=== PATIENT | female | born 1980 | race Caucasian/White ===

== ENCOUNTER 2018-02-09 11:40 | Emergency (ER) | payer SELFPAY ==
[2018-02-09 12:33] LABS: Urine Blood NEGATIVE (NEG); Urine Glucose NEGATIVE (NEG); Urine Protein NEGATIVE (NEG); Urine Specific Gravity 1.015 (1.005-1.030); Urine pH 7.5 (5.0-7.0)
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
[2018-02-09 14:04] VITALS: TEMP 98.4
[2018-02-09 14:05] VITALS: BP 117/82; O2SAT 99
== END 2018-02-09 13:46 | disposition home or self-care (01) ==
LOC: ER 11:40
DX: S60.222A Contusion of left hand, initial encounter (principal); V49.49XA Driver injured in collision with other motor vehicles in traffic accident, initial encounter; Z72.0 Tobacco use; F32.9 Major depressive disorder, single episode, unspecified
CPT/HCPCS: 72125; 81003; 81025; 99284

== ENCOUNTER 2018-03-13 16:04 | Emergency (ER) | payer SELFPAY ==
[2018-03-13 17:08] LABS: Barbiturates NEGATIVE (NEGATIVE); Benzodiazepines POSITIVE (NEGATIVE); Cocaine NEGATIVE (NEGATIVE); METHAMPHETAM NEGATIVE (NEGATIVE); Methadone NEGATIVE (NEGATIVE); Opiates NEGATIVE (NEGATIVE); Phencyclidine NEGATIVE (NEGATIVE); THC Cannibis POSITIVE (NEGATIVE)
[2018-03-13 17:32] LABS: Absolute Monocytes 0.4 K/uL (0.1-1.3); Absolute Neutrophil 3.7 K/uL (1.8-8.0); Basophils % 0.6 % (0-1.3); Eosinophils % 3.9 % (0-4.4); Hematocrit 41.6 % (36.0-45.0); Lymphocytes % 30.8 % (15.3-44.8); MCV 92.9 fL (80-100); MPV 9.8 fL (7.6-11.3); Monocytes % 6.5 % (3.3-12.3); RBC Red Blood Cell Count 4.48 M/uL (3.86-4.86)
[2018-03-13 17:37] LABS: Protime INR 1.02
[2018-03-13 18:15] LABS: ALT/SGPT 25 U/L (12-78); AST/SGOT 23 U/L (15-37); Albumin 4.2 g/dL (3.4-5.0); Alkaline Phosphatase 60 U/L (45-117); BUN Blood Urea Nitrogen 9 mg/dL (7-18); Bicarbonate 25 mmol/L (21-32); Bilirubin Direct 0.1 mg/dL (0-0.2); Bilirubin Total 0.6 mg/dL (0.2-1.0); CKMB Creatine Kinase MB < 1.0 ng/mL (0.3-3.6); Creatine Phosphokinase 166 U/L (26-192); Glucose Level 86 mg/dL (74-106); Magnesium 1.9 mg/dL (1.8-2.4); NT PRO-BNP 13 pg/mL (<125); Potassium 3.8 mmol/L (3.5-5.1); Protein, Total 8.1 g/dL (6.4-8.2); Sodium Level 133 mmol/L (136-145); Troponin (Emerg Dept Use Only) < 0.02 ng/mL (0.0-0.045)
[2018-03-13] MEDS ORDERED: ASPIRIN 81 MG CHEWABLE TABLET ONE (18:31)
[2018-03-13] MEDS ORDERED: NA CHLORIDE 0.9% 500 ML ONE (18:31)
--- NOTE | 2018-03-13 18:42 | ER ---
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 Transition of care: patient was not received from another setting of care. Onset of symptoms was March 13, 2018. Risk Assessment: Do you want to hurt yourself or someone else? Patient reports no desire to harm self or others. Initial Sepsis Screen: Does the patient meet any 2 criteria? No. Patient's initial sepsis screen is negative. Does the patient have a suspected source of infection? No. Patient's initial sepsis screen is negative. Care prior to arrival: None. 16:10 Method Of Arrival: Ambulatory aj 16:10 Acuity: CHARLEEN 3 aj Triage Assessment: 16:12 General: Appears in no apparent distress. comfortable, Behavior is calm, cooperative, aj appropriate for age. Pain: Complains of pain in left trapezius, right trapezius, left scapular area, right scapular area, left subscapular area, right subscapular area and thoracic area. Neuro: Level of Consciousness is awake, alert, obeys commands, Oriented to person, place, time, situation, Appropriate for age. Cardiovascular: Capillary refill < 3 seconds in bilateral fingers Patient's skin is warm and dry. Respiratory: Airway is patent Respiratory effort is even, unlabored, Respiratory pattern is regular, symmetrical. Derm: Skin is intact, is healthy with good turgor, Skin is pink, warm \\T\\ dry. normal. Musculoskeletal: Reports pain in back. 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 - Social history:: Smoking status: Patient uses tobacco products, smokes one-half pack cigarettes per day. - Ebola Screening: : Patient negative for fever greater than or equal to 101.5 degrees Fahrenheit, and additional compatible Ebola Virus Disease symptoms Patient denies exposure to infectious person Patient denies travel to an Ebola-affected area in the 21 days before illness onset No symptoms or risks identified at this time. - Family history:: not pertinent. Screenin:30 Abuse screen: Denies threats or abuse. Denies injuries from another. Nutritional jl7 screening: No deficits noted. Tuberculosis screening: No symptoms or risk factors identified. Fall Risk None identified. Assessment: 16:30 General: Appears in no apparent distress. uncomfortable, Behavior is cooperative, jl7 anxious. Pain: Complains of pain in mid-sternal area Pain radiates to right jaw, left jaw and back Pain currently is 4 out of 10 on a pain scale. at worst was 10 out of 10 on a pain scale. Quality of pain is described as squeezing, Pain began "I've always had chest pain with my period but it goes away and this is not going away and I'm not on my period." Is intermittent. Neuro: Level of Consciousness is awake, alert, obeys commands, Oriented to person, place, time, situation. Cardiovascular: Heart tones present Patient's skin is warm and dry. Respiratory: Airway is patent Respiratory effort is even, unlabored, Respiratory pattern is regular, symmetrical, Breath sounds are clear bilaterally. GI: Reports diarrhea, nausea, since X 1 month Patient currently denies vomiting. : No signs and/or symptoms were reported regarding the genitourinary system. EENT: No signs and/or symptoms were reported regarding the EENT system. Derm: Skin is pink, warm \\T\\ dry. Musculoskeletal: No signs and/or symptoms reported regarding the musculoskeletal system. 17:30 Reassessment: No changes from previously documented assessment. Patient and/or family jl7 updated on plan of care and expected duration. Pain level reassessed. Patient is alert, oriented x 3, equal unlabored respirations, skin warm/dry/pink. 18:30 Reassessment: Patient appears in no apparent distress at this time. Patient and/or jl7 family updated on plan of care and expected duration. Pain level reassessed. Patient is alert, oriented x 3, equal unlabored respirations, skin warm/dry/pink. 19:00 Reassessment: RECD REPORT FROM VINNY HODGE. 37YO WF P/W CP AND ANXIETY. INITIAL CARDIAC bp ENZYMES AND EKG NEGATIVE, REPEAT RESULTS PENDING. VS STABLE ON MONITOR. 19:47 Reassessment: Patient appears in no apparent distress at this time. Patient and/or tl2 family updated on plan of care and expected duration. Pain level reassessed. Patient is alert, oriented x 3, equal unlabored respirations, skin warm/dry/pink. Pt verbalized understanding of discharge instructions, need for follow up and prescription usage Patient states feeling better. Vital Signs: 16:12 BP 100 / 66; Pulse 83; Resp 15; Temp 98.4; Pulse Ox 100% on R/A; Weight 90.72 kg; aj Height 5 ft. 6 in. (167.64 cm); 17:25 BP 129 / 72; Pulse 76; Resp 16 S; Pulse Ox 100% on R/A; Pain 4/10; jl7 18:45 BP 110 / 73; Pulse 68; Resp 16; Pulse Ox 100% ; jl7 19:15 BP 111 / 72; Pulse 55; Resp 14; Pulse Ox 99% ; bp 19:47 BP 111 / 72; Pulse 65; Resp 18; Pulse Ox 99% on R/A; tl2 16:12 Body Mass Index 32.28 (90.72 kg, 167.64 cm) ED Course: 16:06 Patient arrived in ED. mr 16:06 Akiko Fraser DO is Private Physician. mr 16:11 Triage completed. 16:12 Arm band placed on right wrist. Patient placed in waiting room, Patient notified of wait time. 16:14 Dixon Donald MD is Attending Physician. [facility] 16:23 EKG done, by order entry technician. reviewed by Dixon Donald MD. 3 16:24 Vinny Taylor, NAVEEN is Primary Nurse. jl7 16:30 Patient has correct armband on for positive identification. Placed in gown. Bed in low jl7 position. Call light in reach. Side rails up X 1. conveyor monitor on. Pulse ox on. NIBP on. 16:30 Urine collected: clean catch specimen, clear. Patient maintains SpO2 saturation greater jl7 than 95% on room air. 17:22 Initial lab(s) drawn, by me, sent to lab. Inserted saline lock: 22 gauge in left wrist, jl7 using aseptic technique. Blood collected. 18:41 Akiko Fraser DO is Referral Physician. [facility] 19:10 Primary Nurse role handed off by Vinny Taylor RN jl7 19:10 Report given to NAVEEN Bailon. jl7 19:14 Uvaldo Ledesma RN is Primary Nurse. bp 19:47 No provider procedures requiring assistance completed. IV discontinued, intact, tl2 bleeding controlled, No redness/swelling at site. Pressure dressing applied. Administered Medications: 18:00 Drug: Aspirin Chewable Tablet 324 mg Route: PO; jl7 19:09 Follow up: Response: No adverse reaction jl7 18:00 Drug: NS 0.9% 500 ml Route: IV; Rate: bolus; Site: left wrist; jl7 19:19 Follow up: IV Status: Completed infusion; IV Intake: 500ml bp Intake: 19:19 IV: 500ml; Total: 500ml. bp Outcome: 18:42 Discharge ordered by . bailey 19:47 Discharged to home ambulatory, with family. tl2 19:47 Condition: stable 19:47 Discharge instructions given to patient, family, Instructed on discharge instructions, follow up and referral plans. medication usage, Demonstrated understanding of instructions, follow-up care, medications, Prescriptions given X 2. 19:52 Patient left the ED. tl2 Signatures: Herminia Barrow RN RN aj Anderson, Corey, MD MD cha Rivera, Maria mr Knox, Taylor, RN RN tl2 Vinny Taylor RN RN jl7 Peltier, Brian, RN RN bp Montes, Shakira 3 Corrections: (The following items were deleted from the chart) 19:10 18:30 Report given to NAVEEN Bailon7
--- NOTE | 2018-03-13 18:42 | EDPHYS ---
Physician Documentation [facility] Name: Minesh Hanley Age: 37 yrs Sex: Female : 1980 Arrival Date: 03/13/2018 Time: 16:06 Bed 6 Private MD: Akiko Fraser H ED Physician Dixon Donald HPI: 03/13 17:07 This 37 yrs old Female presents to ER via Ambulatory with complaints of Chest bailey Pain. 17:07 The patient or guardian reports chest pain that is located primarily in the anterior bailey chest wall. The pain radiates to. Associated signs and symptoms: Pertinent positives: shortness of breath. The chest pain is described as a pressure, squeezing. Duration: The patient or guardian reports multiple episodes, with no pattern. Modifying factors: The symptoms are alleviated by nothing. the symptoms are aggravated by nothing. Severity of pain: At its worst the pain was moderate in the emergency department the pain has improved mildly. The patient has not experienced similar symptoms in the past. 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 - Social history:: Smoking status: Patient uses tobacco products, smokes one-half pack cigarettes per day. - Ebola Screening: : Patient negative for fever greater than or equal to 101.5 degrees Fahrenheit, and additional compatible Ebola Virus Disease symptoms Patient denies exposure to infectious person Patient denies travel to an Ebola-affected area in the 21 days before illness onset No symptoms or risks identified at this time. - Family history:: not pertinent. ROS: 17:07 Constitutional: Negative for fever, chills, and weight loss, Eyes: Negative for injury, bailey pain, redness, and discharge, ENT: Negative for injury, pain, and discharge, Neck: Negative for injury, pain, and swelling, Respiratory: Negative for shortness of breath, cough, wheezing, and pleuritic chest pain, Abdomen/GI: Negative for abdominal pain, nausea, vomiting, diarrhea, and constipation, Back: Negative for injury and pain, : Negative for injury, bleeding, discharge, and swelling, MS/Extremity: Negative for injury and deformity, Skin: Negative for injury, rash, and discoloration, Neuro: Negative for headache, weakness, numbness, tingling, and seizure, Psych: Negative for depression, anxiety, suicide ideation, homicidal ideation, and hallucinations, Allergy/Immunology: Negative for hives, rash, and allergies, Endocrine: Negative for neck swelling, polydipsia, polyuria, polyphagia, and marked weight changes, Hematologic/Lymphatic: Negative for swollen nodes, abnormal bleeding, and unusual bruising. 17:07 Cardiovascular: Positive for chest pain, of the chest. Exam: 17:07 Constitutional: This is a well developed, well nourished patient who is awake, alert, bailey and in no acute distress. Head/Face: Normocephalic, atraumatic. Eyes: Pupils equal round and reactive to light, extra-ocular motions intact. Lids and lashes normal. Conjunctiva and sclera are non-icteric and not injected. Cornea within normal limits. Periorbital areas with no swelling, redness, or edema. ENT: Nares patent. No nasal discharge, no septal abnormalities noted. Tympanic membranes are normal and external auditory canals are clear. Oropharynx with no redness, swelling, or masses, exudates, or evidence of obstruction, uvula midline. Mucous membranes moist. Neck: Trachea midline, no thyromegaly or masses palpated, and no cervical lymphadenopathy. Supple, full range of motion without nuchal rigidity, or vertebral point tenderness. No Meningismus. Chest/axilla: Normal chest wall appearance and motion. Nontender with no deformity. No lesions are appreciated. Cardiovascular: Regular rate and rhythm with a normal S1 and S2. No gallops, murmurs, or rubs. Normal PMI, no JVD. No pulse deficits. Respiratory: Lungs have equal breath sounds bilaterally, clear to auscultation and percussion. No rales, rhonchi or wheezes noted. No increased work of breathing, no retractions or nasal flaring. Abdomen/GI: Soft, non-tender, with normal bowel sounds. No distension or tympany. No guarding or rebound. No evidence of tenderness throughout. Back: No spinal tenderness. No costovertebral tenderness. Full range of motion. Skin: Warm, dry with normal turgor. Normal color with no rashes, no lesions, and no evidence of cellulitis. MS/ Extremity: Pulses equal, no cyanosis. Neurovascular intact. Full, normal range of motion. Neuro: Awake and alert, GCS 15, oriented to person, place, time, and situation. Cranial nerves II-XII grossly intact. Motor strength 5/5 in all extremities. Sensory grossly intact. Cerebellar exam normal. Normal gait. Psych: Awake, alert, with orientation to person, place and time. Behavior, mood, and affect are within normal limits. 17:07 Musculoskeletal/extremity: DVT Exam: No signs of deep vein thrombosis. no pain, no swelling, no tenderness, negative Homans' sign noted on exam, no appreciated bluish discoloration, no erythema, no increased warmth. Vital Signs: 16:12 BP 100 / 66; Pulse 83; Resp 15; Temp 98.4; Pulse Ox 100% on R/A; Weight 90.72 kg; aj Height 5 ft. 6 in. (167.64 cm); 17:25 BP 129 / 72; Pulse 76; Resp 16 S; Pulse Ox 100% on R/A; Pain 4/10; jl7 18:45 BP 110 / 73; Pulse 68; Resp 16; Pulse Ox 100% ; jl7 19:15 BP 111 / 72; Pulse 55; Resp 14; Pulse Ox 99% ; bp 19:47 BP 111 / 72; Pulse 65; Resp 18; Pulse Ox 99% on R/A; tl2 16:12 Body Mass Index 32.28 (90.72 kg, 167.64 cm) MDM: 16:14 Patient medically screened. [facility] 17:09 Data reviewed: vital signs, nurses notes, lab test result(s), EKG. [facility] 03/13 16:17 Order name: Urine Culture [facility] 03/13 16:17 Order name: UDS; Complete Time: 18:20 [facility] 03/13 16:37 Order name: Urine Dipstick--Ancillary (enter results) 03/13 17:05 Order name: Test, Serum; Complete Time: 19:20 [facility] 03/13 17:07 Order name: Basic Metabolic Panel; Complete Time: 18:20 03/13 17:07 Order name: CBC with Diff; Complete Time: 18:20 03/13 17:07 Order name: Ckmb; Complete Time: 18:20 03/13 17:07 Order name: CPK; Complete Time: 18:20 03/13 17:07 Order name: LFT's; Complete Time: 18:20 03/13 17:07 Order name: Magnesium; Complete Time: 18:20 03/13 17:07 Order name: NT PRO-BNP; Complete Time: 18:20 03/13 17:07 Order name: PT-INR; Complete Time: 18:20 03/13 17:07 Order name: Ptt, Activated; Complete Time: 18:20 03/13 17:07 Order name: Troponin (emerg Dept Use Only); Complete Time: 18:20 03/13 16:17 Order name: Urine Dipstick-Ancillary (obtain specimen); Complete Time: 16:37 03/13 16:17 Order name: Urine Test (obtain specimen); Complete Time: 19:05 03/13 16:17 Order name: EKG; Complete Time: 16:17 03/13 16:17 Order name: EKG - Nurse/Tech; Complete Time: 16:38 03/13 17:07 Order name: Cardiac monitoring; Complete Time: 17:21 03/13 17:07 Order name: IV Saline Lock; Complete Time: 17:21 03/13 17:07 Order name: Labs collected and sent; Complete Time: 17:21 03/13 17:07 Order name: O2 Per Protocol; Complete Time: 17:21 03/13 17:07 Order name: O2 Sat Monitoring; Complete Time: 17:21 03/13 17:07 Order name: D-Dimer; Complete Time: 18:20 03/13 18:40 Order name: Ckmb; Complete Time: 19:41 03/13 18:40 Order name: Creatine Phosphokinase; Complete Time: 19:41 03/13 18:40 Order name: Troponin (emerg Dept Use Only); Complete Time: 19:41 03/13 18:40 Order name: Repeat Cardiac Enzymes at; Complete Time: 19:05 [facility] Administered Medications: 18:00 Drug: Aspirin Chewable Tablet 324 mg Route: PO; [facility] 19:09 Follow up: Response: No adverse reaction [facility] 18:00 Drug: NS 0.9% 500 ml Route: IV; Rate: bolus; Site: left wrist; [facility] 19:19 Follow up: IV Status: Completed infusion; IV Intake: 500ml bp Disposition: 03/13/18 18:42 Discharged to Home. Impression: Chest pain, unspecified. - Condition is Stable. - Discharge Instructions: Nonspecific Chest Pain, Nonspecific Chest Pain, [id number]. - Prescriptions for Pepcid 20 mg Oral Tablet - take 1 tablet by ORAL route every 12 hours for 10 days; 20 tablet. Motrin IB 200 mg Oral Tablet - take 2 tablet by ORAL route every 6 hours As needed as needed with food; 30 tablet. - Medication Reconciliation Form, Thank You Letter, Antibiotic Education, Prescription Opioid Use form. - Follow up: Akiko Fraser DO; When: 1 - 2 days; Reason: Recheck today's complaints, Continuance of care, Re-evaluation by your physician. - Problem is new. - Symptoms have improved. Signatures: Dispatcher [employer] EDHerminia Galan, RN RN Dixon Dietz MD MD cha Knox, Taylor, RN RN tl2 Calin Taylor RN RN jl7 Uvaldo Ledesma RN bp Corrections: (The following items were deleted from the chart) 19:52 18:42 03/13/2018 18:42 Discharged to Home. Impression: Chest pain, unspecified. tl2 Condition is Stable. Forms are Medication Reconciliation Form, Thank You Letter, Antibiotic Education, Prescription Opioid Use. Follow up: Akiko Fraser; When: 1 - 2 days; Reason: Recheck today's complaints, Continuance of care, Re-evaluation by your physician. Problem is new. Symptoms have improved. bailey
[2018-03-13 19:26] LABS: CKMB Creatine Kinase MB < 1.0 ng/mL (0.3-3.6); Creatine Phosphokinase 126 U/L (26-192); Troponin (Emerg Dept Use Only) < 0.02 ng/mL (0.0-0.045)
[2018-03-13 20:06] VITALS: TEMP 98.4
[2018-03-13 20:08] VITALS: BP 111/72; O2SAT 99
[2018-03-13 20:31] LABS: Urine Blood TRACE (NEG); Urine Glucose NEGATIVE (NEG); Urine Protein NEGATIVE (NEG); Urine Specific Gravity 1.005 (1.005-1.030); Urine pH 5.5 (5.0-7.0)
--- NOTE | 2018-03-14 12:10 | EKG ---
Test Date: 2018-03-13 Test Time: 16:19:00 Fish Technologist: ANDRADE MEASUREMENT RESULTS: Intervals: Rate: 90 MD: 114 QRSD: 74 QT: 344 QTc: 420 [place]: P: 72 MD: 114 QRS: 66 T: 45 INTERPRETIVE STATEMENTS: Normal sinus rhythm with sinus arrhythmia Nonspecific T wave abnormality Abnormal ECG Compared to ECG 01/21/2016 11:43:36 T-wave abnormality now present Electronically Signed On 03-14-18 12:07:37 CDT by Víctor Putnam
== END 2018-03-13 19:52 | disposition home or self-care (01) ==
LOC: ER 16:04
DX: R07.9 Chest pain, unspecified (principal); F17.210 Nicotine dependence, cigarettes, uncomplicated; F32.9 Major depressive disorder, single episode, unspecified; F41.9 Anxiety disorder, unspecified
CPT/HCPCS: 36415; 80048; 80076; 80307; 81003; 82550; 82553; 83735; 83880; 84484; 84703; 85025; 85379; 85610; 85730; 87086; 87088; 93005; 96360; 99285

== ENCOUNTER 2018-09-25 23:03 | Emergency (ER) | payer SELFPAY ==
[2018-09-25 23:41] LABS: Barbiturates NEGATIVE (NEGATIVE); Benzodiazepines NEGATIVE (NEGATIVE); Cocaine NEGATIVE (NEGATIVE); METHAMPHETAM NEGATIVE (NEGATIVE); Methadone NEGATIVE (NEGATIVE); Opiates NEGATIVE (NEGATIVE); Phencyclidine NEGATIVE (NEGATIVE); THC Cannibis POSITIVE (NEGATIVE)
[2018-09-25 23:47] LABS: Urine Blood 1+ (NEG); Urine Glucose NEGATIVE (NEG); Urine Protein NEGATIVE (NEG); Urine Specific Gravity <1.005 (1.005-1.030); Urine pH 5.5 (5.0-7.0)
[2018-09-25 23:59] LABS: Absolute Lymphocytes (CBC) 2.3 K/uL (0.7-4.9); Absolute Monocytes 0.4 K/uL (0.1-1.3); Absolute Neutrophil 2.9 K/uL (1.8-8.0); Basophils % 0.3 % (0-1.3); Eosinophils % 2.4 % (0-4.4); Hematocrit 40.5 % (36.0-45.0); Lymphocytes % 39.9 % (15.3-44.8); MPV 10.2 fL (7.6-11.3); Monocytes % 6.8 % (3.3-12.3); RBC Red Blood Cell Count 4.35 M/uL (3.86-4.86)
[2018-09-26 00:04] LABS: Protime INR 1.06
[2018-09-26 00:21] LABS: ALT/SGPT 28 U/L (12-78); AST/SGOT 19 U/L (15-37); Albumin 3.9 g/dL (3.4-5.0); Alkaline Phosphatase 60 U/L (45-117); BUN Blood Urea Nitrogen 5 mg/dL (7-18); Bicarbonate 24 mmol/L (21-32); Bilirubin Direct 0.1 mg/dL (0-0.2); Bilirubin Total 0.4 mg/dL (0.2-1.0); Glucose Level 97 mg/dL (74-106); Potassium 3.4 mmol/L (3.5-5.1); Protein, Total 7.5 g/dL (6.4-8.2); Sodium Level 142 mmol/L (136-145)
[2018-09-26] MEDS ORDERED: ONDANSETRON 4 MG/2 ML VIAL ONE (00:32)
[2018-09-26] MEDS ORDERED: TETANUS & DIPHTHERIA TOX,ADULT 0.5 ML VIAL ONE (00:39)
[2018-09-26] MEDS ORDERED: THIAMINE 200 MG/2 ML INJ ONE (00:39)
[2018-09-26] MEDS ORDERED: NA CHLORIDE 0.9% 1,000 ML ONE (00:39)
[2018-09-26] MEDS ORDERED: D5.45NS W/KCL 20MEQ 1,000 ML IV ONE (01:53)
[2018-09-26] MEDS ORDERED: LIDOCAINE 1% W/EPI 1:100,000 MDV 50 ML VIAL ONE (06:07)
--- NOTE | 2018-09-26 06:32 | ER ---
Nurse's Notes [facility] Name: Minesh Hanley Age: 37 yrs Sex: Female : 1980 Arrival Date: 09/25/2018 Time: 23:07 Bed 17 Private MD: Diagnosis: Suicidal ideations;Suicide attempt;Major depressive disorder, recurrent;Alcohol abuse with intoxication;Hypokalemia;Laceration without foreign body of abdominal wall, epigastric region without penetration into peritoneal cavity-superficial Presentation: 09/25 23:13 Presenting complaint: Patient states: she was upset because her significant other left aa1 her yesterday and took their kids with him and wanted to hurt herself. Pt has multiple self-inflicted lacerations to abdomen from a razor blade with no active bleeding. Reports she has made previous attempts to harm herself in the past as well. Transition of care: patient was not received from another setting of care. Onset of symptoms was September 25, 2018. Risk Assessment: Do you want to hurt yourself or someone else? Patient reports desire/thoughts of hurting themselves or someone else. Provider notified. Initial Sepsis Screen: Does the patient meet any 2 criteria? No. Patient's initial sepsis screen is negative. Does the patient have a suspected source of infection? Yes: Skin breakdown/wound. Care prior to arrival: None. 23:13 Method Of Arrival: EMS: [facility] aa1 23:13 Acuity: CHARLEEN 2 aa1 Triage Assessment: 23:18 General: Appears in no apparent distress. comfortable, Behavior is calm, cooperative, aa1 appropriate for age. Pain: Denies pain. Historical: - Allergies: 23:18 No Known Allergies; aa1 - Home Meds: 23:18 Cymbalta 60 mg Oral cpDR 1 cap once daily [Active]; Klonopin 2 mg Oral tab 1 tab 2 aa1 times per day [Active]; - PMHx: 23:18 Anxiety; psy cutter-depression; Ovarian cyst; aa1 - PSHx: 23:18 Cholecystectomy; Appendectomy; aa1 - Immunization history:: Last tetanus immunization: < 5 years ago. - Social history:: Smoking status: Patient/guardian denies using tobacco, Patient uses alcohol. - Ebola Screening: : No symptoms or risks identified at this time. - Family history:: not pertinent. Screenin:29 Abuse screen: Denies threats or abuse. Denies injuries from another. Nutritional ed1 screening: No deficits noted. Tuberculosis screening: No symptoms or risk factors identified. Fall Risk No fall in past 12 months (0 pts). No secondary diagnosis (0 pts). IV access (20 points). Ambulatory Aid- None/Bed Rest/Nurse Assist (0 pts). Gait- Normal/Bed Rest/Wheelchair (0 pts) Mental Status- Oriented to own ability (0 pts). Total Nye Fall Scale indicates No Risk (0-24 pts). Assessment: 23:29 General: Appears distressed, Behavior is cooperative, crying, Smells of alcohol. Pain: ed1 Denies pain. Neuro: Level of Consciousness is awake, alert, obeys commands, Oriented to person, place, time, situation. Cardiovascular: Denies chest pain, Heart tones S1 S2 present. Respiratory: Airway is patent Respiratory effort is even, unlabored, Respiratory pattern is regular, symmetrical, Breath sounds are clear bilaterally. GI: Abdomen is non-distended, Bowel sounds present X 4 quads. Abd is soft and non tender X 4 quads. Patient currently denies diarrhea, nausea, vomiting. : No signs and/or symptoms were reported regarding the genitourinary system. EENT: No signs and/or symptoms were reported regarding the EENT system. Derm: Skin is healthy with good turgor, Skin is dry, Skin is normal, Skin temperature is warm Wound noted abdomen Wound is lacerations made with razorblade. Musculoskeletal: Circulation, motion, and sensation intact. Range of motion: intact in all extremities. 09/26 00:15 Reassessment: Patient appears in no apparent distress at this time. No changes from ed1 previously documented assessment. Patient and/or family updated on plan of care and expected duration. Pain level reassessed. Patient is alert, oriented x 3, equal unlabored respirations, skin warm/dry/pink. 00:25 GI: Pt is actively vomiting clear fluid, undigested food. ed1 01:20 Reassessment: Patient appears in no apparent distress at this time. Respiratory: Airway ed1 is patent Respiratory effort is even, unlabored, Respiratory pattern is regular, symmetrical. 02:13 Reassessment: Patient appears in no apparent distress at this time. No changes from ed1 previously documented assessment. 04:00 Reassessment: Patient appears in no apparent distress at this time. Patient and/or tl2 family updated on plan of care and expected duration. Pain level reassessed. pt appears to be sleeping at this time, RR even and unlabored. Awaiting lab results. 06:40 Reassessment: MD at bedside with pt speaking about plan of care. Pt stated she would tl2 like to follow up outpatient. MD explained risks of leaving and when it is appropriate to return to ER. Family at bedside with patient and verbalized understanding. Mental health resources provided to pt. Pt verbalized understanding of discharge instructions and need for follow up with psychiatry. Psych: 09/25 23:33 Subjective: Patient's mood is sad, hopeless, Delusions are denied, Hallucinations are ed1 denied Having thoughts of suicide. Plan for suicide is cut self. Objective: Patient is cooperative, Speech is normal, Affect is appropriate, Patient has mutilated themselves by cutting abdomen with razor blade. Interventions: Removed personal items and placed in bag. Patient placed in hospital gown. Searched person for dangerous items. Urine collected and sent for urine drug test. Belonging list filled out. Patient reassessed during use of restraints. Patient is physically safe. Patient's cardiac status is stable. Patient's respirations are even and unlabored. Patient has good circulation in all extremities as indicated by capillary refill < 3 seconds. Patient's ROM assessed and is intact. Patient nutrition and hydration needs will continue to be monitored and addressed. Patient hygiene and elimination needs met. Patient assessed for signs of distress. Patient remains reasonably comfortable at this time. Suicide Risk Assessment: Sad Person Scale: Sex of patient: Female: Score 0 points. Age of patient: Score 0 point if patient falls outside of specified age parameters. Depression: Score 1 point if signs of depression are present. Previous Attempt: Score 1 point if patient has previously attempted suicide. Substance Abuse: Score 1 point if patient abuses alcohol or drugs. Rational Thinking: Score 1 point if patient is lacking rational thinking. Social Support: Score 1 point if social support is lacking and/or unavailable. Organized Plan: Score 1 point if patient had a plan in place. Relationship: Score 1 point if patient is , , , or for a single male Chronic Sickness: Score 0 point if patient does not have a chronic illness, debilitating, or severe disorder. TOTAL POINTS: If total points are 7-10, the proposed clinical action is to hospitalize or commit. Implement suicide precautions. Safety Checks: Personal items have been removed. Door is open. No visitors are present at this time. Patient uses 1 bottle of wine, monthly Last use was 2 hours ago. Patient does not have a history of DTs. Commitment: Patient will be a voluntary commitment. Vital Signs: 23:18 BP 116 / 86; Pulse 87; Resp 16; Temp 98.0; Pulse Ox 97% on R/A; Weight 95.25 kg; Height aa1 5 ft. 6 in. (167.64 cm); Pain 0/10; 09/26 01:20 BP 124 / 76; Pulse 79; Resp 19; Pulse Ox 100% on R/A; Pain 0/10; ed1 05:27 BP 126 / 76; Pulse 78; Resp 18; Temp 97.8(O); Pulse Ox 100% on R/A; oe 09/25 23:18 Body Mass Index 33.89 (95.25 kg, 167.64 cm) aa1 ED Course: 09/25 23:07 Patient arrived in ED. tl2 23:17 Triage completed. aa1 23:18 Arm band placed on right wrist. Patient placed in an exam room, on a stretcher, in view aa1 of staff members. 23:25 Safety checks: Items removed: yes. Door open/sign placed on door: yes. Family/friend oe present: no. Sitter present: Yes. 23:28 Hina Hay, RN is Primary Nurse. ed1 23:29 Patient has correct armband on for positive identification. Placed in gown. Bed in low ed1 position. Side rails up X2. Valuables inventory done. Locked in safe. See valuables checklist. 23:29 Initial lab(s) drawn, by me, sent to lab. Urine collected: clean catch specimen, clear, ed1 EKG done, by ED staff, reviewed by Dixon Donald MD. Inserted saline lock: 22 gauge in right forearm, using aseptic technique. Blood collected. 23:45 Safety checks: Items removed: yes. Door open/sign placed on door: yes. Family/friend oe present: no. Sitter present: Yes. 09/26 00:00 Safety checks: Items removed: yes. Door open/sign placed on door: yes. Family/friend oe present: yes. Sitter present: Yes. 00:15 Safety Checks: Personal items have been removed. The door is open or patient has been ed1 placed in a hallway bed/chair. A family member and/or friend is present and encouraged to stay. Sitter present at this time. 00:15 Safety checks: Items removed: yes. Door open/sign placed on door: yes. Family/friend oe present: yes. Sitter present: Yes. 00:18 Dixon Donald MD is Attending Physician. [facility] 00:30 Safety Checks: Personal items have been removed. The door is open or patient has been ed1 placed in a hallway bed/chair. A family member and/or friend is present and encouraged to stay. Sitter present at this time. 00:30 Safety checks: Items removed: yes. Door open/sign placed on door: yes. Family/friend oe present: yes. Sitter present: Yes. 00:45 Safety Checks: Personal items have been removed. The door is open or patient has been ed1 placed in a hallway bed/chair. A family member and/or friend is present and encouraged to stay. Sitter present at this time. 00:45 Safety checks: Items removed: yes. Door open/sign placed on door: yes. Family/friend oe present: yes. Sitter present: Yes. 01:00 Safety Checks: Personal items have been removed. The door is open or patient has been ed1 placed in a hallway bed/chair. A family member and/or friend is present and encouraged to stay. Sitter present at this time. 01:00 Safety checks: Items removed: yes. Door open/sign placed on door: yes. Family/friend oe present: yes. Sitter present: Yes. 01:15 Safety Checks: Personal items have been removed. The door is open or patient has been ed1 placed in a hallway bed/chair. A family member and/or friend is present and encouraged to stay. Sitter present at this time. 01:15 Safety checks: Items removed: yes. Door open/sign placed on door: yes. Family/friend oe present: yes. Sitter present: Yes. 01:20 Appears to be sleeping. ed1 01:30 Safety Checks: Personal items have been removed. The door is open or patient has been ed1 placed in a hallway bed/chair. A family member and/or friend is present and encouraged to stay. Sitter present at this time. 01:30 Safety checks: Items removed: yes. Door open/sign placed on door: yes. Family/friend oe present: yes. Sitter present: Yes. 01:45 Safety Checks: Personal items have been removed. The door is open or patient has been ed1 placed in a hallway bed/chair. A family member and/or friend is present and encouraged to stay. Sitter present at this time. 01:45 Safety checks: Items removed: yes. Door open/sign placed on door: yes. Family/friend oe present: yes. Sitter present: Yes. 02:00 Safety checks: Items removed: yes. Door open/sign placed on door: yes. Family/friend oe present: yes. Sitter present: Yes. 02:13 Appears to be sleeping. ed1 02:15 Safety checks: Items removed: yes. Door open/sign placed on door: yes. Family/friend oe present: yes. Sitter present: Yes. 02:30 Safety checks: Items removed: yes. Door open/sign placed on door: yes. Family/friend oe present: yes. Sitter present: Yes. 02:45 Safety checks: Items removed: yes. Door open/sign placed on door: yes. Family/friend oe present: yes. Sitter present: Yes. 03:00 Safety checks: Items removed: yes. Door open/sign placed on door: yes. Family/friend oe present: yes. Sitter present: Yes. 03:15 Safety checks: Items removed: yes. Door open/sign placed on door: yes. Family/friend oe present: yes. Sitter present: Yes. 03:19 Primary Nurse role handed off by Hina Hay RN ed1 03:30 Safety checks: Items removed: yes. Door open/sign placed on door: yes. Family/friend oe present: yes. Sitter present: Yes. 03:45 Safety checks: Items removed: yes. Door open/sign placed on door: yes. Family/friend oe present: yes. Sitter present: Yes. 04:00 Safety checks: Items removed: yes. Door open/sign placed on door: yes. Family/friend oe present: yes. Sitter present: Yes. 04:15 Safety checks: Items removed: yes. Door open/sign placed on door: yes. Family/friend oe present: yes. Sitter present: Yes. 04:30 Safety checks: Items removed: yes. Door open/sign placed on door: yes. Family/friend oe present: yes. Sitter present: Yes. 04:45 Safety checks: Items removed: yes. Door open/sign placed on door: yes. Family/friend oe present: yes. Sitter present: Yes. 05:00 Safety checks: Items removed: yes. Door open/sign placed on door: yes. Family/friend oe present: yes. Sitter present: Yes. 05:15 Safety checks: Items removed: yes. Door open/sign placed on door: yes. Family/friend oe present: yes. Sitter present: Yes. 05:30 Safety checks: Items removed: yes. Door open/sign placed on door: yes. Family/friend oe present: yes. Sitter present: Yes. 05:30 Wound care: to laceration located on epigastric area was cleaned with Hibiclens, tl2 dressed with steri strips, Patient tolerated well. 05:45 Safety checks: Items removed: yes. Door open/sign placed on door: yes. Family/friend oe present: yes. Sitter present: Yes. 06:00 Safety checks: Items removed: yes. Door open/sign placed on door: yes. Family/friend oe present: yes. Sitter present: Yes. 06:15 Safety checks: Items removed: yes. Door open/sign placed on door: yes. Family/friend oe present: yes. Sitter present: Yes. 06:20 Assist provider with laceration repair on epigastric area that was between 2.6 to 7.5 tl2 cm using arron. Set up tray. Performed by Dixon Donald MD Patient tolerated well. 06:30 Safety checks: Items removed: yes. Door open/sign placed on door: yes. Family/friend oe present: yes. Sitter present: Yes. 06:31 Rodrigo Vega MD is Referral Physician. [facility] 06:40 IV discontinued, intact, bleeding controlled, No redness/swelling at site. Pressure tl2 dressing applied. 06:45 Safety checks: Items removed: yes. Door open/sign placed on door: yes. Family/friend oe present: yes. Sitter present: Yes. 06:55 Lopez, Mariana, NAVEEN is Primary Nurse. tl2 Administered Medications: Discontinued: D5-1/2 NS with KCl 20 mEq/L 1000 ml IV at 125 ml/hr continuous 00:25 Drug: Zofran 4 mg Route: IVP; Site: right forearm; ed1 01:48 Follow up: Response: No adverse reaction; Nausea is decreased ed1 00:34 Drug: NS 0.9% 1000 ml Route: IV; Rate: 1 bolus; Site: right forearm; ed1 01:46 Follow up: IV Status: Completed infusion; IV Intake: 1000ml ed1 00:35 Drug: Tetanus-Diphtheria Toxoid Adult 0.5 ml {Health Insurance Assessor: [employer]. Exp: ed1 08/13/2020. Lot #: [id number]. } Route: IM; Site: right deltoid; 01:48 Follow up: Response: No adverse reaction ed1 00:35 Drug: Thiamine 100 mg Route: IV; Rate: bolus; Site: right forearm; ed1 01:48 Follow up: Response: No adverse reaction; IV Status: Completed infusion; IV Intake: 1ml ed1 01:50 Drug: D5-1/2 NS with KCl 20 mEq/L 1000 ml Route: IV; Rate: 125 ml/hr; Site: right ed1 forearm; 06:18 Drug: Lidocaine-Epinephrine -1%: (1:100,000) 6 ml Volume: 20 ml; Route: Infiltration; tl2 Intake: 01:46 IV: 1000ml; Total: 1000ml. ed1 01:48 IV: 1ml; Total: 1001ml. ed1 Outcome: 06:31 Discharge ordered by . [facility] 06:40 Discharged to home ambulatory, with family. tl2 06:40 Condition: stable 06:40 Discharge instructions given to patient, family, Instructed on discharge instructions, follow up and referral plans. Demonstrated understanding of instructions, follow-up care. 07:01 Patient left the ED. tl2 Signatures: Melanie Christian RN RN aa1 Dixon Donald MD MD cha Riggs, Erika RN RN ed1 Mariana Lopez RN RN tl2 Rajeev Thompson Corrections: (The following items were deleted from the chart) 05:31 05:29 Safety checks: Items removed: oe oe 06:22 05:30 Safety checks: Items removed: yes. Door open/sign placed on door: yes. oe Family/friend present: yes. Sitter present: Yes. oe 06:56 06:27 Safety checks: Items removed: yes. Door open/sign placed on door: yes. oe Family/friend present: yes. Sitter present: Yes. oe
--- NOTE | 2018-09-26 06:32 | EDPHYS ---
Physician Documentation [facility] Name: Minesh Hanley Age: 37 yrs Sex: Female : 1980 Arrival Date: 09/25/2018 Time: 23:07 Bed 17 Private MD: ED Physician Dixon Donald HPI: 09/26 00:26 This 37 yrs old Female presents to ER via EMS with complaints of Suicidal bailey Ideation. 00:26 The patient presents to the emergency department with depression, over a relationship, bailey has had a recent break-up. Onset: The symptoms/episode began/occurred 2 day(s) ago. Past psychiatric history: Prior diagnosis: depression. Associated signs and symptoms: The patient has no apparent associated signs or symptoms. Severity of symptoms: At their worst the symptoms were mild moderate in the emergency department the symptoms. The patient has experienced similar episodes in the past, several times. Historical: - Allergies: 09/25 23:18 No Known Allergies; aa1 - Home Meds: 23:18 Cymbalta 60 mg Oral cpDR 1 cap once daily [Active]; Klonopin 2 mg Oral tab 1 tab 2 aa1 times per day [Active]; - PMHx: 23:18 Anxiety; psy cutter-depression; Ovarian cyst; aa1 - PSHx: 23:18 Cholecystectomy; Appendectomy; aa1 - Immunization history:: Last tetanus immunization: < 5 years ago. - Social history:: Smoking status: Patient/guardian denies using tobacco, Patient uses alcohol. - Ebola Screening: : No symptoms or risks identified at this time. - Family history:: not pertinent. ROS: 09/26 00:26 Constitutional: Negative for fever, chills, and weight loss, Eyes: Negative for injury, bailey pain, redness, and discharge, ENT: Negative for injury, pain, and discharge, Neck: Negative for injury, pain, and swelling, Cardiovascular: Negative for chest pain, palpitations, and edema, Respiratory: Negative for shortness of breath, cough, wheezing, and pleuritic chest pain, Back: Negative for injury and pain, : Negative for injury, bleeding, discharge, and swelling, MS/Extremity: Negative for injury and deformity, Skin: Negative for injury, rash, and discoloration, Neuro: Negative for headache, weakness, numbness, tingling, and seizure, Psych: Negative for depression, anxiety, suicide ideation, homicidal ideation, and hallucinations, Allergy/Immunology: Negative for hives, rash, and allergies, Endocrine: Negative for neck swelling, polydipsia, polyuria, polyphagia, and marked weight changes, Hematologic/Lymphatic: Negative for swollen nodes, abnormal bleeding, and unusual bruising. Abdomen/GI: Positive for nausea and vomiting. Exam: 00:26 Constitutional: This is a well developed, well nourished patient who is awake, alert, bailey and in no acute distress. Head/Face: Normocephalic, atraumatic. Eyes: Pupils equal round and reactive to light, extra-ocular motions intact. Lids and lashes normal. Conjunctiva and sclera are non-icteric and not injected. Cornea within normal limits. Periorbital areas with no swelling, redness, or edema. ENT: Nares patent. No nasal discharge, no septal abnormalities noted. Tympanic membranes are normal and external auditory canals are clear. Oropharynx with no redness, swelling, or masses, exudates, or evidence of obstruction, uvula midline. Mucous membranes moist. Neck: Trachea midline, no thyromegaly or masses palpated, and no cervical lymphadenopathy. Supple, full range of motion without nuchal rigidity, or vertebral point tenderness. No Meningismus. Chest/axilla: Normal chest wall appearance and motion. Nontender with no deformity. No lesions are appreciated. Cardiovascular: Regular rate and rhythm with a normal S1 and S2. No gallops, murmurs, or rubs. Normal PMI, no JVD. No pulse deficits. Respiratory: Lungs have equal breath sounds bilaterally, clear to auscultation and percussion. No rales, rhonchi or wheezes noted. No increased work of breathing, no retractions or nasal flaring. Back: No spinal tenderness. No costovertebral tenderness. Full range of motion. MS/ Extremity: Pulses equal, no cyanosis. Neurovascular intact. Full, normal range of motion. Neuro: Awake and alert, GCS 15, oriented to person, place, time, and situation. Cranial nerves II-XII grossly intact. Motor strength 5/5 in all extremities. Sensory grossly intact. Cerebellar exam normal. Normal gait. Psych: Awake, alert, with orientation to person, place and time. Behavior, mood, and affect are within normal limits. 00:26 Skin: injury, laceration(s), multiple laceration, superficial; abdomen. Vital Signs: 09/25 23:18 BP 116 / 86; Pulse 87; Resp 16; Temp 98.0; Pulse Ox 97% on R/A; Weight 95.25 kg; Height aa1 5 ft. 6 in. (167.64 cm); Pain 0/10; 09/26 01:20 BP 124 / 76; Pulse 79; Resp 19; Pulse Ox 100% on R/A; Pain 0/10; ed1 05:27 BP 126 / 76; Pulse 78; Resp 18; Temp 97.8(O); Pulse Ox 100% on R/A; oe 09/25 23:18 Body Mass Index 33.89 (95.25 kg, 167.64 cm) aa1 Laceration: 06:44 Wound Repair of 6cm ( 2.4in ) subcutaneous laceration to epigastric area and abdomen. bailey Linear shaped.. Distal neuro/vascular/tendon intact. Anesthesia: Local anesthetic administered with 10 mls of 1% lidocaine w/ Epi. Wound prep: Moderate cleansing by me. Skin closed with 6 arron [place] using staple gun. Dressed with Neosporin. Patient tolerated well. MDM: 00:18 Patient medically screened. [facility] 00:26 Data reviewed: vital signs, nurses notes, lab test result(s), EKG, radiologic studies, [facility] plain films. 09/25 23:11 Order name: Acetaminophen; Complete Time: 00:24 09/25 23:11 Order name: Basic Metabolic Panel; Complete Time: 00:24 09/25 23:11 Order name: CBC with Diff; Complete Time: 00:24 09/25 23:11 Order name: ETOH Level; Complete Time: 01:14 09/25 23:11 Order name: Hepatic Function; Complete Time: 00:24 09/25 23:11 Order name: PT-INR; Complete Time: 00:24 09/25 23:11 Order name: Ptt, Activated; Complete Time: 00:24 09/25 23:11 Order name: Salicylate; Complete Time: 05:36 09/25 23:11 Order name: Urine Drug Screen; Complete Time: 00:24 09/25 23:24 Order name: Urine Dipstick--Ancillary (enter results); Complete Time: 00:24 ar5 09/25 23:11 Order name: Urine Test (obtain specimen); Complete Time: 23:24 09/25 23:11 Order name: EKG; Complete Time: 23:11 09/25 23:11 Order name: EKG - Nurse/Tech; Complete Time: 23:24 09/25 23:11 Order name: IV Saline Lock; Complete Time: 23:24 09/25 23:11 Order name: Labs collected and sent; Complete Time: 23:24 09/25 23:11 Order name: Urine Dipstick-Ancillary (obtain specimen); Complete Time: 23:24 09/26 00:24 Order name: Wound Care; Complete Time: 05:29 bailey 09/26 05:57 Order name: Dressing - Wound; Complete Time: 06:02 bailey 09/26 05:57 Order name: Gloves, Sterile; Complete Time: 06:02 bailey 09/26 05:57 Order name: Setup Suture Tray; Complete Time: 06:03 [facility] Administered Medications: Discontinued: D5-1/2 NS with KCl 20 mEq/L 1000 ml IV at 125 ml/hr continuous 00:25 Drug: Zofran 4 mg Route: IVP; Site: right forearm; ed1 01:48 Follow up: Response: No adverse reaction; Nausea is decreased ed1 00:34 Drug: NS 0.9% 1000 ml Route: IV; Rate: 1 bolus; Site: right forearm; ed1 01:46 Follow up: IV Status: Completed infusion; IV Intake: 1000ml ed1 00:35 Drug: Tetanus-Diphtheria Toxoid Adult 0.5 ml {Tube Closing Machine Operator: Xamplified. Exp: ed1 08/13/2020. Lot #: [id number]. } Route: IM; Site: right deltoid; 01:48 Follow up: Response: No adverse reaction ed1 00:35 Drug: Thiamine 100 mg Route: IV; Rate: bolus; Site: right forearm; ed1 01:48 Follow up: Response: No adverse reaction; IV Status: Completed infusion; IV Intake: 1ml ed1 01:50 Drug: D5-1/2 NS with KCl 20 mEq/L 1000 ml Route: IV; Rate: 125 ml/hr; Site: right ed1 forearm; 06:18 Drug: Lidocaine-Epinephrine -1%: (1:100,000) 6 ml Volume: 20 ml; Route: Infiltration; tl2 Disposition: 09/26/18 06:31 Discharged to Home. Impression: Suicidal ideations, Suicide attempt, Major depressive disorder, recurrent, Alcohol abuse with intoxication, Hypokalemia, Laceration without foreign body of abdominal wall, epigastric region without penetration into peritoneal cavity - superficial. - Condition is Stable. - Discharge Instructions: Alcohol Intoxication, Laceration Care, Adult, Suicidal Feelings: How to Help Yourself, Helping Someone Who is Suicidal, Alcohol Intoxication, Elny-rs-Knox, Laceration Care, Adult, [id number]-Hsdf, Stress and Stress Management, Hypokalemia. - Medication Reconciliation Form, Thank You Letter, Antibiotic Education, Prescription Opioid Use form. - Follow up: Private Physician; When: 2 - 3 days; Reason: Recheck today's complaints, Continuance of care, Re-evaluation by your physician. Follow up: Rodrigo Vega; When: 2 - 3 days; Reason: Recheck today's complaints, Continuance of care, Re-evaluation by your physician. - Problem is new. - Symptoms have improved. Signatures: Dispatcher [employer] EDMS Melanie Christian RN RN aa1 Dixon Donald MD MD cha Riggs, Erika, RN RN ed1 Mariana Lopez RN RN tl2 Corrections: (The following items were deleted from the chart) 07:01 06:31 09/26/2018 06:31 Discharged to Home. Impression: Suicidal ideations; Suicide tl2 attempt; Major depressive disorder, recurrent; Alcohol abuse with intoxication; Hypokalemia; Laceration without foreign body of abdominal wall, epigastric region without penetration into peritoneal cavity - superficial. Condition is Stable. Discharge Instructions: Alcohol Intoxication, Suicidal Feelings: How to Help Yourself, Helping Someone Who is Suicidal, Alcohol Intoxication, [id number]-Jrwp, Stress and Stress Management, Laceration Care, Adult, Laceration Care, Adult, Cdlc-up-Vwni, Hypokalemia. Forms are Medication Reconciliation Form, Thank You Letter, Antibiotic Education, Prescription Opioid Use. Follow up: Private Physician; When: 2 - 3 days; Reason: Recheck today's complaints, Continuance of care, Re-evaluation by your physician. Follow up: Rodrigo Vega; When: 2 - 3 days; Reason: Recheck today's complaints, Continuance of care, Re-evaluation by your physician. Problem is new. Symptoms have improved. bailey
[2018-09-26 07:12] VITALS: O2SAT 100
[2018-09-26 07:13] VITALS: BP 126/76; TEMP 97.8
== END 2018-09-26 07:01 | disposition home or self-care (01) ==
LOC: ER 23:03
PROC: 0JQ80ZZ Repair Abdomen Subcutaneous Tissue and Fascia, Open Approach (ICD-10-PCS; principal; 2018-09-26)
DX: S31.112A Laceration without foreign body of abdominal wall, epigastric region without penetration into peritoneal cavity, initial encounter (principal); F33.9 Major depressive disorder, recurrent, unspecified; F10.129 Alcohol abuse with intoxication, unspecified; E87.6 Hypokalemia; Z23 Encounter for immunization; F41.9 Anxiety disorder, unspecified
CPT/HCPCS: 36415; 80048; 80076; 80307; 80320; 80329; 81003; 85025; 85610; 85730; 90714; 93005; 96365; 96375; 99285; J2405; J3411; J7030

== ENCOUNTER 2019-02-12 20:18 | Emergency (ER) | payer SELFPAY ==
--- NOTE | 2019-02-12 21:25 | EDPHYS ---
Physician Documentation [facility] Name: Minesh Hanley Age: 38 yrs Sex: Female : 1980 Arrival Date: 02/12/2019 Time: 20:29 Bed Ultrasound Private MD: Akiko Fraser H ED Physician Dick Connors HPI: 02/12 21:15 This 38 yrs old Female presents to ER via Ambulatory with complaints of Arm jmm Pain. 21:15 The patient or guardian complains of pain, that is acute. Onset: The symptoms/episode jmm began/occurred today. Treatment prior to arrival includes: no previous treatment. Modifying factors: The symptoms are alleviated by nothing. the symptoms are aggravated by movement. Associated signs and symptoms: Pertinent negatives: erythema, fever. Patient complaints of left upper arm pain beginning earlier today. Denies injury. Denies fever. . 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 - Social history:: Smoking status: Patient/guardian denies using tobacco. - Ebola Screening: : Patient negative for fever greater than or equal to 101.5 degrees Fahrenheit, and additional compatible Ebola Virus Disease symptoms Patient denies exposure to infectious person Patient denies travel to an Ebola-affected area in the 21 days before illness onset. ROS: 21:15 Constitutional: Negative for fever, chills, and weight loss, Cardiovascular: Negative jmm for chest pain, palpitations, and edema, Respiratory: Negative for shortness of breath, cough, wheezing, and pleuritic chest pain. 21:15 MS/extremity: Positive for pain. 21:15 All other systems are negative. Exam: 21:15 Constitutional: This is a well developed, well nourished patient who is awake, alert, jmm and in no acute distress. Head/Face: atraumatic. Eyes: EOMI, no conjunctival erythema appreciated ENT: Moist Mucus Membranes Neck: Trachea midline, Supple Chest/axilla: Normal chest wall appearance and motion. Cardiovascular: Regular rate and rhythm. No edema appreciated Respiratory: Normal respirations, no respiratory distress appreciated Abdomen/GI: Non distended, soft 21:15 Musculoskeletal/extremity: pain elicited on palpation of the left forearm, no erythema or induration appreciated, compartments are soft, NVI. 21:15 Skin: Appearance: Color: normal in color. 21:15 Neuro: Orientation: is normal, Mentation: is normal, Memory: is normal. 21:15 Psych: Behavior/mood is pleasant, cooperative. Vital Signs: 20:30 BP 113 / 78; Pulse 89; Resp 18; Temp 98.1(O); Pulse Ox 99% on R/A; Weight 92.99 kg (R); fc Height 5 ft. 6 in. (167.64 cm) (R); Pain 8/10; 21:33 BP 119 / 50; Pulse 75; Resp 17; Pulse Ox 99% on R/A; rr5 20:30 Body Mass Index 33.09 (92.99 kg, 167.64 cm) fc MDM: 20:40 Patient medically screened. [facility] 21:17 Data reviewed: vital signs, nurses notes. Counseling: I had a detailed discussion with katie the patient and/or guardian regarding: the historical points, exam findings, and any diagnostic results supporting the discharge/admit diagnosis, radiology results, the need for outpatient follow up, to return to the emergency department if symptoms worsen or persist or if there are any questions or concerns that arise at home. ED course: US negative. Pain appear most likely musculoskeletal. Patient advised to closely follow up with PCP or return to the ED if she develops fever, redness, or increased swelling to the area. Patient understood and agrees with the plan of care. . 02/12 20:43 Order name: US Extremity Venous Unilateral Ltd [facility] Administered Medications: No medications were administered Disposition: 02/13 04:37 Co-signature as Attending Physician, Dick Connors MD I agree with the assessment and tw4 plan of care. Disposition: 02/12/19 21:23 Discharged to Home. Impression: Pain in forearm. - Condition is Stable. - Discharge Instructions: Muscle Pain, Adult. - Prescriptions for orphenadrine citrate 100 mg Oral Tablet Sustained Release - take 1 tablet by ORAL route 2 times per day As needed; 20 tablet. - Medication Reconciliation Form, Thank You Letter, Antibiotic Education, Prescription Opioid Use form. - Follow up: Private Physician; When: 2 - 3 days; Reason: Recheck today's complaints, Continuance of care, Re-evaluation by your physician. Signatures: Dispatcher [employer] EDMS Devin Julio PA PA jmm Chretien, Felicia, RN RN Dick Connors MD MD tw4 Skip Hurtado RN RN rr5 Corrections: (The following items were deleted from the chart) 02/12 21:36 21:23 02/12/2019 21:23 Discharged to Home. Impression: Pain in forearm. Condition is rr5 Stable. Forms are Medication Reconciliation Form, Thank You Letter, Antibiotic Education, Prescription Opioid Use. Follow up: Private Physician; When: 2 - 3 days; Reason: Recheck today's complaints, Continuance of care, Re-evaluation by your physician. katie
--- NOTE | 2019-02-12 21:25 | ER ---
Nurse's Notes [facility] Name: Minesh Hanley Age: 38 yrs Sex: Female : 1980 Arrival Date: 02/12/2019 Time: 20:29 Bed Ultrasound Private MD: Akiko Fraser H Diagnosis: Pain in forearm Presentation: 02/12 20:30 Presenting complaint: Patient states: she was just sitting around and started to have fc left arm pain. States that she has a knot to inner left forearm. Also arm is weak. This is causing her to be very anxious. Positive ROM. Transition of care: patient was not received from another setting of care. Onset of symptoms was February 12, 2019 at 17:00. Risk Assessment: Do you want to hurt yourself or someone else? Patient reports no desire to harm self or others. Initial Sepsis Screen: Does the patient meet any 2 criteria? No. Patient's initial sepsis screen is negative. Does the patient have a suspected source of infection? No. Patient's initial sepsis screen is negative. Care prior to arrival: None. 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 - Social history:: Smoking status: Patient/guardian denies using tobacco. - Ebola Screening: : Patient negative for fever greater than or equal to 101.5 degrees Fahrenheit, and additional compatible Ebola Virus Disease symptoms Patient denies exposure to infectious person Patient denies travel to an Ebola-affected area in the 21 days before illness onset. Screenin:39 Abuse screen: Denies threats or abuse. Denies injuries from another. Nutritional rr5 screening: No deficits noted. Tuberculosis screening: No symptoms or risk factors identified. Fall Risk None identified. Total Nye Fall Scale indicates No Risk (0-24 pts). Assessment: 20:35 General: Appears in no apparent distress. uncomfortable, Behavior is calm, cooperative, rr5 appropriate for age. Pain: Complains of pain in left arm Pain does not radiate. Pain currently is 8 out of 10 on a pain scale. Quality of pain is described as aching, Pain began suddenly, Is intermittent. Neuro: Level of Consciousness is awake, alert, obeys commands, Oriented to person, place, time, situation, Appropriate for age. Cardiovascular: Capillary refill < 3 seconds Patient's skin is warm and dry. Respiratory: Airway is patent Respiratory effort is even, unlabored, Respiratory pattern is regular, symmetrical. GI: No signs and/or symptoms were reported involving the gastrointestinal system. : No signs and/or symptoms were reported regarding the genitourinary system. EENT: No signs and/or symptoms were reported regarding the EENT system. Derm: Skin is intact, Skin temperature is warm. Musculoskeletal: Capillary refill < 3 seconds, Range of motion: limited in left shoulder and left elbow Reports pain in left arm. 21:30 Reassessment: Patient appears in no apparent distress at this time. Patient is alert, rr5 oriented x 3, equal unlabored respirations, skin warm/dry/pink. discharge instruction given and explained to peer educator without complaints made. Vital Signs: 20:30 BP 113 / 78; Pulse 89; Resp 18; Temp 98.1(O); Pulse Ox 99% on R/A; Weight 92.99 kg (R); fc Height 5 ft. 6 in. (167.64 cm) (R); Pain 8/10; 21:33 BP 119 / 50; Pulse 75; Resp 17; Pulse Ox 99% on R/A; rr5 20:30 Body Mass Index 33.09 (92.99 kg, 167.64 cm) ED Course: 20:29 Patient arrived in ED. es 20:30 Arm band placed on Patient placed in an exam room, on a stretcher. fc 20:34 Akiko Fraser DO is Private Physician. es 20:38 Devin Julio PA is PHCP. jmm 20:38 Skip Hurtado, RN is Primary Nurse. rr5 20:39 Patient has correct armband on for positive identification. Bed in low position. Call rr5 light in reach. Pulse ox on. NIBP on. 20:40 Triage completed. fc 21:19 US Extremity Venous Unilateral Ltd In Process Unspecified. EDMS 21:25 Dick Connors MD is Attending Physician. [facility] 21:35 No provider procedures requiring assistance completed. Patient did not have IV access rr5 during this emergency room visit. Administered Medications: No medications were administered Outcome: 21:23 Discharge ordered by . jm 21:35 Discharged to home ambulatory. rr5 21:35 Discharge instructions given to patient, Instructed on discharge instructions, follow up and referral plans. medication usage, Demonstrated understanding of instructions, follow-up care, medications, Prescriptions given X 1. 21:35 Condition: stable rr5 21:36 Patient left the ED. rr5 Signatures: Dispatcher [employer] EDMS Devin Julio PA PA jmm Salyer, Edna es Chretien, Felicia, RN RN Skip Hurtado RN RN rr5
--- NOTE | 2019-02-12 21:57 | RAD REPORT ---
EXAM DESCRIPTION: US - Extremity Venous Uni Ltd - 02/12/2019 9:17 pm CLINICAL HISTORY: swelling, pain Arm pain and swelling COMPARISON: <Comparisons> FINDINGS: Left upper extremity venous system was interrogated with Doppler technique. Normal flow, c ompressibility and augmentation was noted. There is no DVT present. IMPRESSION: No evidence of left upper extremity deep venous thrombosis.
[2019-02-12 22:18] VITALS: TEMP 98.1; O2SAT 99
[2019-02-12 22:19] VITALS: BP 119/50
== END 2019-02-12 21:36 | disposition home or self-care (01) ==
LOC: ER 20:18
DX: M79.632 Pain in left forearm (principal); F32.9 Major depressive disorder, single episode, unspecified; F41.9 Anxiety disorder, unspecified
CPT/HCPCS: 93971; 99283

== ENCOUNTER 2019-12-19 21:39 | Emergency (ER) | payer SELFPAY ==
[2019-12-19 23:19] LABS: Absolute Lymphocytes (CBC) 1.6 K/uL (0.7-4.9); Basophils % 0.8 % (0-1.3); Hematocrit 40.7 % (36.0-45.0); MPV 10.1 fL (7.6-11.3); RBC Red Blood Cell Count 4.34 M/uL (3.86-4.86)
[2019-12-19 23:32] LABS: Protime INR 1.08
[2019-12-20 00:11] LABS: ALT/SGPT 21 U/L (12-78); AST/SGOT 16 U/L (15-37); Albumin 3.5 g/dL (3.4-5.0); Alkaline Phosphatase 47 U/L (45-117); BUN Blood Urea Nitrogen 10 mg/dL (7-18); Bicarbonate 26 mmol/L (21-32); Bilirubin Direct 0.2 mg/dL (0-0.2); Bilirubin Total 0.7 mg/dL (0.2-1.0); Glucose Level 100 mg/dL (74-106); Magnesium 1.9 mg/dL (1.8-2.4); NT PRO-BNP 13 pg/mL (<125); Potassium 3.9 mmol/L (3.5-5.1); Protein, Total 6.8 g/dL (6.4-8.2); Sodium Level 140 mmol/L (136-145); Troponin (Emerg Dept Use Only) < 0.02 ng/mL (0.0-0.045)
[2019-12-20 00:24] LABS: Urine Blood NEGATIVE (NEG); Urine Glucose NEGATIVE (NEG); Urine Protein NEGATIVE (NEG); Urine Specific Gravity 1.015 (1.005-1.030); Urine pH 5.5 (5.0-7.0)
--- NOTE | 2019-12-20 00:30 | ER ---
Nurse's Notes [facility] Name: Minesh Hanley Age: 39 yrs Sex: Female : 1980 Arrival Date: 12/19/2019 Time: 21:41 Bed 6 Private MD: Diagnosis: Chest pain, unspecified Presentation: 12/18 22:32 Chief complaint: Patient states: "I've had Chest pain on and off all day, it started vc Friday while I was moving stuff, so I figured it was from that but then it kept happening, I have felt dizzy, nauseous, and very sleepy for about a month.". Coronavirus screen: Proceed with normal triage. Patient denies a cough. Patient denies shortness of breath or difficulty breathing. Patient denies measured and/or subjective temperature greater than 100.4F prior to today's visit. Patient denies travel on a cruise ship or to a country [facility] currently lists as an affected area. Patient denies contact with known and/or suspected case of COVID-19. Ebola Screen: No symptoms or risks identified at this time. Onset of symptoms was December 16, 2019. 22:32 Method Of Arrival: Ambulatory vc 22:32 Acuity: CHARLEEN 3 vc 22:47 Initial Sepsis Screen: Does the patient meet any 2 criteria? No. Patient's initial vc sepsis screen is negative. Does the patient have a suspected source of infection? No. Patient's initial sepsis screen is negative. Risk Assessment: Do you want to hurt yourself or someone else? Patient reports no desire to harm self or others. 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 - Social history:: Smoking status: Patient denies any tobacco usage or history of. Screenin:30 Abuse screen: Denies threats or abuse. Nutritional screening: No deficits noted. vc Tuberculosis screening: No symptoms or risk factors identified. Fall Risk None identified. Assessment: 22:30 General: Appears in no apparent distress. comfortable, Behavior is calm, cooperative, vc appropriate for age. Pain: Complains of pain in anterior aspect of left upper chest Pain radiates to left arm and left lateral aspect of neck Pain currently is 3 out of 10 on a pain scale. at worst was 6 out of 10 on a pain scale. Quality of pain is described as sharp, stabbing, Pain began suddenly, Is intermittent, Alleviated by rest, Aggravated by increased activity, Also complains of nausea. Neuro: Level of Consciousness is awake, alert, obeys commands, Oriented to person, place, time. Cardiovascular: Reports chest pain, fatigue, nausea, Capillary refill < 3 seconds Patient's skin is warm and dry. Rhythm is sinus rhythm. Respiratory: Airway is patent Respiratory effort is even, unlabored, Respiratory pattern is regular, symmetrical. GI: No signs and/or symptoms were reported involving the gastrointestinal system. : No signs and/or symptoms were reported regarding the genitourinary system. Derm: Skin is intact, is healthy with good turgor, Skin temperature is warm. Musculoskeletal: Circulation, motion, and sensation intact. Range of motion: intact in all extremities. 23:21 Reassessment: Patient appears in no apparent distress at this time. Patient and/or vc family updated on plan of care and expected duration. Pain level reassessed. Patient is alert, oriented x 3, equal unlabored respirations, skin warm/dry/pink. 12/19 00:20 Reassessment: No changes from previously documented assessment. Patient and/or family vc updated on plan of care and expected duration. Pain level reassessed. Patient is alert, oriented x 3, equal unlabored respirations, skin warm/dry/pink. Patient states symptoms have improved. Vital Signs: 12/18 22:47 BP 112 / 82; Pulse 85; Resp 17; Temp 97.7; Pulse Ox 99% on R/A; Weight 90.72 kg; Height vc 5 ft. 6 in. (167.64 cm); Pain 3/10; 23:00 BP 116 / 79; Pulse 78; Resp 12; Pulse Ox 97% on R/A; vc 12/19 00:00 BP 102 / 66; Pulse 80; Resp 18; Pulse Ox 100% ; vc 12/18 22:47 Body Mass Index 32.28 (90.72 kg, 167.64 cm) vc ED Course: 12/18 21:41 Patient arrived in ED. ag3 22:25 [place] Parham NP is PHCP. pm1 22:25 Dixon Donald MD is Attending Physician. pm1 22:30 Arm band placed on right wrist. EKG completed in triage. Results shown to MD. vc 22:30 Patient has correct armband on for positive identification. Placed in gown. Bed in low vc position. Call light in reach. Side rails up X 1. Adult w/ patient. desk monitor on. Pulse ox on. NIBP on. 22:31 No Collazo, NAVEEN is Primary Nurse. vc 22:35 Triage completed. vc 22:50 XRAY Chest (1 view) In Process Unspecified. EDMS 23:00 Inserted saline lock: 20 gauge in right antecubital area, using aseptic technique. vc Blood collected. Patient maintains SpO2 saturation greater than 95% on room air. 12/19 00:51 No provider procedures requiring assistance completed. IV discontinued, intact, vc bleeding controlled, No redness/swelling at site. Pressure dressing applied. Administered Medications: No medications were administered Outcome: 00:29 Discharge ordered by . pm1 00:51 Discharged to home ambulatory, with significant other. vc 00:51 Condition: good 00:51 Condition: good 00:51 Discharge instructions given to patient, Instructed on discharge instructions, follow up and referral plans. medication usage, Demonstrated understanding of instructions, follow-up care, medications, Prescriptions given X 1. 00:57 Patient left the ED. vc Signatures: Dispatcher [employer] [facility] Berlin Parham NP PATIENT INTAKE REPRESENTATIVE pm1 Elif Hutchinson ag3 No Collazo, RN RN vc
--- NOTE | 2019-12-20 00:30 | EDPHYS ---
Physician Documentation [facility] Name: Minesh Hanley Age: 39 yrs Sex: Female : 1980 Arrival Date: 12/19/2019 Time: 21:41 Bed 6 Private MD: ED Physician Dixon Donald HPI: 12/18 22:30 This 39 yrs old Female presents to ER via Ambulatory with complaints of Chest pm1 Pain. 22:30 The patient or guardian reports chest pain that is located primarily in the anterior pm1 aspect of left upper chest. The pain does not radiate. Associated signs and symptoms: Pertinent positives: dizziness, fatigue for 1 month, Pertinent negatives: abdominal pain, cough, nausea, shortness of breath, vomiting. The chest pain is described as sharp. Duration: The patient or guardian reports multiple episodes, the episodes last approximately 10 minute(s). Modifying factors: The symptoms are alleviated by nothing. the symptoms are aggravated by deep breath, movement. Severity of pain: in the emergency department the pain has resolved. The patient has not experienced similar symptoms in the past. The patient has not recently seen a physician. Onset after moving. 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 - Social history:: Smoking status: Patient denies any tobacco usage or history of. ROS: 22:50 Neck: Negative for injury, pain, and swelling. pm1 22:50 Respiratory: Negative for shortness of breath, cough, wheezing, and pleuritic chest pain, Abdomen/GI: Negative for abdominal pain, nausea, vomiting, diarrhea, and constipation, Back: Negative for injury and pain, : Negative for injury, bleeding, discharge, and swelling, MS/Extremity: Negative for injury and deformity, Skin: Negative for injury, rash, and discoloration, Neuro: Negative for headache, weakness, numbness, tingling, and seizure. 22:50 Constitutional: Positive for fatigue, Negative for body aches, fever, poor PO intake. 22:50 Cardiovascular: Positive for chest pain, Negative for edema, palpitations. Exam: 22:50 Constitutional: This is a well developed, well nourished patient who is awake, alert, pm1 and in no acute distress. Head/Face: Normocephalic, atraumatic. Neck: Trachea midline, no thyromegaly or masses palpated, and no cervical lymphadenopathy. Supple, full range of motion without nuchal rigidity, or vertebral point tenderness. No Meningismus. 22:50 Abdomen/GI: Soft, non-tender, with normal bowel sounds. No distension or tympany. No guarding or rebound. No evidence of tenderness throughout. Back: No spinal tenderness. No costovertebral tenderness. Full range of motion. Skin: Warm, dry with normal turgor. Normal color with no rashes, no lesions, and no evidence of cellulitis. MS/ Extremity: Pulses equal, no cyanosis. Neurovascular intact. Full, normal range of motion. 22:50 Chest/axilla: Inspection: normal, Palpation: tenderness, that is mild, of the anterior aspect of left upper chest, focal point, that totally reproduces the patient's complaints, reproduced with deep breathing. 22:50 Cardiovascular: Exam negative for acute changes, Rate: normal, Rhythm: regular, Pulses: no pulse deficits are appreciated. 22:50 Respiratory: Exam negative for acute changes, respiratory distress, shortness of breath. 22:50 Neuro: Exam negative for acute changes, Orientation: is normal, Mentation: is normal, Motor: is normal, moves all fours, Sensation: is normal, no obvious gross deficits. Vital Signs: 22:47 BP 112 / 82; Pulse 85; Resp 17; Temp 97.7; Pulse Ox 99% on R/A; Weight 90.72 kg; Height vc 5 ft. 6 in. (167.64 cm); Pain 3/10; 23:00 BP 116 / 79; Pulse 78; Resp 12; Pulse Ox 97% on R/A; vc 12/19 00:00 BP 102 / 66; Pulse 80; Resp 18; Pulse Ox 100% ; vc 12/18 22:47 Body Mass Index 32.28 (90.72 kg, 167.64 cm) vc MDM: 12/18 22:30 Patient medically screened. pm1 12/19 00:28 Data reviewed: vital signs. Data interpreted: Pulse oximetry: on is 97 %. pm1 Interpretation: normal. Counseling: I had a detailed discussion with the patient and/or guardian regarding: the historical points, exam findings, and any diagnostic results supporting the discharge/admit diagnosis, lab results, radiology results, the need for outpatient follow up, a family practitioner, to return to the emergency department if symptoms worsen or persist or if there are any questions or concerns that arise at home. 12/18 22:30 Order name: Basic Metabolic Panel; Complete Time: 00:21 pm12/18 22:30 Order name: CBC with Diff; Complete Time: 23:23 pm12/18 22:30 Order name: LFT's; Complete Time: 00:21 pm12/18 22:30 Order name: Magnesium; Complete Time: 00:21 pm12/18 22:30 Order name: NT PRO-BNP; Complete Time: 00:21 pm12/18 22:30 Order name: PT-INR; Complete Time: 23:41 pm12/18 22:30 Order name: Troponin (emerg Dept Use Only); Complete Time: 00:21 pm12/18 22:30 Order name: XRAY Chest (1 view) pm12/18 22:30 Order name: EKG; Complete Time: 22:32 pm12/18 22:30 Order name: Cardiac monitoring; Complete Time: 23:14 pm12/18 22:30 Order name: EKG - Nurse/Tech; Complete Time: 23:14 pm12/18 22:30 Order name: IV Saline Lock; Complete Time: 23:14 pm12/19 00:12 Order name: Urine Dipstick--Ancillary (enter results); Complete Time: 00:28 mw12/19 00:12 Order name: Urine --Ancillary (enter results); Complete Time: 00:28 mw12/18 22:30 Order name: Labs collected and sent; Complete Time: 23:14 pm12/18 22:30 Order name: O2 Per Protocol; Complete Time: 23:14 pm12/18 22:30 Order name: O2 Sat Monitoring; Complete Time: 23:15 pm12/18 22:30 Order name: Urine Dipstick-Ancillary (obtain specimen); Complete Time: 00:02 pm12/18 22:30 Order name: Urine Test (obtain specimen); Complete Time: 00:02 pm1 Administered Medications: No medications were administered Disposition: 07:37 Co-signature as Attending Physician, Dixon Donald MD I agree with the assessment and [facility] plan of care. Disposition: 12/20/19 00:29 Discharged to Home. Impression: Chest pain, unspecified. - Condition is Stable. - Discharge Instructions: Nonspecific Chest Pain. - Prescriptions for Cyclobenzaprine 10 mg Oral Tablet - take 1 tablet by ORAL route every 8 hours As needed; 30 tablet. - Medication Reconciliation Form, Thank You Letter, Antibiotic Education, Prescription Opioid Use form. - Follow up: Emergency Department; When: As needed; Reason: Worsening of condition. Follow up: Private Physician; When: 2 - 3 days; Reason: Recheck today's complaints, Continuance of care, Re-evaluation by your physician. - Problem is new. - Symptoms have improved. Signatures: Dispatcher [employer] Dixon Robertson MD MD cha Marinas, Patrick, LOW HEEL BUILDER LOW HEEL BUILDER pm1 No Collazo RN RN vc Corrections: (The following items were deleted from the chart) 00:57 00:29 12/20/2019 00:29 Discharged to Home. Impression: Chest pain, unspecified. vc Condition is Stable. Forms are Medication Reconciliation Form, Thank You Letter, Antibiotic Education, Prescription Opioid Use. Follow up: Emergency Department; When: As needed; Reason: Worsening of condition. Follow up: Private Physician; When: 2 - 3 days; Reason: Recheck today's complaints, Continuance of care, Re-evaluation by your physician. Problem is new. Symptoms have improved. pm1
[2019-12-20 01:12] VITALS: TEMP 97.7
[2019-12-20 01:20] VITALS: BP 102/66; O2SAT 100
--- NOTE | 2019-12-20 07:55 | RAD REPORT ---
EXAM DESCRIPTION: Kerline Single View12/19/2019 10:50 pm CLINICAL HISTORY: Chest pain COMPARISON: 2014 FINDINGS: The lungs appear clear of acute infiltrate. The heart is normal size IMPRESSION: No acute abnormalities displayed
== END 2019-12-20 00:57 | disposition home or self-care (01) ==
LOC: ER 21:39
DX: R07.9 Chest pain, unspecified (principal)
CPT/HCPCS: 36415; 71045; 80048; 80076; 81003; 81025; 83735; 83880; 84484; 85025; 85610; 93005; 99285

== ENCOUNTER 2020-05-22 06:58 | Emergency (ER) | payer SELFPAY ==
[2020-05-22] MEDS ORDERED: MORPHINE 2 MG/ML SYR ONE ×2 (07:42→09:19)
[2020-05-22] MEDS ORDERED: FAMOTIDINE 20 MG/2 ML VIAL IV ONE (07:43)
[2020-05-22] MEDS ORDERED: NA CHLORIDE 0.9% 1,000 ML ONE (07:43)
[2020-05-22] MEDS ORDERED: ONDANSETRON 4 MG/2 ML VIAL ONE (07:43)
[2020-05-22 07:55] LABS: ALT/SGPT 17 U/L (12-78); AST/SGOT 16 U/L (15-37); Alkaline Phosphatase 50 U/L (45-117); BUN Blood Urea Nitrogen 4 mg/dL (7-18); Bicarbonate 23 mmol/L (21-32); Bilirubin Direct < 0.1 mg/dL (0-0.2); Bilirubin Total 0.4 mg/dL (0.2-1.0); Glucose Level 116 mg/dL (74-106); Lipase 173 U/L (73-393); Magnesium 1.9 mg/dL (1.8-2.4); NT PRO-BNP 63 pg/mL (<125); Potassium 3.6 mmol/L (3.5-5.1); Protein, Total 5.8 g/dL (6.4-8.2); Sodium Level 144 mmol/L (136-145); Troponin (Emerg Dept Use Only) < 0.02 ng/mL (0.0-0.045)
[2020-05-22 08:06] LABS: Urine Blood TRACE (NEG); Urine Glucose NEGATIVE (NEG); Urine Protein NEGATIVE (NEG); Urine pH 6.5 (5.0-7.0)
[2020-05-22 08:18] LABS: Absolute Lymphocytes (CBC) 0.4 K/uL (0.7-4.9); Basophils % 0.3 % (0-1.3); Hematocrit 34.7 % (36.0-45.0); Lymphocytes % 20.3 % (15.3-44.8); RBC Red Blood Cell Count 3.82 M/uL (3.86-4.86)
[2020-05-22 08:24] LABS: Barbiturates NEGATIVE (NEGATIVE); Benzodiazepines NEGATIVE (NEGATIVE); Cocaine NEGATIVE (NEGATIVE); METHAMPHETAM NEGATIVE (NEGATIVE); Methadone NEGATIVE (NEGATIVE); Opiates NEGATIVE (NEGATIVE); Phencyclidine NEGATIVE (NEGATIVE); THC Cannibis POSITIVE (NEGATIVE)
--- NOTE | 2020-05-22 08:41 | RAD REPORT ---
EXAM DESCRIPTION: CT - Angio Aorta For Dissection - 05/22/2020 8:08 am CLINICAL HISTORY: Chest pain radiating to the back. Chest pain;Dissection;PE COMPARISON: No comparisons TECHNIQUE: CT angiography of the aorta was performed with MIPs. All CT scans are performed using dose optimization technique as appropriate and may include automated exposure control or mA/KV adjustment according to patient size. FINDINGS: A left aortic arch is present with normal branching pattern of the great vessels.No acute aortic finding is seen such as aneurysm, penetrating ulcer or dissection. The celiac axis, SMA, ARMANDO and renal arteries are patent. No gross evidence of pulmonary embolism although contrast opacification is suboptimal. The lungs are clear. The liver demonstrates no focal mass or biliary dilatation.Cholecystectomy clips.The spleen, pancreas , adrenal glands and kidneys are within normal limits for arterial phase imaging. No bowel obstruction, free fluid or abscess.Appendectomy.No pathologic enlarged lymphadenopathy ident ified.Several mildly prominent lymph nodes in the small bowel mesenteries seen with mild fat strandin g suggests mild mesenteritis. No fracture or worrisome bone lesion seen. IMPRESSION: No acute aortic finding is demonstrated. Mild mesenteritis is suspected.
--- NOTE | 2020-05-22 08:42 | RAD REPORT ---
EXAM DESCRIPTION: RAD - Chest Single View - 05/22/2020 7:33 am CLINICAL HISTORY: CHEST PAIN Chest pain. COMPARISON: Chest Single View dated 12/19/2019; CHEST SINGLE VIEW dated 03/11/2015; CHEST PA AND LAT 2 VIEW dated 01/23/2014; CHEST SINGLE VIEW dated 10/01/2012 FINDINGS: Portable technique limits examination quality. The lungs are grossly clear. The heart is normal in size. No displaced fractures. IMPRESSION: No acute intrathoracic process suspected.
[2020-05-22] MEDS ORDERED: CEFTRIAXONE/SWI 1gm 1 GM/10 ML SYR ONE (09:19)
--- NOTE | 2020-05-22 11:09 | RAD REPORT ---
EXAM DESCRIPTION: US - Extrem Venous W Compress Mauri - 05/22/2020 10:51 am CLINICAL HISTORY: chest pain ,elevated ddimer Bilateral leg edema and swelling. COMPARISON: Extremity Venous Uni Ltd dated 02/12/2019 TECHNIQUE: Real-time sonographic interrogation of the left and right lower extremity deep venous sys tems was performed. FINDINGS: Normal compressibility, flow augmentation, phasic flow and spontaneous flow is identified in both the left and right lower extremity deep venous systems. IMPRESSION: No sonographic evidence of left or right lower extremity deep venous thrombosis.
--- NOTE | 2020-05-22 11:20 | RAD REPORT ---
EXAM DESCRIPTION: US - UPPER EXTREMITY VENOUS UNILATE - 05/22/2020 10:58 am CLINICAL HISTORY: r/o dvt Left upper extremity swelling. COMPARISON: Extrem Venous W Compress Mauri dated 05/22/2020 FINDINGS: Left upper extremity venous system was interrogated with Doppler technique. Normal flow, c ompressibility and augmentation was noted. There is no DVT present. IMPRESSION: No evidence of left upper extremity deep venous thrombosis.
--- NOTE | 2020-05-22 11:56 | EDPHYS ---
Physician Documentation [facility] Name: Minesh Hanley Age: 39 yrs Sex: Female : 1980 Arrival Date: 05/22/2020 Time: 07:00 Bed 18 Private MD: ED Physician Dixon Donald HPI: 05/22 07:19 This 39 yrs old Female presents to ER via EMS with complaints of Chest Pain. [facility] 07:19 The patient or guardian reports chest pain that is located primarily in the anterior [facility] chest wall, bilaterally. The pain radiates to Associated signs and symptoms: Pertinent positives: nausea. The chest pain is described as sharp. Duration: The patient or guardian reports a single episode, that is still ongoing. Modifying factors: The symptoms are alleviated by nothing. the symptoms are aggravated by nothing. Severity of pain: At its worst the pain was moderate in the emergency department the pain is unchanged. Historical: - Allergies: 08:49 No Known Allergies; ph - Home Meds: 07:07 Cymbalta 60 mg Oral cpDR 1 cap once daily [Active]; Klonopin 2 mg Oral tab 1 tab 2 ph times per day [Active]; - PMHx: 07:07 Anxiety; Depression; Ovarian cyst; psy cutter-depression; PTSD; ph - PSHx: 07:07 Cholecystectomy; Appendectomy; ph - Immunization history:: Adult Immunizations unknown. - Family history:: not pertinent. - Social history:: Smoking status: Patient denies any tobacco usage or history of. ROS: 07:19 Constitutional: Negative for fever, chills, and weight loss, Eyes: Negative for injury, bailey pain, redness, and discharge, ENT: Negative for injury, pain, and discharge, Neck: Negative for injury, pain, and swelling, Respiratory: Negative for shortness of breath, cough, wheezing, and pleuritic chest pain, Abdomen/GI: Negative for abdominal pain, nausea, vomiting, diarrhea, and constipation, Back: Negative for injury and pain, : Negative for injury, bleeding, discharge, and swelling, MS/Extremity: Negative for injury and deformity, Skin: Negative for injury, rash, and discoloration, Neuro: Negative for headache, weakness, numbness, tingling, and seizure. 07:19 Cardiovascular: Positive for chest pain. Exam: 07:19 Constitutional: This is a well developed, well nourished patient who is awake, alert, bailey and in no acute distress. Head/Face: Normocephalic, atraumatic. Eyes: Pupils equal round and reactive to light, extra-ocular motions intact. Lids and lashes normal. Conjunctiva and sclera are non-icteric and not injected. Cornea within normal limits. Periorbital areas with no swelling, redness, or edema. ENT: Nares patent. No nasal discharge, no septal abnormalities noted. Tympanic membranes are normal and external auditory canals are clear. Oropharynx with no redness, swelling, or masses, exudates, or evidence of obstruction, uvula midline. Mucous membranes moist. Neck: Trachea midline, no thyromegaly or masses palpated, and no cervical lymphadenopathy. Supple, full range of motion without nuchal rigidity, or vertebral point tenderness. No Meningismus. Chest/axilla: Normal chest wall appearance and motion. Nontender with no deformity. No lesions are appreciated. Cardiovascular: Regular rate and rhythm with a normal S1 and S2. No gallops, murmurs, or rubs. Normal PMI, no JVD. No pulse deficits. Respiratory: Lungs have equal breath sounds bilaterally, clear to auscultation and percussion. No rales, rhonchi or wheezes noted. No increased work of breathing, no retractions or nasal flaring. Abdomen/GI: Soft, non-tender, with normal bowel sounds. No distension or tympany. No guarding or rebound. No evidence of tenderness throughout. Back: No spinal tenderness. No costovertebral tenderness. Full range of motion. Skin: Warm, dry with normal turgor. Normal color with no rashes, no lesions, and no evidence of cellulitis. MS/ Extremity: Pulses equal, no cyanosis. Neurovascular intact. Full, normal range of motion. Neuro: Awake and alert, GCS 15, oriented to person, place, time, and situation. Cranial nerves II-XII grossly intact. Motor strength 5/5 in all extremities. Sensory grossly intact. Cerebellar exam normal. Normal gait. Psych: Awake, alert, with orientation to person, place and time. Behavior, mood, and affect are within normal limits. 07:19 Musculoskeletal/extremity: ROM: no acute changes, intact in all extremities, Circulation is intact in all extremities. Pulses: Sensation intact. Compartment Syndrome exam of affected extremity: is normal. DVT Exam: No signs of deep vein thrombosis. no pain, no swelling, no tenderness, negative Homans' sign noted on exam, no appreciated bluish discoloration, no erythema, no increased warmth. 07:27 ECG was reviewed by the Attending Physician. bailey Vital Signs: 07:02 BP 119 / 69; Pulse 90; Resp 18; Temp 98.4; Pulse Ox 100% on R/A; Weight 81.65 kg; ph Height 5 ft. 6 in. (167.64 cm); Pain 8/10; 08:49 BP 115 / 78; Pulse 72; Resp 16; Pulse Ox 100% on R/A; ph 10:00 BP 117 / 69; Pulse 77; Resp 18; Pulse Ox 100% on R/A; ph 11:00 ph 11:45 BP 115 / 70; Pulse 75; Resp 16; Temp 97.8; Pulse Ox 99% on R/A; ph 07:02 Body Mass Index 29.05 (81.65 kg, 167.64 cm) ph 11:00 pt in US ph MDM: 07:07 Patient medically screened. bailey 07:19 Differential diagnosis: abnormal EKG, coronary artery disease chest wall pain, bailey cholecystitis, Cholelithiasis pancreatitis, pleurisy, stable angina, unstable angina. HEART Score: History: Slightly Suspicious (0), ECG: Normal (0), Age: < or = 45 years (0), Risk Factors: No Risk Factors Known (0), Troponin: < or = 1 x Normal Limit (0). The patient's deep vein thrombosis risk score was calculated as follows: Total Score: 0. This patient was found to be at low risk for a deep vein thrombosis by using the Well's assessment criteria. The patient's pulmonary embolism risk score was calculated as follows: Total Score: 0-2 points. This patient was found to be at low risk for a pulmonary embolism by using the Well's assessment criteria. [place] Risk Score: TOTAL SCORE = 0. Data reviewed: vital signs, nurses notes, lab test result(s), EKG, radiologic studies, CT scan, plain films. Data interpreted: frame expander: rate is 90 beats/min, rhythm is regular. Test interpretation: by ED physician or midlevel provider: ECG, plain radiologic studies. Counseling: I had a detailed discussion with the patient and/or guardian regarding: the historical points, exam findings, and any diagnostic results supporting the discharge/admit diagnosis, the presence of at least one elevated blood pressure reading (>120/80) during this emergency department visit, lab results, radiology results, the need for outpatient follow up. 05/22 07:18 Order name: Basic Metabolic Panel; Complete Time: 09:06 bailey 05/22 07:18 Order name: CBC with Diff; Complete Time: 09:06 bailey 05/22 07:18 Order name: LFT's; Complete Time: 09:06 bailey 05/22 07:18 Order name: Magnesium; Complete Time: 09:06 bailey 05/22 07:18 Order name: NT PRO-BNP; Complete Time: 09:06 bailey 05/22 07:18 Order name: Troponin (emerg Dept Use Only); Complete Time: 09:06 bailey 05/22 07:18 Order name: XRAY Chest (1 view); Complete Time: 09:06 bailey 05/22 07:18 Order name: Lipase; Complete Time: 09:06 bailey 05/22 07:18 Order name: D-Dimer; Complete Time: 09:06 bailey 05/22 07:18 Order name: UDS; Complete Time: 09:06 bailey 05/22 08:00 Order name: Urine Dipstick--Ancillary (enter results); Complete Time: 09:06 bd 05/22 08:55 Order name: Urine Culture ph 05/22 09:58 Order name: Troponin (emerg Dept Use Only): 10 am; Complete Time: 11:55 bailey 05/22 11:46 Order name: CREATININE WHOLE BLOOD; Complete Time: 11:52 EDMS 05/22 07:18 Order name: EKG; Complete Time: 07:20 bailey 05/22 07:18 Order name: Cardiac monitoring; Complete Time: 07:26 bailey 05/22 07:18 Order name: EKG - Nurse/Tech; Complete Time: 07:26 bailey 05/22 07:24 Order name: CT Aorta for Dissection; Complete Time: 09:06 bailey 05/22 09:00 Order name: Extremity Venous W Compression Bilateral US: lower ext; Complete Time: 11:30bd 05/22 09:56 Order name: UPPER EXTREMITY VENOUS UNILATE; Complete Time: 11:30 EDMS 05/22 10:42 Order name: EKG; Complete Time: 10:43 [facility] 05/22 07:18 Order name: IV Saline Lock; Complete Time: : [facility] 05/22 07:18 Order name: Labs collected and sent; Complete Time: : [facility] 05/22 07:18 Order name: O2 Per Protocol; Complete Time: 07: [facility] 05/22 07:18 Order name: O2 Sat Monitoring; Complete Time: 07: [facility] 05/22 07:18 Order name: Urine Dipstick-Ancillary (obtain specimen); Complete Time: 08: [facility] 05/22 07:18 Order name: Urine Test (obtain specimen); Complete Time: 08: [facility] 05/22 10:42 Order name: EKG - Nurse/Tech; Complete Time: 11:14 [facility] EC:27 Rate is 87 beats/min. Rhythm is regular. QRS [place] is Normal. [place] interval is normal. QRS bailey interval is normal. QT interval is prolonged at 474 msec. No Q waves. T waves are Normal. No ST changes noted. Clinical impression: NSR w/ Non-specific ST/T Changes and No evidence of ischemia. Interpreted by me. Reviewed by me. Administered Medications: 07:35 Drug: Pepcid 20 mg Route: IVP; Site: right wrist; ph 08:00 Follow up: Response: No adverse reaction ph 07:35 Drug: NS 0.9% 500 ml Route: IV; Rate: bolus; Site: right wrist; ph 08:45 Follow up: Response: No adverse reaction; IV Status: Completed infusion; IV Intake: ph 500ml 07:50 Drug: morphine 2 mg Route: IVP; Site: right wrist; ph 08:45 Drug: NS 0.9% 1000 ml Route: IV; Rate: 125 ml/hr; Site: right wrist; ph 09:28 Drug: Zofran (Ondansetron) 4 mg Route: IVP; Site: right wrist; ph 09:45 Follow up: Response: No adverse reaction; Nausea is decreased ph 09:30 Drug: morphine 2 mg Route: IVP; Site: right wrist; ph 10:00 Follow up: Response: No adverse reaction; Pain is decreased; RASS: Alert and Calm (0) ph 09:30 Drug: Rocephin 1 grams Route: IV; Rate: calculated rate; Site: right wrist; ph 09:45 Follow up: Response: No adverse reaction; IV Status: Completed infusion ph 10:59 Not Given (Given by EMS): Aspirin Chewable Tablet 324 mg PO once; 81 mg tablets x 4 ph 19:38 Not Given (Patient Refused): ToPROL XL 25 mg PO once ph Disposition: 05/22/20 11:55 Discharged to Home. Impression: Chest pain, unspecified, Urinary tract infection, site not specified. - Condition is Stable. - Discharge Instructions: Nonspecific Chest Pain, Dysuria, Urinary Tract Infection, Adult, Aspirin and Your Heart. - Prescriptions for Pepcid 20 mg Oral Tablet - take 1 tablet by ORAL route every 12 hours for 10 days; 20 tablet. Bentyl 20 mg Oral Tablet - take 1 tablet by ORAL route every 6 hours As needed; 20 tablet. Cipro 250 mg Oral Tablet - take 1 tablet by ORAL route every 12 hours; 14 tablet. Toprol XL 25 mg Oral Tablet - take 1 tablet by ORAL route once daily; 20 tablet. - Medication Reconciliation Form, Thank You Letter, Antibiotic Education, Prescription Opioid Use form. - Follow up: Private Physician; When: 2 - 3 days; Reason: Recheck today's complaints, Continuance of care, Re-evaluation by your physician. Follow up: Víctor Putnam; When: 2 - 3 days; Reason: Recheck today's complaints, Re-evaluation by your physician. - Problem is new. - Symptoms have improved. Signatures: Dispatcher [employer] [facility] Dixon Donald MD MD cha Hall, Patricia RN RN ph Corrections: (The following items were deleted from the chart) 09:56 09:52 Extremity Venous Uni Ltd+[email or web address] ordered. [facility] 12:05 11:55 05/22/2020 11:55 Discharged to Home. Impression: Chest pain, unspecified; Urinary ph tract infection, site not specified. Condition is Stable. Discharge Instructions: Nonspecific Chest Pain, Aspirin and Your Heart, Dysuria, Urinary Tract Infection, Adult. Prescriptions for Pepcid 20 mg Oral Tablet - take 1 tablet by ORAL route every 12 hours for 10 days; 20 tablet, Bentyl 20 mg Oral Tablet - take 1 tablet by ORAL route every 6 hours As needed; 20 tablet, Cipro 250 mg Oral Tablet - take 1 tablet by ORAL route every 12 hours; 14 tablet, Toprol XL 25 mg Oral Tablet - take 1 tablet by ORAL route once daily; 20 tablet. and Forms are Medication Reconciliation Form, Thank You Letter, Antibiotic Education, Prescription Opioid Use. Follow up: Private Physician; When: 2 - 3 days; Reason: Recheck today's complaints, Continuance of care, Re-evaluation by your physician. Follow up: Víctor Putnam; When: 2 - 3 days; Reason: Recheck today's complaints, Re-evaluation by your physician. Problem is new. Symptoms have improved. bailey
--- NOTE | 2020-05-22 11:56 | ER ---
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 Coronavirus screen: Client denies travel out of the [place] in the last 14 days. Ebola Screen: No symptoms or risks identified at this time. Initial Sepsis Screen: Does the patient meet any 2 criteria? No. Patient's initial sepsis screen is negative. Does the patient have a suspected source of infection? No. Patient's initial sepsis screen is negative. Risk Assessment: Do you want to hurt yourself or someone else? Patient reports no desire to harm self or others. Onset of symptoms was May 22, 2020. 07:02 Method Of Arrival: EMS: [facility] ph 07:02 Acuity: CHARLEEN 3 ph 07:05 Care prior to arrival: Medication(s) given: ASA, 325 mg, Normal saline infusion, 250 mL ph zofran 4 mg. Historical: - Allergies: 08:49 No Known Allergies; ph - Home Meds: 07:07 Cymbalta 60 mg Oral cpDR 1 cap once daily [Active]; Klonopin 2 mg Oral tab 1 tab 2 ph times per day [Active]; - PMHx: 07:07 Anxiety; Depression; Ovarian cyst; psy cutter-depression; PTSD; ph - PSHx: 07:07 Cholecystectomy; Appendectomy; ph - Immunization history:: Adult Immunizations unknown. - Family history:: not pertinent. - Social history:: Smoking status: Patient denies any tobacco usage or history of. Screenin:02 Abuse screen: Denies threats or abuse. Denies injuries from another. Nutritional ph screening: No deficits noted. Tuberculosis screening: No symptoms or risk factors identified. Fall Risk None identified. Assessment: 07:48 General: Appears in no apparent distress. uncomfortable, Behavior is calm, cooperative, ph appropriate for age, Denies fever, feeling ill. Pain: Complains of pain in mid-sternal chest, L arm, head, and jaw Quality of pain is described as squeezing, Pain began suddenly, 1 hour ago. Neuro: Level of Consciousness is awake, alert, obeys commands, Oriented to person, place, time, situation, Reports headache Denies weakness blurred vision dizziness. Cardiovascular: Reports chest pain, nausea, Denies lightheadedness, vomiting, Capillary refill < 3 seconds in bilateral fingers Patient's skin is warm and dry. Rhythm is sinus rhythm Chest pain quality is sharp, squeezing, is located in substernal area radiates to left arm(s) jaw(s). Respiratory: Airway is patent Respiratory effort is even, unlabored, Respiratory pattern is regular, symmetrical. GI: Reports nausea, Patient currently denies abdominal pain, vomiting. : No signs and/or symptoms were reported regarding the genitourinary system. Derm: Skin is intact, is healthy with good turgor, Skin is pink, warm \T\ dry. Musculoskeletal: Circulation, motion, and sensation intact. Range of motion: intact in all extremities. 08:00 Reassessment: Patient appears in no apparent distress at this time. Patient and/or ph family updated on plan of care and expected duration. Pain level reassessed. Patient is alert, oriented x 3, equal unlabored respirations, skin warm/dry/pink. Pt taken to CT via stretcher. 08:50 Reassessment: Patient appears in no apparent distress at this time. Patient and/or ph family updated on plan of care and expected duration. Pain level reassessed. Patient is alert, oriented x 3, equal unlabored respirations, skin warm/dry/pink. 10:20 Reassessment: Pt in US. ph 11:45 Reassessment: Patient appears in no apparent distress at this time. Patient and/or ph family updated on plan of care and expected duration. Pain level reassessed. Patient is alert, oriented x 3, equal unlabored respirations, skin warm/dry/pink. Patient denies pain at this time. Patient states feeling better. Vital Signs: 07:02 BP 119 / 69; Pulse 90; Resp 18; Temp 98.4; Pulse Ox 100% on R/A; Weight 81.65 kg; ph Height 5 ft. 6 in. (167.64 cm); Pain 8/10; 08:49 BP 115 / 78; Pulse 72; Resp 16; Pulse Ox 100% on R/A; ph 10:00 BP 117 / 69; Pulse 77; Resp 18; Pulse Ox 100% on R/A; ph 11:00 ph 11:45 BP 115 / 70; Pulse 75; Resp 16; Temp 97.8; Pulse Ox 99% on R/A; ph 07:02 Body Mass Index 29.05 (81.65 kg, 167.64 cm) ph 11:00 pt in US ph ED Course: 07:00 Patient arrived in ED. ph 07:01 Kimberley Peña, RN is Primary Nurse. ph 07:05 Triage completed. ph 07:07 Dixon Donald MD is Attending Physician. bailey 07:34 XRAY Chest (1 view) In Process Unspecified. EDMS 07:34 Radiology exam delayed due to test not completed at this time. IV insertion sw attempt and/or patient not having appropriate IV at this time. 07:50 Arm band placed on. ph 07:50 Patient has correct armband on for positive identification. Placed in gown. Bed in low ph position. Call light in reach. Side rails up X 1. ekg monitor tech on. Pulse ox on. NIBP on. Door closed. Noise minimized. Warm blanket given. Head of bed elevated. 07:59 No provider procedures requiring assistance completed. Initial lab(s) drawn, by ky, ph sent to lab. Urine collected: clean catch specimen, EKG done. Maintain EMS IV. Dressing intact. Good blood return noted. Site clean \T\ dry. Gauge \T\ site: 18 R wrist. IV is patent, is intact, with fluids infusing freely, with good blood return, Flushed with 5 ml normal saline. Patient maintains SpO2 saturation greater than 95% on room air. 08:02 UDS Sent. ph 08:08 CT Aorta for Dissection In Process Unspecified. EDMS 10:51 Extremity Venous W Compression Bilateral US: lower ext In Process Unspecified. EDMS 10:51 UPPER EXTREMITY VENOUS UNILATE In Process Unspecified. EDMS 11:55 Víctor Putnam MD is Referral Physician. bailey 12:00 IV discontinued, intact, bleeding controlled, No redness/swelling at site. Pressure ph dressing applied. Administered Medications: 07:35 Drug: Pepcid 20 mg Route: IVP; Site: right wrist; ph 08:00 Follow up: Response: No adverse reaction ph 07:35 Drug: NS 0.9% 500 ml Route: IV; Rate: bolus; Site: right wrist; ph 08:45 Follow up: Response: No adverse reaction; IV Status: Completed infusion; IV Intake: ph 500ml 07:50 Drug: morphine 2 mg Route: IVP; Site: right wrist; ph 08:45 Drug: NS 0.9% 1000 ml Route: IV; Rate: 125 ml/hr; Site: right wrist; ph 09:28 Drug: Zofran (Ondansetron) 4 mg Route: IVP; Site: right wrist; ph 09:45 Follow up: Response: No adverse reaction; Nausea is decreased ph 09:30 Drug: morphine 2 mg Route: IVP; Site: right wrist; ph 10:00 Follow up: Response: No adverse reaction; Pain is decreased; RASS: Alert and Calm (0) ph 09:30 Drug: Rocephin 1 grams Route: IV; Rate: calculated rate; Site: right wrist; ph 09:45 Follow up: Response: No adverse reaction; IV Status: Completed infusion ph 10:59 Not Given (Given by EMS): Aspirin Chewable Tablet 324 mg PO once; 81 mg tablets x 4 ph 19:38 Not Given (Patient Refused): ToPROL XL 25 mg PO once ph Intake: 08:45 IV: 500ml; Total: 500ml. ph Outcome: 11:55 Discharge ordered by . bailey 12:05 Patient left the ED. ph 12:05 Discharged to home ambulatory, with significant other. ph 12:05 Condition: good 12:05 Discharge instructions given to patient, Instructed on discharge instructions, follow up and referral plans. medication usage, Demonstrated understanding of instructions, follow-up care, medications, Prescriptions given X 4. Signatures: Dispatcher [employer] Dixon Tran MD MD cha Hall, Patricia, RN RN Mary Velarde
[2020-05-22 15:10] VITALS: O2SAT 100
[2020-05-22 15:13] VITALS: BP 117/69
[2020-05-22 15:27] VITALS: TEMP 97.8
--- NOTE | 2020-05-23 18:15 | EKG ---
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
== END 2020-05-22 12:05 | disposition home or self-care (01) ==
LOC: ER 06:58
DX: N39.0 Urinary tract infection, site not specified (principal); F41.8 Other specified anxiety disorders
CPT/HCPCS: 36415; 71045; 71275; 74175; 80048; 80076; 80307; 81003; 82565; 83690; 83735; 83880; 84484; 85025; 85379; 87077; 87086; 87088; 87186; 93005; 93970; 93971; 96361; 96374; 96375; 99285; J0696; J2270; J2405; J7030; Q9967

== ENCOUNTER 2020-08-24 01:10 | Emergency (ER) | payer SELFPAY ==
[2020-08-24] MEDS ORDERED: ONDANSETRON 4 MG/2 ML VIAL ONE (02:38)
[2020-08-24] MEDS ORDERED: NA CHLORIDE 0.9% 1,000 ML ONE (02:38)
[2020-08-24] MEDS ORDERED: MORPHINE 4 MG/ML SYR ONE (02:38)
[2020-08-24 02:46] LABS: Urine Blood NEGATIVE (NEG); Urine Glucose NEGATIVE (NEG); Urine Protein NEGATIVE (NEG)
[2020-08-24 02:55] LABS: Absolute Lymphocytes (CBC) 2.1 K/uL (0.7-4.9); Basophils % 0.4 % (0-1.3); Hematocrit 37.3 % (36.0-45.0); Lymphocytes % 36.7 % (15.3-44.8); MPV 9.8 fL (7.6-11.3); RBC Red Blood Cell Count 3.98 M/uL (3.86-4.86)
[2020-08-24 03:07] LABS: ALT/SGPT 18 U/L (12-78); AST/SGOT 16 U/L (15-37); Albumin 3.5 g/dL (3.4-5.0); Alkaline Phosphatase 46 U/L (45-117); BUN Blood Urea Nitrogen 7 mg/dL (7-18); Bicarbonate 27 mmol/L (21-32); Bilirubin Direct 0.1 mg/dL (0-0.2); Bilirubin Total 0.7 mg/dL (0.2-1.0); Glucose Level 89 mg/dL (74-106); Lipase 113 U/L (73-393); Potassium 3.8 mmol/L (3.5-5.1); Protein, Total 6.6 g/dL (6.4-8.2); Sodium Level 141 mmol/L (136-145)
[2020-08-24] MEDS ORDERED: KETOROLAC 30 MG/ML INJ ONE (03:56)
--- NOTE | 2020-08-24 04:15 | ER ---
Nurse's Notes [facility] Name: Minesh Hanley Age: 39 yrs Sex: Female : 1980 Arrival Date: 08/24/2020 Time: 01:15 Bed 5 Private MD: Diagnosis: Low back pain;Spondylolysis, lumbar region Presentation: 08/24 01:42 Chief complaint: Patient states: reports having mid back pain for several day, sg worsening this AM. 01:42 Acuity: CHARLEEN 3 sg 01:42 Coronavirus screen: Client denies travel out of the [place] in the last 14 days. Ebola sg Screen: Patient negative for fever greater than or equal to 101.5 degrees Fahrenheit, and additional compatible Ebola Virus Disease symptoms Patient denies exposure to infectious person. Patient denies travel to an Ebola-affected area in the 21 days before illness onset. No symptoms or risks identified at this time. Initial Sepsis Screen: Does the patient meet any 2 criteria? No. Patient's initial sepsis screen is negative. Does the patient have a suspected source of infection? Yes: Dysuria/Frequency/Urgency/UTI. Risk Assessment: Do you want to hurt yourself or someone else? Patient reports no desire to harm self or others. Onset of symptoms was August 24, 2020. Care prior to arrival: None. Transition of care: patient was not received from another setting of care. 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 - Social history:: Smoking status: Patient denies any tobacco usage or history of. - Family history:: not pertinent. Screenin:42 Abuse screen: Denies threats or abuse. Nutritional screening: No deficits noted. ea Tuberculosis screening: No symptoms or risk factors identified. Fall Risk None identified. Assessment: 02:41 General: Appears uncomfortable, Behavior is appropriate for age. Pain: Complains of ea pain in lumbar area. Neuro: Level of Consciousness is awake, alert, obeys commands, Oriented to person, place, time. Cardiovascular: Patient's skin is warm and dry. Respiratory: Airway is patent Respiratory effort is even, unlabored, Respiratory pattern is regular, symmetrical. Derm: Skin is pink, warm \T\ dry. 03:30 Reassessment: Patient appears in no apparent distress at this time. Patient and/or rr5 family updated on plan of care and expected duration. Pain level reassessed. Patient is alert, oriented x 3, equal unlabored respirations, skin warm/dry/pink. 04:25 Reassessment: Patient appears in no apparent distress at this time. Patient is alert, rr5 oriented x 3, equal unlabored respirations, skin warm/dry/pink. discharge instruction given and explained without complaints made. Vital Signs: 02:42 BP 109 / 71; Pulse 80; Resp 18; Pulse Ox 98% on R/A; ea 03:11 BP 115 / 78; Pulse 54; Resp 18; Pulse Ox 98% on R/A; ea 04:20 BP 123 / 69; Pulse 55; Resp 17; Temp 98; Pulse Ox 99% ; rr5 ED Course: 01:15 Patient arrived in ED. am4 01:23 Arm band placed on. sg 01:31 Dixon Donald MD is Attending Physician. bailey 02:10 Triage completed. sg 02:15 Amanda Meredith, NAVEEN is Primary Nurse. ea 02:41 Inserted saline lock: 20 gauge in right antecubital area, using aseptic technique. ea Blood collected. 02:42 Patient has correct armband on for positive identification. Bed in low position. Call ea light in reach. Side rails up X2. 03:47 CT Stone Protocol In Process Unspecified. EDMS 04:20 No provider procedures requiring assistance completed. IV discontinued, intact, rr5 bleeding controlled, No redness/swelling at site. Pressure dressing applied. Administered Medications: 02:40 Drug: NS 0.9% 1000 ml Route: IV; Rate: 1 bolus; Site: right antecubital; ea 03:40 Follow up: Response: No adverse reaction; IV Status: Completed infusion; IV Intake: rr5 1000ml 02:40 Drug: morphine 2 mg Route: IVP; Site: right antecubital; ea 02:40 Drug: Zofran (Ondansetron) 4 mg Route: IVP; Site: right antecubital; ea 03:52 Follow up: Response: No adverse reaction ea 03:00 Drug: morphine 2 mg Route: IVP; Site: right antecubital; ea 03:52 Follow up: Response: No adverse reaction ea 03:52 Drug: TORadol 30 mg Route: IVP; Site: right antecubital; ea 04:25 Follow up: Response: No adverse reaction rr5 Intake: 03:40 IV: 1000ml; Total: 1000ml. rr5 Outcome: 04:14 Discharge ordered by MD. avalos 04:20 Discharged to home ambulatory. rr5 04:20 Condition: stable 04:20 Discharge instructions given to patient, Instructed on discharge instructions, follow up and referral plans. medication usage, Demonstrated understanding of instructions, follow-up care, medications, Prescriptions given X 2. 04:27 Patient left the ED. rr5 Signatures: Dispatcher [employer] EDMS Sandro Moy RN RN sg Anderson, Corey, MD MD cha Antunez, Elena, RN RN ea Roque, Raymond RN NAVEEN rr5 Emily Link
--- NOTE | 2020-08-24 04:16 | EDPHYS ---
Physician Documentation [facility] Name: Minesh Hanley Age: 39 yrs Sex: Female : 1980 Arrival Date: 08/24/2020 Time: 01:15 Bed 5 Private MD: GREGORIO Physician Dixon Donald HPI: 08/24 02:11 This 39 yrs old Female presents to ER via Ambulatory with complaints of Back bailey Pain. 02:11 The patient presents with pain that is acute, with no known mechanism of injury. The bailey symptoms are located in the lumbar area and left mid back. Onset: The symptoms/episode began/occurred 2 day(s) ago. The pain does not radiate. Associated signs and symptoms: The patient has no apparent associated signs or symptoms. The problem was sustained from unknown cause. Modifying factors: The patient symptoms are alleviated by nothing, the patient symptoms are aggravated by nothing. Severity of symptoms: At their worst the symptoms were mild, moderate, in the emergency department the symptoms are unchanged. The patient has not experienced similar symptoms in the past. 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 - Social history:: Smoking status: Patient denies any tobacco usage or history of. - Family history:: not pertinent. ROS: 02:11 Constitutional: Negative for fever, chills, and weight loss, Eyes: Negative for injury, bailey pain, redness, and discharge, ENT: Negative for injury, pain, and discharge, Neck: Negative for injury, pain, and swelling, Cardiovascular: Negative for chest pain, palpitations, and edema, Respiratory: Negative for shortness of breath, cough, wheezing, and pleuritic chest pain, Abdomen/GI: Negative for abdominal pain, nausea, vomiting, diarrhea, and constipation, : Negative for injury, bleeding, discharge, and swelling, MS/Extremity: Negative for injury and deformity, Skin: Negative for injury, rash, and discoloration, Neuro: Negative for headache, weakness, numbness, tingling, and seizure, Psych: Negative for depression, anxiety, suicide ideation, homicidal ideation, and hallucinations, Allergy/Immunology: Negative for hives, rash, and allergies, Endocrine: Negative for neck swelling, polydipsia, polyuria, polyphagia, and marked weight changes, Hematologic/Lymphatic: Negative for swollen nodes, abnormal bleeding, and unusual bruising. 02:11 Back: Positive for decreased range of motion, pain at rest, pain with movement, flank pain, on the left, of the lumbar area and left mid back. Exam: 02:11 Constitutional: This is a well developed, well nourished patient who is awake, alert, bailey and in no acute distress. Head/Face: Normocephalic, atraumatic. Eyes: Pupils equal round and reactive to light, extra-ocular motions intact. Lids and lashes normal. Conjunctiva and sclera are non-icteric and not injected. Cornea within normal limits. Periorbital areas with no swelling, redness, or edema. ENT: Nares patent. No nasal discharge, no septal abnormalities noted. Tympanic membranes are normal and external auditory canals are clear. Oropharynx with no redness, swelling, or masses, exudates, or evidence of obstruction, uvula midline. Mucous membranes moist. Neck: Trachea midline, no thyromegaly or masses palpated, and no cervical lymphadenopathy. Supple, full range of motion without nuchal rigidity, or vertebral point tenderness. No Meningismus. Chest/axilla: Normal chest wall appearance and motion. Nontender with no deformity. No lesions are appreciated. Cardiovascular: Regular rate and rhythm with a normal S1 and S2. No gallops, murmurs, or rubs. Normal PMI, no JVD. No pulse deficits. Respiratory: Lungs have equal breath sounds bilaterally, clear to auscultation and percussion. No rales, rhonchi or wheezes noted. No increased work of breathing, no retractions or nasal flaring. Abdomen/GI: Soft, non-tender, with normal bowel sounds. No distension or tympany. No guarding or rebound. No evidence of tenderness throughout. Back: No spinal tenderness. No costovertebral tenderness. Full range of motion. Pelvic Exam: Normal external genitalia. Speculum exam with closed cervical os, no discharge or bleeding noted. Bimanual exam with normal adnexa, no adnexal or cervical motion tenderness. Normal uterus. Skin: Warm, dry with normal turgor. Normal color with no rashes, no lesions, and no evidence of cellulitis. MS/ Extremity: Pulses equal, no cyanosis. Neurovascular intact. Full, normal range of motion. Neuro: Awake and alert, GCS 15, oriented to person, place, time, and situation. Cranial nerves II-XII grossly intact. Motor strength 5/5 in all extremities. Sensory grossly intact. Cerebellar exam normal. Normal gait. Psych: Awake, alert, with orientation to person, place and time. Behavior, mood, and affect are within normal limits. 02:11 Back: pain, that is mild, that is moderate, ROM is normal, normal spinal alignment noted, CVA tenderness, is absent, muscle spasm, is not present. Vital Signs: 02:42 BP 109 / 71; Pulse 80; Resp 18; Pulse Ox 98% on R/A; ea 03:11 BP 115 / 78; Pulse 54; Resp 18; Pulse Ox 98% on R/A; ea 04:20 BP 123 / 69; Pulse 55; Resp 17; Temp 98; Pulse Ox 99% ; rr5 MDM: 01:31 Patient medically screened. [facility] 02:13 Differential diagnosis: Fatigue Obesity Pyelonephritis Renal Infarction sprain, bailey Ureterolithiasis vertebral fracture. Data reviewed: vital signs, nurses notes, lab test result(s), radiologic studies, CT scan. Data interpreted: Pulse oximetry: on room air is 95 %. Counseling: I had a detailed discussion with the patient and/or guardian regarding: the historical points, exam findings, and any diagnostic results supporting the discharge/admit diagnosis, lab results, radiology results. 08/24 02:11 Order name: Basic Metabolic Panel [facility] 08/24 02:11 Order name: CBC with Diff; Complete Time: 03:20 [facility] 08/24 02:11 Order name: Hepatic Function; Complete Time: 03:20 [facility] 08/24 02:11 Order name: Lipase; Complete Time: 03:20 bailey 08/24 02:11 Order name: Urine Culture [facility] 08/24 02:11 Order name: Basic Metabolic Panel; Complete Time: 03:20 EDMS 08/24 02:42 Order name: Urine Dipstick--Ancillary (enter results) tt3 08/24 02:42 Order name: Urine --Ancillary (enter results) tt3 08/24 02:42 Order name: Urine Dipstick-Ancillary; Complete Time: 03:20 EDMS 08/24 02:42 Order name: Urine --Ancillary; Complete Time: 03:20 EDMS 08/24 03:21 Order name: CT Stone Protocol [facility] 08/24 02:11 Order name: IV Saline Lock; Complete Time: 02:41 [facility] 08/24 02:11 Order name: Labs collected and sent; Complete Time: 02:41 [facility] 08/24 02:11 Order name: Urine Dipstick-Ancillary (obtain specimen); Complete Time: 02:41 [facility] 08/24 02:11 Order name: Urine Test (obtain specimen); Complete Time: 02:41 [facility] Administered Medications: 02:40 Drug: NS 0.9% 1000 ml Route: IV; Rate: 1 bolus; Site: right antecubital; ea 03:40 Follow up: Response: No adverse reaction; IV Status: Completed infusion; IV Intake: rr5 1000ml 02:40 Drug: morphine 2 mg Route: IVP; Site: right antecubital; ea 02:40 Drug: Zofran (Ondansetron) 4 mg Route: IVP; Site: right antecubital; ea 03:52 Follow up: Response: No adverse reaction ea 03:00 Drug: morphine 2 mg Route: IVP; Site: right antecubital; ea 03:52 Follow up: Response: No adverse reaction ea 03:52 Drug: TORadol 30 mg Route: IVP; Site: right antecubital; ea 04:25 Follow up: Response: No adverse reaction rr5 Disposition: 08/24/20 04:14 Discharged to Home. Impression: Low back pain, Spondylolysis, lumbar region. - Condition is Stable. - Discharge Instructions: Back Pain, Adult, Musculoskeletal Pain, Back Pain, Adult, [id number]. - Prescriptions for Ibuprofen 600 mg Oral Tablet - take 1 tablet by ORAL route every 6 hours As needed take with food; 30 tablet. Cyclobenzaprine 5 mg Oral Tablet - take 1 tablet by ORAL route 3 times per day As needed; 15 tablet. - Medication Reconciliation Form, Thank You Letter, Antibiotic Education, Prescription Opioid Use form. - Follow up: Private Physician; When: 2 - 3 days; Reason: Recheck today's complaints, Continuance of care, Re-evaluation by your physician. - Problem is new. - Symptoms have improved. Signatures: Dispatcher [employer] EDSandro Medley, RN RN Dixon Mayorga MD MD cha Antunez, Elena RN Skip Zendejas ea RN RN rr5 Corrections: (The following items were deleted from the chart) 04:27 04:14 08/24/2020 04:14 Discharged to Home. Impression: Low back pain; Spondylolysis, rr5 lumbar region. Condition is Stable. Discharge Instructions: Back Pain, Adult, Musculoskeletal Pain, Back Pain, Adult, [id number]. Prescriptions for Ibuprofen 600 mg Oral Tablet - take 1 tablet by ORAL route every 6 hours As needed take with food; 30 tablet, Cyclobenzaprine 5 mg Oral Tablet - take 1 tablet by ORAL route 3 times per day As needed; 15 tablet. and Forms are Medication Reconciliation Form, Thank You Letter, Antibiotic Education, Prescription Opioid Use. Follow up: Private Physician; When: 2 - 3 days; Reason: Recheck today's complaints, Continuance of care, Re-evaluation by your physician. Problem is new. Symptoms have improved. bailey
[2020-08-24 06:05] VITALS: BP 123/69; TEMP 98; O2SAT 99
--- NOTE | 2020-08-25 10:05 | RAD REPORT ---
EXAM DESCRIPTION: CT - Stone Protocol - 08/24/2020 6:59 am CLINICAL HISTORY: Mid back and flank pain. TECHNIQUE: Contiguous axial images obtained through the abdomen and pelvis without IV contrast. Ibis nal and sagittal reformatted images were provided. This exam was performed according to our departmental dose-optimization program, which includes autom ated exposure control, adjustment of the mA and/or kV according to patient size and/or use of iterati ve reconstruction technique. COMPARISON: 05/22/2020 FINDINGS: Lung bases: Bibasilar subsegmental atelectasis/pleural parenchymal scar. Right lower lobe calcified granuloma. Liver: Grossly unremarkable Gallbladder and biliary system: Prior cholecystectomy. Intrahepatic and extrahepatic biliary dilatati on. The common duct measures up to 13 mm in maximum diameter. Pancreas: Grossly unremarkable Spleen: Grossly unremarkable Adrenals: Unremarkable Kidneys: No calculi. No hydronephrosis. Bowel: No obstruction. No appreciable mucosal thickening. Appendix: There has been an appendectomy. Urinary bladder: The urinary bladder is distended. Reproductive: Unremarkable as visualized Lymph nodes: Subcentimeter central mesenteric lymph nodes mildly decreased in overall size. Minimal r esidual residual infiltrative changes within the mesentery. No pathologically enlarged lymph nodes. Peritoneum: No focal fluid collection. No free air. Vessels: No abdominal aortic aneurysm. Abdominal wall: Small fat-containing umbilical hernia. Bones: Mild multilevel spondylosis. No acute fracture. IMPRESSION: 1. No renal, ureteral or bladder calculi. No evidence for renal obstruction. 2. Other findings as above. Electronically signed by: Sabas Cash MD 08/24/2020 4:06 AM HYPERBARIC TECH Due to temporary technical issues with the PACS/Fluency reporting system, reports are being signed by the in house radiologist without review as a courtesy to ensure prompt reporting. The interpreting r adiologist is fully responsible for the content of the report.
== END 2020-08-24 04:27 | disposition home or self-care (01) ==
LOC: ER 01:10
DX: M43.06 Spondylolysis, lumbar region (principal)
CPT/HCPCS: 36415; 74176; 76377; 80048; 80076; 81003; 81025; 83690; 85025; 87086; 87088; 96361; 96374; 96375; 99284; J2405; J7030

== ENCOUNTER 2020-11-20 09:06 | Emergency (ER) | payer SELFPAY ==
[2020-11-20] MEDS ORDERED: MORPHINE 4 MG/ML SYR ONE (10:10)
[2020-11-20] MEDS ORDERED: ONDANSETRON 4 MG/2 ML VIAL ONE (10:10)
[2020-11-20] MEDS ORDERED: NA CHLORIDE 0.9% 1,000 ML ONE (10:10)
[2020-11-20 10:13] LABS: Absolute Lymphocytes (CBC) 0.7 K/uL (0.7-4.9); Basophils % 0.2 % (0-1.3); Hematocrit 37.9 % (36.0-45.0); MPV 9.9 fL (7.6-11.3); RBC Red Blood Cell Count 4.02 M/uL (3.86-4.86)
[2020-11-20 10:25] LABS: Urine Blood Trace-intact (Negative); Urine Glucose Negative (Negative); Urine Protein Negative (Negative)
[2020-11-20 10:25] LABS: ALT/SGPT 28 U/L (12-78); AST/SGOT 15 U/L (15-37); Albumin 3.4 g/dL (3.4-5.0); Alkaline Phosphatase 59 U/L (45-117); BUN Blood Urea Nitrogen 7 mg/dL (7-18); Bicarbonate 27 mmol/L (21-32); Bilirubin Direct 0.1 mg/dL (0-0.2); Bilirubin Total 0.4 mg/dL (0.2-1.0); Glucose Level 112 mg/dL (74-106); Potassium 3.8 mmol/L (3.5-5.1); Protein, Total 6.7 g/dL (6.4-8.2); Sodium Level 139 mmol/L (136-145)
[2020-11-20 10:26] LABS: Lipase 81 U/L (73-393)
[2020-11-20 10:59] LABS: Urine Bacteria NONE SEEN /HPF (<20); Urine RBC NONE SEEN /HPF (NONE SEEN)
--- NOTE | 2020-11-20 11:27 | RAD REPORT ---
EXAM DESCRIPTION: CT - Abdomen Pelvis W Contrast - 11/20/2020 10:48 am CLINICAL HISTORY: FLANK PAIN, UA abnormalities. Occasional chills without fever Prior history of ovarian cyst, prior cholecystectomy and appendectomy COMPARISON: CT October 2014 TECHNIQUE: Biphasic, helical CT imaging of the abdomen and pelvis was performed following 100 ml non -ionic IV contrast. No oral contrast given. All CT scans are performed using dose optimization technique as appropriate and may include automated exposure control or mA/KV adjustment according to patient size. FINDINGS: No suspicious findings in the lung bases. The liver, spleen, and pancreas show no suspicious findings. Cholecystectomy clips are present. Bilia ry tree dilatation is present in a pattern similar to 2014. This is believed be the reservoir effect that occurs after a cholecystectomy. Duct stones can be occult blood are not suspected. Correlation i s needed with any clinical or laboratory findings that suggest biliary obstruction. Symmetric renal function is seen with no hydronephrosis or suspicious renal mass. No pyelonephritis o r ureteritis findings identifiable. No bladder wall thickening or abnormal enhancement. No bladder st ones seen. No adrenal abnormalities. Uterus and ovaries show no suspicious findings. No gastric dilatation, wall thickening or mass. No dilated small bowel loops. There are a few nonspec ific fluid-filled small bowel loops without wall thickening or edema. Colon is mostly decompressed. T here is some mild stranding in the fatty tissues around the rectum and minimal edema appearance to th e rectum and distal sigmoid colon. No wall thickening or mass. No free air, pneumatosis or free fluid. No hernia, mass or bulky lymphadenopathy. No suspicious bony findings. IMPRESSION: No pyelonephritis, ureteritis or other findings for an acute finding. No STEEL LAYER abnorma lity seen. Burch of the distal sigmoid colon and rectum appear slightly thickened and there is some stranding in the adjacent fat. Correlation is needed with any findings that suggest proctitis or distal sigmoid c olitis.
[2020-11-20] MEDS ORDERED: CIPROFLOXACIN HCL 500 MG TAB ONE (13:17)
[2020-11-20] MEDS ORDERED: METRONIDAZOLE 500mg IVPB 500 MG/100 ML BAG IV ONE (13:18)
--- NOTE | 2020-11-20 13:42 | ER ---
Nurse's Notes [facility] Name: Minesh Hanley Age: 39 yrs Sex: Female : 1980 Arrival Date: 11/20/2020 Time: 09:07 Bed 2 Private MD: Diagnosis: Colitis Presentation: 11/20 09:27 Chief complaint: Patient states: Low back pain since Friday. Abd pain started today. ll1 Urine is cloudy and hesitancy noted for 2 days. No fever, but has chills as times. Coronavirus screen: Client denies travel out of the [place] in the last 14 days. At this time, the client does not indicate any symptoms associated with coronavirus-19. Ebola Screen: Patient denies travel to an Ebola-affected area in the 21 days before illness onset. Initial Sepsis Screen: Does the patient meet any 2 criteria? No. Patient's initial sepsis screen is negative. Does the patient have a suspected source of infection? Yes: Acute abdominal pain. Risk Assessment: Do you want to hurt yourself or someone else? Patient reports no desire to harm self or others. Onset of symptoms was November 17, 2020. 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 - Social history:: Smoking status: Patient denies any tobacco usage or history of. Screenin:06 Abuse screen: Denies threats or abuse. Denies injuries from another. Nutritional kg screening: No deficits noted. Tuberculosis screening: No symptoms or risk factors identified. Fall Risk None identified. No fall in past 12 months (0 pts). No secondary diagnosis (0 pts). IV access (20 points). Ambulatory Aid- None/Bed Rest/Nurse Assist (0 pts). Gait- Normal/Bed Rest/Wheelchair (0 pts) Mental Status- Oriented to own ability (0 pts). Total Nye Fall Scale indicates No Risk (0-24 pts). Assessment: 10:21 General: Appears in no apparent distress. Behavior is calm, cooperative, appropriate kg for age, quiet. Pain: Complains of pain in back 11:06 Neuro: No deficits noted. Level of Consciousness is awake, alert, obeys commands, kg Oriented to person, place, time, situation, Appropriate for age. Cardiovascular: No deficits noted. Heart tones S1 S2. Respiratory: No deficits noted. Airway is patent. GI: No deficits noted. Bowel sounds present X 4 quads. Abd is soft Abdomen is tender to palpation X 4 quads. : Reports hesitance with urination. EENT: No deficits noted. Derm: No deficits noted. No signs and/or symptoms reported regarding the dermatologic system. Musculoskeletal: No deficits noted. Vital Signs: 09:27 BP 109 / 71; Pulse 75; Resp 16; Temp 97.4; Pulse Ox 100% ; Weight 77.11 kg; Height 5 ll1 ft. 6 in. (167.64 cm); Pain 8/10; 10:00 BP 107 / 60; Pulse 74; Resp 20; Pulse Ox 100% on R/A; kg 11:00 BP 100 / 74; Pulse 83; Resp 20; Pulse Ox 100% ; kg 12:39 BP 108 / 67; Pulse 68; Resp 20; Pulse Ox 100% on R/A; kg 13:40 BP 116 / 64; Pulse 66; Resp 20; Pulse Ox 94% on R/A; kg 09:27 Body Mass Index 27.44 (77.11 kg, 167.64 cm) ll1 ED Course: 09:07 Patient arrived in ED. as 09:29 Triage completed. ll1 09:29 Arm band placed on. ll1 09:32 Berlin Parham NP is PHCP. pm1 09:32 Dixon Donald MD is Attending Physician. pm1 09:48 France Riley is Primary Nurse. kg 09:59 Inserted saline lock: 20 gauge in right antecubital area, using aseptic technique. mt Blood collected. 10:49 CT Abd/Pelvis - IV Contrast Only In Process Unspecified. EDMS 11:09 Patient has correct armband on for positive identification. Placed in gown. Bed in low kg position. Call light in reach. Side rails up X2. Adult w/ patient. 14:13 No provider procedures requiring assistance completed. IV discontinued, intact, kg bleeding controlled, No redness/swelling at site. Pressure dressing applied. Administered Medications: 10:01 Drug: morphine 4 mg Route: IVP; Site: right antecubital; kg 11:04 Follow up: Response: No adverse reaction; Marked relief of symptoms kg 10:01 Drug: Zofran (Ondansetron) 4 mg Route: IVP; Site: right antecubital; kg 11:03 Follow up: Response: No adverse reaction; Marked relief of symptoms kg 10:01 Drug: NS 0.9% 1000 ml Route: IV; Rate: 1000 ml; Site: right antecubital; kg 11:03 Follow up: Response: No adverse reaction; Marked relief of symptoms; IV Status: kg Completed infusion; IV Intake: 1000ml 14:15 Follow up: Response: No adverse reaction; Marked relief of symptoms; IV Status: kg Completed infusion; IV Intake: 1000ml 13:04 Drug: Flagyl (metroNIDAZOLE) 500 mg Volume: 100 ml; Route: IVPB; Rate: 200 ml/hr; kg Infused Over: 30 mins; Site: right antecubital; 14:15 Follow up: Response: No adverse reaction; Marked relief of symptoms; IV Status: kg Completed infusion; IV Intake: 100ml 13:04 Drug: Cipro (ciprofloxacin) 500 mg Route: PO; kg 14:15 Follow up: Response: No adverse reaction kg Intake: 11:03 IV: 1000ml; Total: 1000ml. kg 14:15 IV: 100ml; Total: 1100ml. kg 14:15 IV: 1000ml; Total: 2100ml. kg Outcome: 13:42 Discharge ordered by pm1 14:14 Discharged to home kg 14:14 Discharged to home ambulatory. 14:14 Condition: improved 14:14 Discharge instructions given to patient, family, Instructed on discharge instructions, follow up and referral plans. Demonstrated understanding of instructions, follow-up care, medications, Prescriptions given X 3. 14:16 Patient left the ED. kg Signatures: Dispatcher [employer] EDLatha Ludwig Patrick RULING MACHINE SET UP OPERATOR RULING MACHINE SET UP OPERATOR pm1 Poly De León mt, Lynsay, RN RN ll1 France Riley kg
--- NOTE | 2020-11-20 13:43 | EDPHYS ---
Physician Documentation [facility] Name: Minesh Hanley Age: 39 yrs Sex: Female : 1980 Arrival Date: 11/20/2020 Time: 09:07 Bed 2 Private MD: GREGORIO Physician Dixon Donald HPI: 11/20 09:41 This 39 yrs old Female presents to ER via Ambulatory with complaints of pm1 Abdominal Pain, Back Pain. 09:41 The patient complains of pain in the left low back. The pain radiates to the suprapubic pm1 area and left lower quadrant. Onset: The symptoms/episode began/occurred 2 day(s) ago. Modifying factors: The symptoms are alleviated by nothing. the symptoms are aggravated by movement. Associated signs and symptoms: Pertinent positives: urinary hesitancy, Pertinent negatives: diarrhea, fever, nausea, vomiting. Severity of pain: in the emergency department the pain is actually worse. The patient has experienced similar episodes in the past, a few times, dx at those times were UTI, ovarian cyst. 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 - Social history:: Smoking status: Patient denies any tobacco usage or history of. ROS: 09:41 Constitutional: Negative for fever, chills, and weight loss, Cardiovascular: Negative pm1 for chest pain, palpitations, and edema, Respiratory: Negative for shortness of breath, cough, wheezing, and pleuritic chest pain. 09:41 MS/Extremity: Negative for injury and deformity, Skin: Negative for injury, rash, and discoloration, Neuro: Negative for headache, weakness, numbness, tingling, and seizure. 09:41 Abdomen/GI: Positive for abdominal pain, Negative for nausea, vomiting, and diarrhea. 09:41 Back: Positive for flank pain, on the left, Negative for injury or acute deformity, decreased range of motion. 09:41 : Positive for Hestiancy, Negative for urinary frequency, burning with urination, vaginal discharge. Exam: 09:41 Constitutional: This is a well developed, well nourished patient who is awake, alert, pm1 and in no acute distress. Head/Face: Normocephalic, atraumatic. 09:41 Eyes: Pupils equal round and reactive to light, extra-ocular motions intact. Lids and lashes normal. Conjunctiva and sclera are non-icteric and not injected. Cornea within normal limits. Periorbital areas with no swelling, redness, or edema. 09:41 Back: No spinal tenderness. No costovertebral tenderness. Full range of motion. Skin: Warm, dry with normal turgor. Normal color with no rashes, no lesions, and no evidence of cellulitis. MS/ Extremity: Pulses equal, no cyanosis. Neurovascular intact. Full, normal range of motion. 09:41 ENT: Exam is negative for acute changes, Mouth: Oral mucosa: normal, pink and intact, moist, Posterior pharynx: is normal, airway is patent, no erythema, no exudate, no peritonsilar mass, no pooling of secretions, no swelling. 09:41 Cardiovascular: Exam negative for acute changes, Rate: normal, Rhythm: regular, Pulses: no pulse deficits are appreciated. 09:41 Respiratory: Exam negative for acute changes, respiratory distress, shortness of breath. 09:41 Abdomen/GI: Inspection: abdomen appears normal, Palpation: soft, in all quadrants, mild abdominal tenderness, in the suprapubic area. 09:41 Neuro: Exam negative for acute changes, Orientation: is normal, Mentation: is normal, Motor: is normal, moves all fours, Gait: is steady, at a normal pace, without difficulty. Vital Signs: 09:27 BP 109 / 71; Pulse 75; Resp 16; Temp 97.4; Pulse Ox 100% ; Weight 77.11 kg; Height 5 ll1 ft. 6 in. (167.64 cm); Pain 8/10; 10:00 BP 107 / 60; Pulse 74; Resp 20; Pulse Ox 100% on R/A; kg 11:00 BP 100 / 74; Pulse 83; Resp 20; Pulse Ox 100% ; kg 12:39 BP 108 / 67; Pulse 68; Resp 20; Pulse Ox 100% on R/A; kg 13:40 BP 116 / 64; Pulse 66; Resp 20; Pulse Ox 94% on R/A; kg 09:27 Body Mass Index 27.44 (77.11 kg, 167.64 cm) ll1 MDM: 09:34 Patient medically screened. pm1 09:49 Data reviewed: vital signs. Data interpreted: Pulse oximetry: on room air is 100 %. pm1 Interpretation: normal. 13:41 Counseling: I had a detailed discussion with the patient and/or guardian regarding: the pm1 historical points, exam findings, and any diagnostic results supporting the discharge/admit diagnosis, lab results, radiology results, the need for outpatient follow up, to return to the emergency department if symptoms worsen or persist or if there are any questions or concerns that arise at home. 11/20 09:41 Order name: Basic Metabolic Panel pm1 11/20 09:41 Order name: CBC with Diff; Complete Time: 10:37 pm1 11/20 09:41 Order name: Hepatic Function; Complete Time: 10:37 pm1 11/20 09:41 Order name: Lipase; Complete Time: 10:37 pm1 11/20 09:41 Order name: Urine Microscopic Only; Complete Time: 11:02 pm1 11/20 09:42 Order name: Basic Metabolic Panel; Complete Time: 10:37 EDMS 11/20 09:41 Order name: CT Abd/Pelvis - IV Contrast Only; Complete Time: 11:32 pm1 11/20 10:24 Order name: Urine Dipstick-Ancillary; Complete Time: 10:37 EDMS 11/20 10:35 Order name: Urine --Ancillary (enter results); Complete Time: 10:38 bd 11/20 09:41 Order name: IV Saline Lock; Complete Time: 10:00 pm1 11/20 09:41 Order name: Labs collected and sent; Complete Time: 10:00 pm1 Administered Medications: 10:01 Drug: morphine 4 mg Route: IVP; Site: right antecubital; kg 11:04 Follow up: Response: No adverse reaction; Marked relief of symptoms kg 10:01 Drug: Zofran (Ondansetron) 4 mg Route: IVP; Site: right antecubital; kg 11:03 Follow up: Response: No adverse reaction; Marked relief of symptoms kg 10:01 Drug: NS 0.9% 1000 ml Route: IV; Rate: 1000 ml; Site: right antecubital; kg 11:03 Follow up: Response: No adverse reaction; Marked relief of symptoms; IV Status: kg Completed infusion; IV Intake: 1000ml 14:15 Follow up: Response: No adverse reaction; Marked relief of symptoms; IV Status: kg Completed infusion; IV Intake: 1000ml 13:04 Drug: Flagyl (metroNIDAZOLE) 500 mg Volume: 100 ml; Route: IVPB; Rate: 200 ml/hr; kg Infused Over: 30 mins; Site: right antecubital; 14:15 Follow up: Response: No adverse reaction; Marked relief of symptoms; IV Status: kg Completed infusion; IV Intake: 100ml 13:04 Drug: Cipro (ciprofloxacin) 500 mg Route: PO; kg 14:15 Follow up: Response: No adverse reaction kg Disposition: 11/21 10:00 Co-signature as Attending Physician, Dixon Donald MD I agree with the assessment and bailey plan of care. Disposition: 11/20/20 13:42 Discharged to Home. Impression: Colitis. - Condition is Stable. - Discharge Instructions: Colitis. - Prescriptions for Flagyl 500 mg Oral Tablet - take 1 tablet by ORAL route every 8 hours for 10 days; 30 tablet. Tylenol- Codeine #3 300-30 mg Oral Tablet - take 2 tablets by ORAL route every 4-6 hours As needed; 20 tablet. Cipro 500 mg Oral Tablet - take 1 tablet by ORAL route every 12 hours for 10 days; 20 tablet. - Medication Reconciliation Form, Thank You Letter, Antibiotic Education, Prescription Opioid Use form. - Follow up: Emergency Department; When: As needed; Reason: Worsening of condition. Follow up: Private Physician; When: 2 - 3 days; Reason: Recheck today's complaints, Continuance of care, Re-evaluation by your physician. - Problem is new. - Symptoms have improved. Signatures: Dispatcher [employer] Dixon Tran MD MD cha Marinas, Patrick, REGIONAL ENVIRONMENTAL MANAGER REGIONAL ENVIRONMENTAL MANAGER pm1 Jeronimo Ayala, RN RN ll1 France Riley kg Corrections: (The following items were deleted from the chart) 11/20 14:16 13:42 11/20/2020 13:42 Discharged to Home. Impression: Colitis. Condition is Stable. kg Forms are Medication Reconciliation Form, Thank You Letter, Antibiotic Education, Prescription Opioid Use. Follow up: Emergency Department; When: As needed; Reason: Worsening of condition. Follow up: Private Physician; When: 2 - 3 days; Reason: Recheck today's complaints, Continuance of care, Re-evaluation by your physician. Problem is new. Symptoms have improved. pm1
[2020-11-20 14:26] VITALS: TEMP 97.4
[2020-11-20 14:43] VITALS: BP 116/64; O2SAT 94
== END 2020-11-20 14:16 | disposition home or self-care (01) ==
LOC: ER 09:06
DX: K52.9 Noninfective gastroenteritis and colitis, unspecified (principal)
CPT/HCPCS: 36415; 74177; 80048; 80076; 81003; 81015; 81025; 83690; 85025; 96361; 96365; 96375; 99284; J2405; J7030; Q9967

== ENCOUNTER 2020-11-21 01:11 | Emergency (ER) | payer SELFPAY ==
--- NOTE | 2020-11-21 03:41 | EDPHYS ---
Physician Documentation [facility] Name: Minesh Hanley Age: 39 yrs Sex: Female : 1980 Arrival Date: 11/21/2020 Time: 01:15 Bed 16 Private MD: Akiko Fraser H ED Physician Dick Connors HPI: 11/21 04:08 This 39 yrs old Female presents to ER via Ambulatory with complaints of tw4 Abdominal Pain, Back Pain, Diarrhea. 04:08 The patient presents with abdominal pain in the epigastric area. Onset: The tw4 symptoms/episode began/occurred today. The symptoms do not radiate. Associated signs and symptoms: none. The symptoms are described as dull. Modifying factors: The symptoms are alleviated by nothing, the symptoms are aggravated by nothing. Severity of pain: At its worst the pain was moderate in the emergency department the pain is unchanged. The patient has not experienced similar symptoms in the past. 04:09 The patient has been recently seen at the [facility] Emergency tw4 Department, today, for similar complaints labs were performed, CT scan was performed, was given IV fluids, was given a prescription for antibiotics, the patient was told to return for a recheck. 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 - Social history:: Smoking status: Patient denies any tobacco usage or history of. ROS: 04:08 Constitutional: Negative for fever, chills, and weight loss, Eyes: Negative for injury, tw4 pain, redness, and discharge, Cardiovascular: Negative for chest pain, palpitations, and edema, Respiratory: Negative for shortness of breath, cough, wheezing, and pleuritic chest pain, Back: Negative for injury and pain, MS/Extremity: Negative for injury and deformity, Skin: Negative for injury, rash, and discoloration, Neuro: Negative for headache, weakness, numbness, tingling, and seizure. 04:08 Abdomen/GI: Positive for abdominal pain, nausea and vomiting, nausea, vomiting, and diarrhea, Negative for constipation, abdominal cramps, abdominal distension, anorexia, dysphagia, hematemesis, black/tarry stool, rectal pain, rectal bleeding. Exam: 04:08 Constitutional: This is a well developed, well nourished patient who is awake, alert, tw4 and in no acute distress. Head/Face: Normocephalic, atraumatic. Chest/axilla: Normal chest wall appearance and motion. Nontender with no deformity. No lesions are appreciated. Cardiovascular: Regular rate and rhythm with a normal S1 and S2. No gallops, murmurs, or rubs. Normal PMI, no JVD. No pulse deficits. Respiratory: Lungs have equal breath sounds bilaterally, clear to auscultation and percussion. No rales, rhonchi or wheezes noted. No increased work of breathing, no retractions or nasal flaring. Back: No spinal tenderness. No costovertebral tenderness. Full range of motion. Skin: Warm, dry with normal turgor. Normal color with no rashes, no lesions, and no evidence of cellulitis. MS/ Extremity: Pulses equal, no cyanosis. Neurovascular intact. Full, normal range of motion. Neuro: Awake and alert, GCS 15, oriented to person, place, time, and situation. Cranial nerves II-XII grossly intact. Motor strength 5/5 in all extremities. Sensory grossly intact. Cerebellar exam normal. Normal gait. 04:08 Abdomen/GI: Inspection: abdomen appears normal, Bowel sounds: diminished, Palpation: mild abdominal tenderness, in the left upper quadrant and left lower quadrant. Vital Signs: 01:47 BP 119 / 81; Pulse 66; Resp 16; Temp 97.8; Pulse Ox 99% on R/A; Weight 77.11 kg; Height iw 5 ft. 6 in. (167.64 cm); 03:28 BP 113 / 71; Pulse 62; Resp 16; Pulse Ox 98% on R/A; ak2 01:47 Body Mass Index 27.44 (77.11 kg, 167.64 cm) iw MDM: 02:06 Patient medically screened. tw4 04:10 Differential diagnosis: acute coronary syndrome, appendicitis, bowel obstruction, tw4 cholecystitis, Cholelithiasis, diverticulitis, non-specific abd pain. Data reviewed: vital signs, nurses notes. Data interpreted: Pulse oximetry: Interpretation: normal. Counseling: I had a detailed discussion with the patient and/or guardian regarding: the historical points, exam findings, and any diagnostic results supporting the discharge/admit diagnosis. Special discussion: Based on the patient's Hx, exam, and Dx evaluation, there is no indication for emergent surgery or inpatient Tx. It is understood by the patient/guardian that if the Sx's persist or worsen they need to return immediately for re-evaluation. I discussed with the patient/guardian in detail that at this point there is no indication for admission to the hospital. It is understood, however, that if the symptoms persist or worsen the patient needs to return immediately for re-evaluation. Administered Medications: 03:24 Drug: TORadol (ketorolac) 60 mg Route: IM; Site: left deltoid; ak2 03:25 Drug: LoMOTIL (diphenoxylate-atropine) 1 tabs Route: PO; ak2 Disposition: 11/21/20 03:41 Discharged to Home. Impression: Left sided colitis. - Condition is Stable. - Discharge Instructions: Colitis. - Medication Reconciliation Form, Thank You Letter, Antibiotic Education, Prescription Opioid Use form. - Follow up: Akiko Fraser DO; When: Upon discharge from the Emergency Department; Reason: Recheck today's complaints, Continuance of care, Re-evaluation by your physician. - Problem is new. - Symptoms have improved. Signatures: Eda Eason RN RN Dick Rhodes MD MD tw4 Dwight Price ak2 Corrections: (The following items were deleted from the chart) 03:47 03:41 11/21/2020 03:41 Discharged to Home. Impression: Left sided colitis. Condition is ak2 Stable. Forms are Medication Reconciliation Form, Thank You Letter, Antibiotic Education, Prescription Opioid Use. Follow up: Akiko Fraser; When: Upon discharge from the Emergency Department; Reason: Recheck today's complaints, Continuance of care, Re-evaluation by your physician. Problem is new. Symptoms have improved. tw4
--- NOTE | 2020-11-21 03:41 | ER ---
Nurse's Notes [facility] Name: Minesh Hanley Age: 39 yrs Sex: Female : 1980 Arrival Date: 11/21/2020 Time: 01:15 Bed 16 Private MD: Akiko Fraser H Diagnosis: Left sided colitis Presentation: 11/21 01:47 Chief complaint: Patient states: was seen here earlier this morning, diagnosed with iw colitis, sent home with antibiotics and tylenol with codeine, did not get pain medicine filled because she took a [place], now is having more pain and more diarrhea, incontinent of stool. Coronavirus screen: At this time, the client does not indicate any symptoms associated with coronavirus-19. Ebola Screen: Patient negative for fever greater than or equal to 101.5 degrees Fahrenheit, and additional compatible Ebola Virus Disease symptoms Patient denies exposure to infectious person. Patient denies travel to an Ebola-affected area in the 21 days before illness onset. No symptoms or risks identified at this time. Initial Sepsis Screen: Does the patient meet any 2 criteria? No. Patient's initial sepsis screen is negative. Does the patient have a suspected source of infection? No. Patient's initial sepsis screen is negative. Risk Assessment: Do you want to hurt yourself or someone else? Patient reports no desire to harm self or others. Onset of symptoms was November 21, 2020. 01:47 Method Of Arrival: Ambulatory iw 01:47 Acuity: CHARLEEN 3 iw Triage Assessment: 01:55 General: Appears in no apparent distress. Behavior is calm, cooperative. Pain: Denies ak2 pain. Pain: Complains of pain in abdomen. GI: No deficits noted. 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 - Social history:: Smoking status: Patient denies any tobacco usage or history of. Screenin:54 Abuse screen: Denies threats or abuse. Denies injuries from another. Nutritional ak2 screening: No deficits noted. Tuberculosis screening: No symptoms or risk factors identified. Fall Risk None identified. Assessment: 01:55 GI: Bowel sounds present X 4 quads. Abd is soft and non tender. ak2 Vital Signs: 01:47 BP 119 / 81; Pulse 66; Resp 16; Temp 97.8; Pulse Ox 99% on R/A; Weight 77.11 kg; Height iw 5 ft. 6 in. (167.64 cm); 03:28 BP 113 / 71; Pulse 62; Resp 16; Pulse Ox 98% on R/A; ak2 01:47 Body Mass Index 27.44 (77.11 kg, 167.64 cm) iw ED Course: 01:15 Patient arrived in ED. es 01:15 Akiko Fraser DO is Private Physician. es 01:50 Triage completed. iw 01:53 Dwight Price is Primary Nurse. ak2 01:54 Patient has correct armband on for positive identification. ak2 01:54 No provider procedures requiring assistance completed. ak2 02:06 Dick Connors MD is Attending Physician. tw4 03:29 Arm band placed on right wrist. ak2 03:29 Patient did not have IV access during this emergency room visit. ak2 03:40 Akiko Fraser DO is Referral Physician. tw4 Administered Medications: 03:24 Drug: TORadol (ketorolac) 60 mg Route: IM; Site: left deltoid; ak2 03:25 Drug: LoMOTIL (diphenoxylate-atropine) 1 tabs Route: PO; ak2 Outcome: 03:29 Discharged to home ambulatory. ak2 03:29 Condition: good 03:29 Discharge instructions given to patient. 03:41 Discharge ordered by . tw4 03:47 Patient left the ED. ak2 Signatures: Dianna De La Garza Irene, NAVEEN RN iw Dick Connors MD MD tw4 Dwight Price ak2
[2020-11-21] MEDS ORDERED: KETOROLAC 30 MG/ML INJ ONE (03:42)
[2020-11-21] MEDS ORDERED: DIPHENOX/ATROP SULF 1 TAB PO ONE (03:42)
[2020-11-21 03:58] VITALS: BP 113/71; O2SAT 98
[2020-11-21 04:02] VITALS: TEMP 97.8
== END 2020-11-21 03:47 | disposition home or self-care (01) ==
LOC: ER 01:11
DX: K51.50 Left sided colitis without complications (principal); F41.8 Other specified anxiety disorders
CPT/HCPCS: 96372; 99283

== ENCOUNTER 2020-11-30 21:21 | Emergency (ER) | payer SELFPAY ==
[2020-11-30 22:43] LABS: ALT/SGPT 24 U/L (12-78); AST/SGOT 16 U/L (15-37); Albumin 3.2 g/dL (3.4-5.0); Alkaline Phosphatase 42 U/L (45-117); BUN Blood Urea Nitrogen 10 mg/dL (7-18); Bicarbonate 26 mmol/L (21-32); Bilirubin Direct < 0.1 mg/dL (0-0.2); Bilirubin Total 0.2 mg/dL (0.2-1.0); Glucose Level 87 mg/dL (74-106); Lipase 451 U/L (73-393); Potassium 4.1 mmol/L (3.5-5.1); Protein, Total 6.3 g/dL (6.4-8.2); Sodium Level 144 mmol/L (136-145)
[2020-11-30] MEDS ORDERED: ONDANSETRON 4 MG (ODT) TAB ONE (22:43)
[2020-11-30] MEDS ORDERED: DICYCLOMINE HCL 10 MG CAP ONE (22:43)
[2020-11-30 22:55] LABS: Absolute Lymphocytes (CBC) 1.9 K/uL (0.7-4.9); Basophils % 0.5 % (0-1.3); Hematocrit 37.8 % (36.0-45.0); Lymphocytes % 31.2 % (15.3-44.8); RBC Red Blood Cell Count 3.97 M/uL (3.86-4.86)
[2020-11-30 23:00] LABS: Urine Blood Negative (Negative); Urine Glucose Negative (Negative); Urine Protein Negative (Negative); Urine Specific Gravity 1.025 (1.005-1.030)
[2020-11-30 23:10] LABS: Urine Specific Gravity/Preg 1.025 (1.005-1.030)
[2020-12-01] MEDS ORDERED: MAGNES/ALUMIN/SIMET 30ML UCUP ONE (00:30)
[2020-12-01] MEDS ORDERED: LIDOCAINE VISCOUS 2% SOLN 15 ML UDC ONE (00:30)
[2020-12-01] MEDS ORDERED: NA CHLORIDE 0.9% 1,000 ML ONE (00:30)
[2020-12-01] MEDS ORDERED: MEPERIDINE HCL 25 MG/ML SYR ONE (00:56)
--- NOTE | 2020-12-01 01:05 | EDPHYS ---
Physician Documentation [facility] Name: Minesh Hanley Age: 39 yrs Sex: Female : 1980 Arrival Date: 11/30/2020 Time: 21:24 Bed 24 Private MD: ED Physician Tony Omalley HPI: 11/30 22:05 This 39 yrs old Female presents to ER via Ambulatory with complaints of cp Abdominal Pain. 22:05 The patient presents with abdominal pain in the epigastric area. cp 22:05 Onset: The symptoms/episode began/occurred 2 day(s) ago. cp 22:05 Patient seen in this ED 11-20-2020 and 11-21-2020 and diagnosed with colitis. Patient cp reports finishing antibiotics. No f/u with GI and/or pcp. Had CT abdomen at 11-20-2020 visit. 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 - Social history:: Smoking status: unknown. ROS: 22:10 Constitutional: Negative for body aches, chills, fever, poor PO intake. cp 22:10 Eyes: Negative for injury, pain, redness, and discharge. cp 22:10 ENT: Negative for ear pain, sore throat, difficulty swallowing, difficulty handling secretions. 22:10 Cardiovascular: Negative for chest pain. 22:10 Respiratory: Negative for cough, shortness of breath, wheezing. 22:10 Abdomen/GI: Positive for abdominal pain, diarrhea, Negative for constipation, active vomiting. 22:10 : Negative for urinary symptoms. 22:10 Neuro: Negative for altered mental status, headache, weakness. 22:10 All other systems are negative. Exam: 22:15 Constitutional: The patient appears in no acute distress, alert, awake, non-toxic, well cp developed, well nourished. 22:15 Head/Face: Normocephalic, atraumatic. cp 22:15 Eyes: Periorbital structures: appear normal, Conjunctiva: normal, no exudate, no injection, Sclera: no appreciated abnormality, Lids and lashes: appear normal, bilaterally. 22:15 ENT: External ear(s): are unremarkable, Nose: is normal, Mouth: Lips: moist, Oral mucosa: moist, Posterior pharynx: Airway: no evidence of obstruction, patent. 22:15 Chest/axilla: Inspection: normal, Palpation: is normal, no crepitus, no tenderness. 22:15 Cardiovascular: Rate: tachycardic, Rhythm: regular. 22:15 Respiratory: the patient does not display signs of respiratory distress, Respirations: normal, no use of accessory muscles, no retractions, labored breathing, is not present, Breath sounds: are clear throughout, no decreased breath sounds, no stridor, no wheezing. 22:15 Abdomen/GI: Inspection: abdomen appears normal, Bowel sounds: active, all quadrants, Palpation: soft, in all quadrants, moderate abdominal tenderness, in the epigastric area, rebound tenderness, is not appreciated, involuntary guarding, is not appreciated. 22:15 Back: CVA tenderness, is absent. Vital Signs: 21:26 BP 113 / 67; Pulse 105; Resp 20 S; Temp 97.1; Pulse Ox 97% ; Weight 79.38 kg; Height 5 ad5 ft. 6 in. (167.64 cm); Pain 9/10; 12/01 01:43 BP 132 / 78; Pulse 89; Resp 16; Pulse Ox 98% on R/A; iw 11/30 21:26 Body Mass Index 28.25 (79.38 kg, 167.64 cm) ad5 MDM: 11/30 22:03 Patient medically screened. cp 22:30 Differential diagnosis: gastritis, pancreatitis, Peptic Ulcer Disease, Perf. Duodenal cp Ulcer, Perf. Gastric Ulcer. 12/01 01:04 Data reviewed: vital signs, nurses notes, old medical records, notes from recent cp previous ED visits lab test result(s), and as a result, I will discharge patient. 01:04 Counseling: I had a detailed discussion with the patient and/or guardian regarding: the cp historical points, exam findings, and any diagnostic results supporting the discharge/admit diagnosis, lab results, radiology results, the need for outpatient follow up, a pharm spec, to return to the emergency department if symptoms worsen or persist or if there are any questions or concerns that arise at home. 01:04 ED course: VSS. Nausea and pain improved. No active vomiting observed in ED. Labs cp reviewed. Will not repeat CT abdomen at this time and will discharge to home for continued monitoring. 11/30 22:08 Order name: Basic Metabolic Panel; Complete Time: 00:05 EDMS 11/30 22:08 Order name: Lipase; Complete Time: 00:05 EDMS 11/30 22:09 Order name: CBC with Automated Diff; Complete Time: 00:05 EDMS 11/30 22:09 Order name: Liver (Hepatic) Function; Complete Time: 00:05 EDMS 11/30 23:00 Order name: Urine Dipstick-Ancillary; Complete Time: 00:05 EDMS 11/30 22:00 Order name: IV Saline Lock; Complete Time: 22:22 cp 11/30 22:00 Order name: Labs collected and sent; Complete Time: 22:22 cp 11/30 22:00 Order name: Urine Test (obtain specimen); Complete Time: 23:00 cp 11/30 22:00 Order name: Urine Dipstick-Ancillary (obtain specimen); Complete Time: 23:00 cp 11/30 23:01 Order name: Urine --Ancillary (enter results) ds4 11/30 23:02 Order name: Urine --Ancillary; Complete Time: 00:05 EDMS Administered Medications: 11/30 22:29 Drug: Bentyl (dicyclomine) 20 mg Route: PO; iw 22:29 Drug: Zofran (Ondansetron) 4 mg Route: PO; iw 12/01 00:30 Drug: NS 0.9% 1000 ml Route: IV; Rate: 1 bolus; Site: left forearm; iw 00:31 Drug: GI Cocktail without - (Maalox Suspension 30 ml, Lidocaine Liquid 2 % 15 iw ml) Route: PO; 00:40 Drug: Demerol (meperidine) 25 mg Route: IVP; Site: left forearm; iw Disposition: 03:07 Co-signature as Attending Physician, Tony Omalley MD. pkl Disposition: 12/01/20 01:04 Discharged to Home. Impression: Epigastric pain. - Condition is Stable. - Discharge Instructions: Gastritis, Adult. - Prescriptions for Carafate 1 gram Oral Tablet - take 1 tablet by ORAL route 4 times per day take on an empty stomach, beginning on waking and last dose at bedtime. Dissolve tablet in small amount warm water prior to ingestion; 100 tablet. Protonix 40 mg Oral Tablet - take 1 tablet by ORAL route once daily; 30 tablet. Zofran 4 mg Oral Tablet - take 1 tablet by ORAL route every 12 hours As needed; 20 tablet. - Medication Reconciliation Form, Thank You Letter, Antibiotic Education, Prescription Opioid Use form. - Follow up: Horacio Uribe MD; When: 1 - 2 days; Reason: Recheck today's complaints. - Problem is an ongoing problem. - Symptoms have improved. Signatures: Dispatcher [employer] EDMS Tony Omalley MD MD pkl Williams, Irene, RN RN iw Dixon Carrasco PA PA cp Davidson, Andrea ad5 Corrections: (The following items were deleted from the chart) 11/30 22:36 22:22 BASIC METABOLIC PANEL+C.LAB.BRZ ordered. EDMS EDMS 22:36 22:22 CBC+H.LAB.BRZ ordered. EDMS EDMS 22:36 22:23 HEPATIC FUNCTION+C.LAB.BRZ ordered. EDMS EDMS 22:36 22:23 LIPASE+C.LAB.BRZ ordered. EDNM EDMS 12/01 01:43 01:04 12/01/2020 01:04 Discharged to Home. Impression: Epigastric pain. Condition is iw Stable. Forms are Medication Reconciliation Form, Thank You Letter, Antibiotic Education, Prescription Opioid Use. Follow up: Horacio Uribe; When: 1 - 2 days; Reason: Recheck today's complaints. Problem is an ongoing problem. Symptoms have improved. cp
--- NOTE | 2020-12-01 01:05 | ER ---
Nurse's Notes [facility] Name: Minesh Hanley Age: 39 yrs Sex: Female : 1980 Arrival Date: 11/30/2020 Time: 21:24 Bed 24 Private MD: Diagnosis: Epigastric pain Presentation: 11/30 21:26 Chief complaint: Patient states: Pt reports epigastric abd pain, n/v/d x 2 days. ad5 Reports dx with colitis last week, has finished abx, states similar s/s. Pain worse with eating. Coronavirus screen: At this time, the client does not indicate any symptoms associated with coronavirus-19. Ebola Screen: No symptoms or risks identified at this time. Initial Sepsis Screen: Does the patient meet any 2 criteria? HR > 90 bpm. Does the patient have a suspected source of infection? Yes: Other: recent dx colitis. Risk Assessment: Do you want to hurt yourself or someone else? Patient reports no desire to harm self or others. Onset of symptoms was November 28, 2020. 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 - Social history:: Smoking status: unknown. Screenin:09 Abuse screen: Denies threats or abuse. Denies injuries from another. Nutritional iw screening: No deficits noted. Tuberculosis screening: No symptoms or risk factors identified. Fall Risk None identified. IV access (20 points). Assessment: 22:08 General: Appears uncomfortable, Behavior is calm, cooperative. Pain: Complains of pain iw in abdomen Pain currently is 9 out of 10 on a pain scale. Neuro: No deficits noted. Level of Consciousness is awake, alert, obeys commands, Oriented to person, place, time, situation, Moves all extremities. Full function. Cardiovascular: Patient's skin is warm and dry. Respiratory: Respiratory effort is even, unlabored, Respiratory pattern is regular, symmetrical. GI: Reports upper abdominal pain, diarrhea, nausea, vomiting. Derm: Skin is intact, is healthy with good turgor. Musculoskeletal: Range of motion: intact in all extremities. Vital Signs: 21:26 BP 113 / 67; Pulse 105; Resp 20 S; Temp 97.1; Pulse Ox 97% ; Weight 79.38 kg; Height 5 ad5 ft. 6 in. (167.64 cm); Pain 9/10; 12/01 01:43 BP 132 / 78; Pulse 89; Resp 16; Pulse Ox 98% on R/A; iw 11/30 21:26 Body Mass Index 28.25 (79.38 kg, 167.64 cm) ad5 ED Course: 11/30 21:24 Patient arrived in ED. am4 21:28 Triage completed. ad5 21:58 Eda Eason, NAVEEN is Primary Nurse. iw 21:58 Dixon Carrasco PA is PHCP. cp 21:58 Tony Omalley MD is Attending Physician. cp 22:08 Arm band placed on. iw 22:08 Patient has correct armband on for positive identification. iw 22:21 Inserted saline lock: 22 gauge in left forearm, using aseptic technique. Missed ds4 attempt(s): 22 gauge in right forearm. Bleeding controlled, band aid applied, catheter tip intact. 12/01 01:04 Horacio Uribe MD is Referral Physician. cp 01:43 No provider procedures requiring assistance completed. IV discontinued, intact, iw bleeding controlled, No redness/swelling at site. Pressure dressing applied. Administered Medications: 11/30 22:29 Drug: Bentyl (dicyclomine) 20 mg Route: PO; iw 22:29 Drug: Zofran (Ondansetron) 4 mg Route: PO; iw 12/01 00:30 Drug: NS 0.9% 1000 ml Route: IV; Rate: 1 bolus; Site: left forearm; iw 00:31 Drug: GI Cocktail without - (Maalox Suspension 30 ml, Lidocaine Liquid 2 % 15 iw ml) Route: PO; 00:40 Drug: Demerol (meperidine) 25 mg Route: IVP; Site: left forearm; iw Outcome: 01:04 Discharge ordered by . cp 01:42 Discharged to home ambulatory, with family. iw 01:42 Condition: good 01:42 Discharge instructions given to patient, Instructed on discharge instructions, follow up and referral plans. medication usage, Demonstrated understanding of instructions, follow-up care, medications, Prescriptions given X 3. 01:43 Patient left the ED. iw Signatures: Eda Eason RN RN Luis De Anda ds4 Dixon Carrasco PA PA cp Martinez, Ashley am4 Nicolas Culver ad5
[2020-12-01 01:51] VITALS: TEMP 97.1
[2020-12-01 01:53] VITALS: BP 132/78; O2SAT 98
== END 2020-12-01 01:43 | disposition home or self-care (01) ==
LOC: ER 21:21
DX: R10.13 Epigastric pain (principal); F41.9 Anxiety disorder, unspecified; F32.9 Major depressive disorder, single episode, unspecified; F43.10 Post-traumatic stress disorder, unspecified
CPT/HCPCS: 36415; 80048; 80076; 81003; 81025; 83690; 85025; 96374; 99283; J2175; J7030

== ENCOUNTER 2021-08-20 20:03 | Emergency (ER) | payer SELFPAY ==
--- OUTSIDE RECORDS SUMMARY | 2021-08-20 20:06 | XMS REPORT | Continuity of Care Document ---
:1980 Author Organization [facility] t Address [address] [place] [address] Care Team Providers Name Role Phone Pcp, Does Not Have A Primary Care Physician Lisa George Attending Clinician Lisa PIPER Attending Clinician Unavailable Doctor Unassigned, Name Attending Clinician Unavailable Problems Condition Condition Condition Status Onset Resolution Last Treating Co mments Source Name Details Category Date Date Treatment Clinician Date No known No known Disease Unive rs active active ity of problems problems [facility] Allergies, Adverse Reactions, Alerts Allergy Allergy Status Severity Reaction(s) Onset Inactive Treating Comm ents Source Name Type Date Date Clinician NO KNOWN Drug Active Univers ALLERGIE Class ity of S [facility] Social History Social Habit Start Date Stop Date Quantity Comments Source Exposure to Not sure [place] of SARS-CoV-2 [facility] (event) [place] History of Cigarette Smoker Universi ty of tobacco use [facility] Alcohol intake 2021-05-06 2021-05-06 Lifetime University of 00:00:00 00:00:00 non-drinker [facility] (finding) Branch Tobacco use and 2021-05-06 2021-05-06 Never used Universit y of exposure 00:00:00 00:00:00 [facility] Sex Ass[birth year] Universit y of 00:00:00 00:00:00 [facility] Smoking Status Start Date Stop Date Source Unknown if ever smoked [facility] Current every day smoker 2021-05-06 00:00:00 [facility]ations Ordered Filled Start Stop Current Ordering Indication Dosage Frequency Signature Comments Components Source Medication Medication Date Date Medication? Clinician (SIG) Name Name mauro 2020-06- No [id number] 40mg [facility] 07-06 ity of acetonide 18:15: 17:13 [place] (KENALOG) 00 :00 Medical injection Branch 40 mg triamcinolo 2020-06- No [id number] 40mg 40 mg, [facility] 07-06 Intramuscu ity of acetonide 18:15: 17:13 [place], ONCE, [place] (KE[place]LOG[place] 00 :00 1 dose, On Medi aubree injection [place] 40 mg 05/06/21 at 1215, Routine methylPREDN 2020-06 Yes [id number] Take by [facility] ISolone 07-06 mouth ity of (MEDROL, 00:00: SEE-INSTRU Unruly as ELIEL,) 4 mg 00 CTIONS. Medica l tablets follow [place] package directions yfnamcinolo 2020-06- No [id number] Apply to [facility] 07-06 area(s) 2 ity of acetonide 00:00: 05:59 (two) [place] 0.1 % 00 :00 times Medical ointment daily for Branch 7 days. DULoxetine 2020-06 Yes 60mg Take 60 mg U nivers 60 mg 0-21 by mouth ity of capsule 00:00: daily. [address] clonazePAM 2020-06 Yes 1mg Take 1 mg Un quin 1 mg tablet 0-20 by mouth 2 it y of 00:00: (two) [place] 00 times Medical daily. [place] Vital Signs Vital Name Observation Time Observation Value Comments Source Systolic blood 2021-05-06 16:41:00 129 mm[Hg] Univer sity of pressure [facility] Diastolic blood 2021-05-06 16:41:00 90 mm[Hg[facility] 2021-05-06 16:41:00 62 /min [facility] Body temperature 2021-05-06 16:41:00 36.78 Niki [facility] Respiratory rate 2021-05-06 16:41:00 18 /min [facility] Body height 2021-05-06 16:41:00 167.6 cm [facility] Body weight 2021-05-06 16:41:00 81.693 kg [facility] BMI 2021-05-06 16:41:00 29.07 kg/m2 [facility] Oxygen saturation in 2021-05-06 16:41:00 98 /min [facility] Arterial blood by [facility] Pulse oximetry Branch Procedures Procedure Date / Time Performed Performing Clinician [facility] e CONSENT/REFUSAL FOR 2021-05-06 16:34:41 Doctor Unassigned, No Un [facility] DIAGNOSIS AND Name [facility] TREATMENT Encounters Start End Encounter Admission Attending Care Care Encounter Source Date/Time Date/Time Type Type Clinicians Facility Department ID 2021-05-06 2021-05-06 Urgent [facility] [id number] Univers 10:36:31 10:56:31 [facility] [id number] ity of [place] [id number] Unruly as ANALI?BLEA [id number] [address] MEDICAL OFFICE BUILDING 2021-05-06 2021-05-06 Outpatient R [facility] [id number] Univers 10:40:00 10:40:00 SAPNA melendez o f [facility] 2021-05-06 2021-05-06 Orders Doctor WILKINSON [id number] Univers 00:00:00 00:00:00 Only Unassigned, VENKAT [id number] ity of [place] [facility] [id number] Unruly as [id number] [facility] 009 Branch Results This patient has no known results.
--- NOTE | 2021-08-20 21:27 | ER ---
Nurse's Notes [facility] Name: Minesh Hanley Age: 40 yrs Sex: Female : 1980 Arrival Date: 08/20/2021 Time: 20:04 Bed Waiting Private MD: Diagnosis: Presentation: 08/20 20:52 Chief complaint: EMS states: multiple episodes over the past week of hallucinations and lg3 outbursts. family called EMS for help. history of anxiety, MDD, PTSD. Coronavirus screen: Client denies travel out of the [place] in the last 14 days. At this time, the client does not indicate any symptoms associated with coronavirus-19. Ebola Screen: No symptoms or risks identified at this time. Initial Sepsis Screen: Does the patient meet any 2 criteria? No. Patient's initial sepsis screen is negative. Does the patient have a suspected source of infection? No. Patient's initial sepsis screen is negative. Risk Assessment: Do you want to hurt yourself or someone else? Patient reports no desire to harm self or others. Onset of symptoms is unknown. 20:52 Method Of Arrival: EMS: [facility] lg3 20:52 Acuity: CHARLEEN 3 lg3 Triage Assessment: 20:55 General: Appears in no apparent distress. comfortable, Behavior is cooperative, lg3 anxious. Pain: Denies pain. EENT: No deficits noted. Neuro: Level of Consciousness is awake, alert, obeys commands, Oriented to person, place, time, situation. Cardiovascular: No deficits noted. Respiratory: Airway is patent Trachea midline Respiratory effort is even, unlabored, Respiratory pattern is regular, symmetrical. GI: No deficits noted. No signs and/or symptoms were reported involving the gastrointestinal system. : No deficits noted. No signs and/or symptoms were reported regarding the genitourinary system. Derm: No deficits noted. No signs and/or symptoms reported regarding the dermatologic system. Musculoskeletal: No deficits noted. No signs and/or symptoms reported regarding the musculoskeletal system. 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 - Social history:: Smoking status: Reported history of juuling and/or vaping. Patient/guardian denies using alcohol, street drugs. Vital Signs: 20:52 BP 129 / 70; Pulse 84; Resp 20 S; Temp 98.2(TE); Pulse Ox 99% on R/A; Weight 79.38 kg lg3 (R); Height 5 ft. 6 in. (167.64 cm) (R); Pain 0/10; 20:52 Body Mass Index 28.25 (79.38 kg, 167.64 cm) lg3 NIH Stroke Scale Scores: 20:55 NIHSS Score: 0 lg3 ED Course: 20:04 Patient arrived in ED. kc5 20:55 Triage completed. lg3 20:55 Arm band placed on right wrist. lg3 21:14 Santhosh Arenas MD is Attending Physician. kdr Administered Medications: No medications were administered Outcome: 21:27 Patient left the ED. lg3 NIH Stroke Scale - NIH Stroke Score Date: 08/20/2021 Time: 20:55 Total Score = 0 1a. Level of Consciousness (LOC) - 0(Alert) 1b. Level of Consciousness (LOC) (Month \T\ Age) - 0(Both) 1c. LOC Commands (Open \T\ Closes Eyes/Manager Equity) - 0(Both) 2. Best Gaze (Lateral Gaze Paresis) - 0(Normal) 3. Visual Field Loss - 0(No visual loss) 4. Facial Palsy - 0(Normal) 5a. Left Arm: Motor (10-second hold) - 0(No drift) 5b. Right Arm: Motor (10-second hold) - 0(No drift) 6a. Left Leg: Motor (5-second hold - always test supine) - 0(No drift) 6b. Right Leg: Motor (5-second hold - always test supine) - 0(No drift) 7. Limb Ataxia (finger/nose \T\ heel/anne - test with eyes open) - 0(Absent) 8. Sensory Loss (pinprick arms/legs/face) - 0(Normal) 9. Best Language: Aphasia (description/naming/reading) - 0(No aphasia) 10. Dysarthria (speech clarity - read or repeat words) - 0(Normal) 11. Extinction and Inattention (visual/tactile/auditory/spatial/personal) - 0(No abnormality) Initials: lg3 Signatures: Santhosh Arenas MD MD kdr Diane Garcia RN RN lg3 Gricelda Davis kc5 Corrections: (The following items were deleted from the chart) 21:00 20:52 Chief complaint: EMS states: multiple episodes over the past week of lg3 hallucinations and outbursts. history of anxiety, MDD, PTSD. lg3
[2021-08-20 23:04] VITALS: BP 129/70; TEMP 98.2; O2SAT 99
== END 2021-08-20 21:27 | disposition left against medical advice (07) ==
LOC: ER 20:03
DX: Z53.21 Procedure and treatment not carried out due to patient leaving prior to being seen by health care provider (principal)
CPT/HCPCS: 99282

== ENCOUNTER 2021-09-13 11:42 | Emergency (ER) | payer SELFPAY ==
--- OUTSIDE RECORDS SUMMARY | 2021-09-13 11:45 | XMS REPORT | Continuity of Care Document ---
:1980 Author Organization [facility] t Address [address] [place] [address] Care Team Providers Name Role Phone Pcp, Does Not Have A Primary Care Physician Lisa George Attending Clinician Lisa PIPER Attending Clinician Unavailable Doctor Unassigned, Name Attending Clinician Unavailable Problems Condition Condition Condition Status Onset Resolution Last Treating Co mments Source Name Details Category Date Date Treatment Clinician Date No known No known Disease Unive rs active active ity of problems problems [facility] Allergies, Adverse Reactions, Alerts Allergy Allergy Status Severity Reaction(s) Onset Inactive Treating Comm ents Source Name Type Date Date Clinician NO KNOWN Drug Active Univers ALLERGIE Class ity of S [facility] Social History Social Habit Start Date Stop Date Quantity Comments Source Exposure to Not sure [place] [facility] SARS-CoV-2 [facility] (event) [place] History of Cigarette Smoker Universi ty of tobacco use [facility] Alcohol intake 2021-05-06 2021-05-06 Lifetime University of 00:00:00 00:00:00 non-drinker [facility] (finding) Branch Tobacco use and 2021-05-06 2021-05-06 Never used Universit y of exposure 00:00:00 00:00:00 [facility] Sex Assigned At [birth year] Universit y of 00:00:00 00:00:00 [facility] Smoking Status Start Date Stop Date Source Unknown if ever smoked [facility] Current every day smoker 2021-05-06 00:00:00 [facility] Ordered Filled Start Stop Current Ordering Indication Dosage Frequency Signature Comments Components Source Medication Medication Date Date Medication? Clinician (SIG) Name Name mauro 2020-06- No [id number] 40mg [facility] 07-06 ity of acetonide 18:15: 17:13 [place] (KENALOG) 00 :00 Medical injection Branch 40 mg triamcinolo 2020-06- No [id number] 40mg 40 mg, [facility] 07-06 Intramuscu ity of acetonide 18:15: 17:13 lar, ONCE, [place] (KE[place]LOG) 00 :00 1 dose, On Medi aubree injection Sun [place] 40 mg 05/06/21 at 1215, Routine methylPREDN 2020-06 Yes [id number] Take by [facility] ISolone 07-06 mouth ity of (MEDROL, 00:00: SEE-INSTRU Unruly as ELIEL,) 4 mg 00 CTIONS. Medica l tablets follow [place] package directions yfnamcinolo 2020-06- No [id number] Apply to [facility] 07-06 area(s) 2 ity of acetonide 00:00: 05:59 (two) [place] 0.1 % 00 :00 times Medical ointment daily for Branch 7 days. DULoxetine 2020-06 Yes 60mg Take 60 mg U nivers 60 mg 0-21 by mouth ity of capsule 00:00: daily. [address] clonazePAM 2020-06 Yes 1mg Take 1 mg Un quin 1 mg tablet 0-20 by mouth 2 it y of 00:00: (two) [place] 00 times Medical daily. [place] Vital Signs Vital Name Observation Time Observation Value Comments Source Systolic blood 2021-05-06 16:41:00 129 mm[Hg] Univer sity of pressure [facility] Diastolic blood 2021-05-06 16:41:00 90 [facility]Hg[facility] 2021-05-06 16:41:00 62 /min [facility] Body temperature 2021-05-06 16:41:00 36.78 Niki [facility] Respiratory rate 2021-05-06 16:41:00 18 /min [facility] Body height 2021-05-06 16:41:[address] [facility] Body weight 2021-05-06 16:41:[address] [facility] BMI 2021-05-06 16:41:00 29.07 kg/m2 [facility] Oxygen saturation in 2021-05-06 16:41:00 98 /min [facility] Arterial blood by [facility] Pulse oximetry Branch Procedures Procedure Date / Time Performed Performing Clinician [facility] e CONSENT/REFUSAL FOR 2021-05-06 16:34:41 Doctor Unassigned, No Un [facility] DIAGNOSIS AND Name [facility] TREATMENT Encounters Start End Encounter Admission Attending Care Care Encounter Source Date/Time Date/Time Type Type Clinicians Facility Department ID 2021-05-06 2021-05-06 Urgent [facility] [id number] Univers 10:36:31 10:56:31 [id number] ity of [place] [id number] Unruly as ANALI?BLEA [id number] [address] MEDICAL OFFICE BUILDING 2021-05-06 2021-05-06 Outpatient R [facility] [id number] Univers 10:40:00 10:40:00 SAPNA melendez o f [facility] 2021-05-06 2021-05-06 Orders Doctor WILKINSON [id number] Univers 00:00:00 00:00:00 Only Unassigned, VENKAT [id number] ity of [place] [facility] [id number] Unruly as [id number] [facility] 009 Branch Results This patient has no known results.
[2021-09-13] MEDS ORDERED: clonazePAM 1 MG TAB ONE (12:07)
--- NOTE | 2021-09-13 12:32 | ER ---
Nurse's Notes [facility] Name: Minesh Hanley Age: 40 yrs Sex: Female : 1980 Arrival Date: 09/13/2021 Time: 11:43 Bed 26 Private MD: Diagnosis: Generalized anxiety disorder;Post-traumatic stress disorder (PTSD) Presentation: 09/13 11:45 Note pt still signing registration paperwork. tw2 11:48 Chief complaint: Patient states: my doctor is a piece of tomy. he accused me of wanting tw2 xanax. he told me to go to the ER. he refilled on 08/13 but it was the klonopin. i didn't want to go back to him. he lied about me so i tried to find a general practitioner to help but i havent been able to. i dont take xanax. i take klonopin 1 mg. Friday was the last dose. it does help. basically if i could just get a refill. Coronavirus screen: At this time, the client does not indicate any symptoms associated with coronavirus-19. Ebola Screen: Patient denies travel to an Ebola-affected area in the 21 days before illness onset. Initial Sepsis Screen: Does the patient meet any 2 criteria? No. Patient's initial sepsis screen is negative. Does the patient have a suspected source of infection? No. Patient's initial sepsis screen is negative. Risk Assessment: Do you want to hurt yourself or someone else? Patient reports no desire to harm self or others. Onset of symptoms was September 13, 2021. 11:48 Method Of Arrival: Ambulatory tw2 11:48 Acuity: CHARLEEN 3 tw2 11:51 Chief complaint: Patient states: i also feel some tingling and muscle rigidity started tw2 today. i havent gotten much sleep. Triage Assessment: 11:50 General: Appears in no apparent distress. Behavior is cooperative, crying. Pain: Denies tw2 pain. Derm: Reports tingling. Historical: - Allergies: 11:51 No Known Allergies; tw2 - Home Meds: 11:45 Klonopin Oral [Active]; Cymbalta Oral [Active]; tw2 - PMHx: 11:45 Anxiety; Depression; Ovarian cyst; psy cutter-depression; PTSD; tw2 - PSHx: 11:45 Cholecystectomy; tw2 - Immunization history:: Client reports having NOT received the Covid vaccine. Flu vaccine status is unknown. - Social history:: Smoking status: Reported history of juuling and/or vaping. Screenin:45 Abuse screen: Denies threats or abuse. Nutritional screening: No deficits noted. tw2 Tuberculosis screening: No symptoms or risk factors identified. Fall Risk None identified. Assessment: 12:07 General: Appears in no apparent distress. uncomfortable, Behavior is cooperative, ld1 anxious. Pain: Denies pain. Neuro: Level of Consciousness is awake, alert, obeys commands, Oriented to person, place, time, situation. Cardiovascular: Capillary refill < 3 seconds Patient's skin is warm and dry. Rhythm is regular. Respiratory: Airway is patent Respiratory effort is even, unlabored. GI: Abdomen is flat, non-distended. : No signs and/or symptoms were reported regarding the genitourinary system. EENT: No signs and/or symptoms were reported regarding the EENT system. Derm: No signs and/or symptoms reported regarding the dermatologic system. Musculoskeletal: No signs and/or symptoms reported regarding the musculoskeletal system. Vital Signs: 11:48 BP 153 / 106; Pulse 88; Resp 19; Temp 98.1(TE); Pulse Ox 100% on R/A; tw2 12:07 BP 149 / 99; Pulse 78; Resp 18; Pulse Ox 98% on R/A; Pain 0/10; ld1 12:44 BP 153 / 90; Pulse 80; Resp 18; Pulse Ox 98% on R/A; ld1 ED Course: 11:43 Patient arrived in ED. ds1 11:45 Arm band placed on. tw2 11:50 Triage completed. tw2 11:53 Bed in low position. Call light in reach. tw2 11:55 Carlos Alberto Pinon DO is Attending Physician. ms3 12:02 Noris Monge, NAVEEN is Primary Nurse. ld1 12:07 No provider procedures requiring assistance completed. ld1 12:44 Patient did not have IV access during this emergency room visit. ld1 Administered Medications: 12:05 Drug: KLONopin (clonazePAM) 1 mg Route: PO; ld1 Outcome: 12:31 Discharge ordered by . ms3 12:45 Discharged to home ambulatory. ld1 12:45 Condition: stable 12:45 Discharge instructions given to patient, Instructed on discharge instructions, follow up and referral plans. Demonstrated understanding of instructions, follow-up care. 12:45 Patient left the ED. ld1 Signatures: Sarah Carter ds1 Kathi Botello, RN RN tw2 Carlos Alberto Pinon, DO ms3 Noris Monge RN RN ld1 Corrections: (The following items were deleted from the chart) 11:53 11:48 Chief complaint: Patient states: my doctor is a piece of crap. he accused me of tw2 wanting xanax. he told me to go to the ER. he refilled in 08/13. i didn't want to go back to him. he lied about me so i tried to find a general practicitioner to help but i havent been able to. i dont take xanax. i take klonopin 1 mg. Friday was the last dose. it does help. tw2 12:00 11:48 Chief complaint: Patient states: my doctor is a piece of crap. he accused me of tw2 wanting xanax. he told me to go to the ER. he refilled in 08/13. i didn't want to go back to him. he lied about me so i tried to find a general practitioner to help but i havent been able to. i dont take xanax. i take klonopin 1 mg. Friday was the last dose. it does help. basically if i could just get a refill. tw2
--- NOTE | 2021-09-13 12:32 | EDPHYS ---
Physician Documentation [facility] Name: Minesh Hanley Age: 40 yrs Sex: Female : 1980 Arrival Date: 09/13/2021 Time: 11:43 Bed 26 Private MD: ED Physician Carlos Alberto Pinon Historical: - Allergies: 09/13 11:51 No Known Allergies; tw2 - Home Meds: 11:45 Klonopin Oral [Active]; Cymbalta Oral [Active]; tw2 - PMHx: 11:45 Anxiety; Depression; Ovarian cyst; psy cutter-depression; PTSD; tw2 - PSHx: 11:45 Cholecystectomy; tw2 - Immunization history:: Client reports having NOT received the Covid vaccine. Flu vaccine status is unknown. - Social history:: Smoking status: Reported history of juuling and/or vaping. Vital Signs: 11:48 BP 153 / 106; Pulse 88; Resp 19; Temp 98.1(TE); Pulse Ox 100% on R/A; tw2 12:07 BP 149 / 99; Pulse 78; Resp 18; Pulse Ox 98% on R/A; Pain 0/10; ld1 12:44 BP 153 / 90; Pulse 80; Resp 18; Pulse Ox 98% on R/A; ld1 MDM: 12:01 Patient medically screened. ms3 Administered Medications: 12:05 Drug: KLONopin (clonazePAM) 1 mg Route: PO; ld1 Disposition Summary: 09/13/21 12:31 Discharge Ordered Location: Home ms3 Condition: Stable ms3 Diagnosis - Generalized anxiety disorder ms3 - Post-traumatic stress disorder (PTSD) ms3 Followup: ms3 - With: Private Physician - When: 1 - 2 days - Reason: Continuance of care Discharge Instructions: - Discharge Summary Sheet ms3 - Generalized Anxiety Disorder, Adult ms3 Forms: - Medication Reconciliation Form ms3 - Thank You Letter ms3 - Antibiotic Education ms3 - Prescription Opioid Use ms3 Signatures: Kathi Botello, RN RN tw2 Carlos Alberto Pinon DO DO ms3 Noris Monge RN RN ld1
[2021-09-13 12:56] VITALS: TEMP 98.1
[2021-09-13 12:57] VITALS: O2SAT 98
[2021-09-13 12:59] VITALS: BP 153/90
== END 2021-09-13 12:45 | disposition home or self-care (01) ==
LOC: ER 11:42
DX: F41.1 Generalized anxiety disorder (principal); F43.10 Post-traumatic stress disorder, unspecified; F32.A Depression, unspecified
CPT/HCPCS: 99283

== ENCOUNTER 2022-12-08 17:45 | Emergency (ER) | payer SELFPAY ==
--- OUTSIDE RECORDS SUMMARY | 2022-12-08 17:48 | XMS REPORT | Continuity of Care Document ---
:1980 Author Organization [facility] t Address [address] [facility] [address] [place] [address] Care Team Providers Name Role Phone PCP, PATIENT DOES NOT HAVE A Primary Care Physician Unavaila ble Sapna George Attending Clinician SAPNA PIPER Attending Clinician Unavailable Problems Condition Condition Condition Status Onset Resolution Last Treating Co mments Source Name Details Category Date Date Treatment Clinician Date No known No known Disease Unive rs active active ity of problems problems [facility] Allergies, Adverse Reactions, Alerts Allergy Allergy Status Severity Reaction(s) Onset Inactive Treating Comm ents Source Name Type Date Date Clinician NO KNOWN Drug Active Univers ALLERGIE Class ity of S [facility] Social History Social Habit Start Date Stop Date Quantity Comments Source Exposure to Not sure [facility] SARS-CoV-2 [facility] (event) [place] History of Cigarette Smoker Universi ty of tobacco use [facility] Alcohol intake 2021-05-06 2021-05-06 Lifetime University of 00:00:00 00:00:00 non-drinker [facility] (finding) [place] Tobacco use and 2021-05-06 2021-05-06 Never used Universit y of exposure 00:00:00 00:00:00 [facility] Sex Assigned At [birth year] Universit y of 00:00:00 00:00:00 [facility] Smoking Status Start Date Stop Date Source Current every day smoker 2021-05-06 00:00:00 [facility] Ordered Filled Start Stop Current Ordering Indication Dosage Frequency Signature Comments Components Source Medication Medication Date Date Medication? Clinician (SIG) Name Name mauro 2020-06- No [id number] 40mg 40 mg, [facility] 07-06 Intramuscu ity of acetonide 18:15: 17:13 lar, ONCE, [place] (KENALOG) 00 :00 1 dose, On Medi aubree injection Sun [place] 40 mg 05/06/21 at 1215, Routine yfnamcinolo 2020-06- No [id number] 40mg [facility] 07-06 ity of acetonide 18:15: 17:13 [place] (KENALOG) 00 :00 Medical injection Branch 40 mg methylPREDN 2020-06 Yes [id number] Take by [facility] 07-06 mouth ity of (MEDROL, 00:00: SEE-INSTRU Unruly as ELIEL,) 4 mg 00 CTIONS. Medica l tablets follow [place] package directions mauro 2020-06- No [id number] Apply to [facility] 07-06 area(s) 2 ity of acetonide 00:00: 05:59 (two) [place] 0.1 % 00 :00 times Medical ointment daily for Branch 7 days. DULoxetine 2020-06 Yes 60mg Take 60 mg U nivers 60 mg 0-21 by mouth ity of capsule 00:00: daily. [address] clonazePAM 2020-06 Yes 1mg Take 1 mg Un quin 1 mg tablet 0-20 by mouth 2 it y of 00:00: (two) [place] 00 times Medical daily. [place] Vital Signs Vital Name Observation Time Observation Value Comments Source Systolic blood 2021-05-06 16:41:00 129 mm[Hg] Univer sity of pressure [facility] Diastolic blood 2021-05-06 16:41:00 90 mm[Hg] Unive rsity of pressure [facility] Heart rate 2021-05-06 16:41:00 62 /min [facility] Body temperature 2021-05-06 16:41:00 36.78 Niki [facility] Respiratory rate 2021-05-06 16:41:00 18 /min [facility] Body height 2021-05-06 16:41:00 167.6 cm [facility] Body weight 2021-05-06 16:41:00 81.693 kg [facility] BMI 2021-05-06 16:41:00 29.07 kg/m2 [facility] Oxygen saturation in 2021-05-06 16:41:00 98 /min University Arterial blood by [facility] Pulse oximetry Branch Procedures This patient has no known procedures. Encounters Start End Encounter Admission Attending Care Care Encounter Source Date/Time Date/Time Type Type Clinicians Facility Department ID 2021-05-06 2021-05-06 Ur[address] [facility] [id number] [facility] 10:36:31 10:56:31 Care [facility] [id number] al [facility] [id number] Unruly as ANALI?BLEA [id number] Id danny [address] MEDICAL OFFICE BUILDING 2021-05-06 2021-05-06 [id number] [facility] 10:40:00 10:40:00 SAPNA melendez o f [facility] Results This patient has no known results.
[2022-12-08 18:30] LABS: Specific Gravity 1.007 (1.005-1.030); Urine Bacteria <20 /HPF (<20); Urine Bilirubin NEGATIVE (Negative); Urine Blood 2+ (Negative); Urine Clarity Extremely Turbid (Clear); Urine Color Light-Yellow (Yellow); Urine Glucose NEGATIVE (Negative); Urine Mucus Slight /HPF (None Seen); Urine Protein 1+ (Negative); Urine RBC 21-50 /HPF (None Seen); Urine Urobilinogen Normal (Normal); Urine WBC Clump Rare /HPF (None Seen); Urine pH 5.5 (5.0-7.0)
[2022-12-08 18:33] LABS: Specific Gravity 1.007 (1.005-1.030)
--- NOTE | 2022-12-08 18:50 | ER ---
Nurse's Notes [facility] Name: Minesh Hanley Age: 41 yrs Sex: Female : 1980 Arrival Date: 12/08/2022 Time: 17:45 Bed 17 Private MD: Diagnosis: UTI/ Urinary tract infection, site not specified Presentation: 12/08 18:11 Chief complaint: Patient states: is having left back pain, making me nauseous, dry iw heaving since 0600 today. Coronavirus screen: At this time, the client does not indicate any symptoms associated with coronavirus-19. Ebola Screen: Patient negative for fever greater than or equal to 101.5 degrees Fahrenheit, and additional compatible Ebola Virus Disease symptoms Patient denies exposure to infectious person. Patient denies travel to an Ebola-affected area in the 21 days before illness onset. No symptoms or risks identified at this time. 18:11 Method Of Arrival: Ambulatory iw 18:11 Initial Sepsis Screen: Does the patient meet any 2 criteria? No. Patient's initial iw sepsis screen is negative. Does the patient have a suspected source of infection? No. Patient's initial sepsis screen is negative. Risk Assessment: Do you want to hurt yourself or someone else? Patient reports no desire to harm self or others. Onset of symptoms was December 08, 2022. 18:11 Acuity: CHARLEEN 3 iw Historical: - Allergies: 18:10 No Known Allergies; iw - Home Meds: 18:10 Cymbalta Oral [Active]; Klonopin Oral [Active]; iw - PMHx: 18:10 Anxiety; Depression; Ovarian cyst; psy cutter-depression; PTSD; iw - PSHx: 18:10 Appendectomy; Cholecystectomy; iw - Immunization history:: Adult Immunizations. - Social history:: Smoking status: . Screenin:05 [facility] ED Fall Risk Assessment (Adult) History of falling in the last 3 months, iw including since admission. Abuse screen: Denies threats or abuse. Denies injuries from another. Nutritional screening: No deficits noted. Tuberculosis screening: No symptoms or risk factors identified. Assessment: 19:05 General: Appears in no apparent distress. Behavior is calm, cooperative. Pain: iw Complains of pain in left lower quadrant and right lower quadrant. Neuro: Level of Consciousness is awake, alert, obeys commands, Oriented to person, place, time, situation, Moves all extremities. Full function. Cardiovascular: Patient's skin is warm and dry. Respiratory: Respiratory effort is even, unlabored, Respiratory pattern is regular, symmetrical. : Reports pain in left in suprapubic area flank(s). Derm: Skin is intact, is healthy with good turgor. Musculoskeletal: Range of motion: intact in all extremities. Vital Signs: 18:11 BP 102 / 81; Pulse 80; Resp 16; Temp 98; Pulse Ox 100% on R/A; Weight 79.38 kg; Height iw 5 ft. 6 in. ; Pain 6/10; 18:11 Body Mass Index 28.25 (79.38 kg, 167.64 cm) iw 18:11 Pain Scale: Adult iw ED Course: 17:48 Patient arrived in ED. im 17:50 Kayla Avilez FNP-C [facility] snw 17:50 Jay Neil MD is Attending Physician. snw 18:12 Triage completed. iw 18:12 Arm band placed on. iw 18:22 PREGU Sent. aa5 18:22 Urine W/Microscopic (UAM) Sent. aa5 19:05 Eda Eason, RN is Primary Nurse. iw 19:06 Patient has correct armband on for positive identification. iw 19:13 No provider procedures requiring assistance completed. Patient did not have IV access iw during this emergency room visit. Administered Medications: 19:04 Drug: Rocephin (cefTRIAXone) IM 1 grams Route: IM; Site: right deltoid; iw Medication: 19:06 VIS not applicable for this client. iw Outcome: 18:50 Discharge ordered by . snw 19:13 Discharged to home ambulatory. iw 19:13 Condition: good 19:13 Discharge instructions given to patient, Instructed on discharge instructions, follow up and referral plans. medication usage, Demonstrated understanding of instructions, follow-up care, medications, Prescriptions given X 1. 19:13 Patient left the ED. iw Signatures: Kayla Avilez FNP-C [employer]SE FATHER-Csnw Eda Eason, RN RN iw Claudine Cazares RN RN aaRosalina Mckeon im Corrections: (The following items were deleted from the chart) 18:12 18:11 BP 102 / 81; Pulse 80bpm; Resp 16bpm; Pulse Ox 100% RA; Temp 98F; iw iw
--- NOTE | 2022-12-08 18:51 | EDPHYS ---
Physician Documentation [facility] Name: Minesh Hanley Age: 41 yrs Sex: Female : 1980 Arrival Date: 12/08/2022 Time: 17:45 Bed 17 Private MD: ED Physician Jay Neil HPI: 12/08 18:22 This 41 yrs old Female presents to ER via Ambulatory with complaints of Flank Pain, snw Urinary Frequency. 18:22 The patient presents with urinary symptoms, dysuria, frequency, hematuria. Onset: The snw symptoms/episode began/occurred suddenly, at 06:00. Associated signs and symptoms: Pertinent positives: cramping, dysuria, Pertinent negatives: fever, nausea, vomiting. Severity of symptoms: At their worst the symptoms were moderate. The patient has experienced similar episodes in the past. Historical: - Allergies: 18:10 No Known Allergies; iw - Home Meds: 18:10 Cymbalta Oral [Active]; Klonopin Oral [Active]; iw - PMHx: 18:10 Anxiety; Depression; Ovarian cyst; psy cutter-depression; PTSD; iw - PSHx: 18:10 Appendectomy; Cholecystectomy; iw - Immunization history:: Adult Immunizations. - Social history:: Smoking status: . ROS: 18:21 Constitutional: Negative for fever, chills, and weight loss, Eyes: Negative for injury, snw pain, redness, and discharge, ENT: Negative for injury, pain, and discharge, Neck: Negative for injury, pain, and swelling, Cardiovascular: Negative for chest pain, palpitations, and edema, Respiratory: Negative for shortness of breath, cough, wheezing, and pleuritic chest pain, Back: Negative for injury and pain, MS/Extremity: Negative for injury and deformity, Skin: Negative for injury, rash, and discoloration, Neuro: Negative for headache, weakness, numbness, tingling, and seizure, Psych: Negative for depression, anxiety, suicide ideation, homicidal ideation, and hallucinations. 18:21 Abdomen/GI: Positive for abdominal pain, of the right lower quadrant and left lower quadrant. 18:21 : Positive for urinary frequency, burning with urination. Exam: 18:21 Constitutional: This is a well developed, well nourished patient who is awake, alert, snw and in no acute distress. Head/Face: Normocephalic, atraumatic. Eyes: Pupils equal round and reactive to light, extra-ocular motions intact. Lids and lashes normal. Conjunctiva and sclera are non-icteric and not injected. Cornea within normal limits. Periorbital areas with no swelling, redness, or edema. ENT: Nares patent. No nasal discharge, no septal abnormalities noted. Tympanic membranes are normal and external auditory canals are clear. Oropharynx with no redness, swelling, or masses, exudates, or evidence of obstruction, uvula midline. Mucous membranes moist. Neck: Trachea midline, no thyromegaly or masses palpated, and no cervical lymphadenopathy. Supple, full range of motion without nuchal rigidity, or vertebral point tenderness. No Meningismus. Chest/axilla: Normal chest wall appearance and motion. Nontender with no deformity. No lesions are appreciated. Cardiovascular: Regular rate and rhythm with a normal S1 and S2. No gallops, murmurs, or rubs. Normal PMI, no JVD. No pulse deficits. Respiratory: Lungs have equal breath sounds bilaterally, clear to auscultation and percussion. No rales, rhonchi or wheezes noted. No increased work of breathing, no retractions or nasal flaring. Back: No spinal tenderness. No costovertebral tenderness. Full range of motion. Skin: Warm, dry with normal turgor. Normal color with no rashes, no lesions, and no evidence of cellulitis. MS/ Extremity: Pulses equal, no cyanosis. Neurovascular intact. Full, normal range of motion. Neuro: Awake and alert, GCS 15, oriented to person, place, time, and situation. Cranial nerves II-XII grossly intact. Motor strength 5/5 in all extremities. Sensory grossly intact. Cerebellar exam normal. Normal gait. Psych: Awake, alert, with orientation to person, place and time. Behavior, mood, and affect are within normal limits. 18:21 Abdomen/GI: Inspection: abdomen appears normal, Bowel sounds: normal, Palpation: mild abdominal tenderness, in the right lower quadrant and left lower quadrant. Vital Signs: 18:11 BP 102 / 81; Pulse 80; Resp 16; Temp 98; Pulse Ox 100% on R/A; Weight 79.38 kg; Height iw 5 ft. 6 in. ; Pain 6/10; 18:11 Body Mass Index 28.25 (79.38 kg, 167.64 cm) iw 18:11 Pain Scale: Adult iw MDM: 18:02 Patient medically screened. snw 18:23 Differential diagnosis: urinary tract infection, vaginosis. Data reviewed: vital signs, snw nurses notes. Counseling: I had a detailed discussion with the patient and/or guardian regarding: the historical points, exam findings, and any diagnostic results supporting the discharge/admit diagnosis, lab results. Awaiting: labs results. 12/08 17:54 Order name: Urine W/Microscopic (UAM); Complete Time: 18:48 snw 12/08 17:54 Order name: PREGU; Complete Time: 18:48 snw 12/08 18:35 Order name: Urine Culture EDMS Administered Medications: 19:04 Drug: Rocephin (cefTRIAXone) IM 1 grams Route: IM; Site: right deltoid; iw Disposition Summary: 12/08/22 18:50 Discharge Ordered Location: Home snw Condition: Stable snw Diagnosis - UTI/ Urinary tract infection, site not specified snw Followup: snw - With: Emergency Department - When: As needed - Reason: Worsening of condition Followup: snw - With: Private Physician - When: 2 - 3 days - Reason: Recheck today's complaints, Continuance of care, Re-evaluation by your physician Discharge Instructions: - Discharge Summary Sheet snw - Dysuria snw - Urinary Tract Infection, Adult snw - Rehydration, Adult snw Forms: - Work release form snw - Family Work Release snw - Medication Reconciliation Form snw - Thank You Letter snw - Antibiotic Education snw - Prescription Opioid Use snw Prescriptions: - Augmentin 875-125 mg Oral Tablet - take 1 tablet by ORAL route every 12 hours for 10 days; 20 tablet; Refills: 0, snw Product Selection Permitted Addendum: 12/10/2022 09:00 Co-signature as Attending Physician, Jay Neil MD I reviewed the patient's care r n provided by the Advanced Practice Provider and agree with the diagnosis and treatment plan. Signatures: Dispatcher [employer] EDKayla Augustine, SHARA-[employer] BUILDING MAINTENANCE SUPERINTENDENT-Csnw Eda Eason RN RN iw Jay Neil MD MD rn
[2022-12-08] MEDS ORDERED: LIDOCAINE 1% MPF 5 ML VIAL ONE (19:07)
[2022-12-08] MEDS ORDERED: CEFTRIAXONE 1000 MG/VIAL ONE (19:07)
[2022-12-08 19:27] VITALS: BP 102/81; TEMP 98; O2SAT 100
== END 2022-12-08 19:13 | disposition home or self-care (01) ==
LOC: ER 17:45
DX: N39.0 Urinary tract infection, site not specified (principal)
CPT/HCPCS: 81001; 81025; 87077; 87086; 87088; 87186; 96372; 99284; J0696; J2001

== ENCOUNTER 2024-09-17 17:15 | Emergency (ER) | payer SELFPAY | END 2024-09-17 18:38 | disposition left against medical advice (07) | LOC: ER 17:15 | DX: Z02.9 Encounter for administrative examinations, unspecified (principal) ==

== ENCOUNTER 2024-09-17 18:54 | Emergency (ER) | payer SELFPAY ==
--- NOTE | 2024-09-17 21:42 | EDPHYS ---
Physician Documentation [facility] Name: Minesh Hanley Age: 43 yrs Sex: Female : 1980 Arrival Date: 09/17/2024 Time: 18:54 Bed DIS1 Private MD: ED Physician Alesia Baca HPI: 09/17 21:38 This 43 yrs old Female presents to ER via EMS with complaints of Abdominal Pain, Back kb Pain. 21:38 Pt is a 43 year old female who presents for upper abdominal pain that radiates to back kb that started 3 days ago. States she has had similar episodes in the past due to dehydration. Reports cholecystectomy and appendectomy in the past. Denies n/v/d, fever. ROS: 21:38 Constitutional: As per HPI kb Exam: 21:38 Constitutional: This is a well developed, well nourished patient who is awake, alert, kb and in no acute distress. Head/Face: Normocephalic, atraumatic. ENT: Moist Mucous membranes Cardiovascular: Regular rate Respiratory: Respirations even and unlabored. No increased work of breathing. Talking in full sentences Skin: Warm, dry with normal turgor. Normal color. MS/ Extremity: Pulses equal, no cyanosis. Neurovascular intact. Full, normal range of motion. Neuro: Awake and alert, GCS 15, oriented to person, place, time, and situation. 21:38 Abdomen/GI: Inspection: abdomen appears normal, Bowel sounds: normal, Palpation: soft, in all quadrants, mild abdominal tenderness, in the right upper quadrant and left upper quadrant, MDM: 18:57 Medical Screening Exam initiated kb 21:38 Differential diagnosis: gastritis, non-specific abd pain, pancreatitis. Data reviewed: kb vital signs, nurses notes. Historians other than the Patient: EMS: [facility]. ED course: Pt elected to leave from [facility] prior to diagnostic testing. MSE initiated by me, but not completed due to patient leaving facility. . 09/17 18:58 Order name: IV Saline Lock rhett 09/17 18:58 Order name: Labs collected and sent kb Administered Medications: No medications were administered Disposition Summary: 09/17/24 21:41 Eloped Notes: Disposition: after being seen by provider rhett Reason: (see nurse's notes) kb Condition: Stable kb Diagnosis - Upper abdominal pain, unspecified kb Signatures: Dispatcher [employer] EDJudy Stinson, MATERIAL ASSEMBLER-C MATERIAL ASSEMBLER-Ckb
--- NOTE | 2024-09-17 21:42 | ER ---
Nurse's Notes [facility] Name: Minesh Hanley Age: 43 yrs Sex: Female : 1980 Arrival Date: 09/17/2024 Time: 18:54 Bed DIS1 Private MD: Diagnosis: Upper abdominal pain, unspecified Presentation: 09/17 19:00 Chief complaint: EMS states: c/o abd pain for a few days, worse today, was at the hospital earlier today but did not want to wait in lobby. 20:00 Coronavirus screen: At this time, the client does not indicate any symptoms associated iw with coronavirus-19. Ebola Screen: No symptoms or risks identified at this time. Risk Assessment: Do you want to hurt yourself or someone else? Patient reports no desire to harm self or others. Onset of symptoms was September 15, 2024. 20:00 Method Of Arrival: EMS: [facility] iw 20:00 Acuity: CHARLEEN 3 iw ED Course: 18:56 Patient arrived in ED. mr 18:57 [facility]-C [facility] kb 18:57 Alesia Baca MD is Attending Physician. kb 20:01 Triage completed. iw Administered Medications: No medications were administered Outcome: 21:51 Patient left the ED. iw Signatures: uJdy Johnston FNP-C FNP-CkZahraa Fernandes, Reg Reg Eda Eason RN RN iw Corrections: (The following items were deleted from the chart) 20:01 19:00 Chief complaint: EMS states: c/o abd pain iw iw
== END 2024-09-17 21:51 | disposition left against medical advice (07) ==
LOC: ER 18:54
DX: R10.12 Left upper quadrant pain (principal); R10.11 Right upper quadrant pain
CPT/HCPCS: 99282